=== PATIENT | female | born 1990 | race Caucasian/White ===

== ENCOUNTER → 2019-08-03 11:02 | Outpatient (BNVA) | payer OTHER, SELFPAY | PROVIDERS: Visit Provider Family Medicine | DX: J02.0 Streptococcal pharyngitis (principal) | CPT/HCPCS: 87880 ==

== ENCOUNTER 2020-04-27 02:30 | Inpatient (IN) | payer OTHER, MEDICAID, SELFPAY ==
[2020-04-27] VITALS (70 sets, daily range): BP systolic 0–140; BP diastolic 0–86; PULSE 75–127; RESP 15–101; TEMP 36.2–36.8; O2SAT 54–100; BMI 27.2
[2020-04-27] MEDS: lactated ringers 1,000 ML 999 ML IV ×4 (02:00→13:10)
[2020-04-27 02:21] LABS: Basophils % 0.2 %; Eosinophils % 0.2 %; Hematocrit 34.8 % (37.0-47.0); Hemoglobin 11.4 g/dL (11.5-15.3); Lymphocytes # 2.7 10^3/uL (0.8-4.8); Lymphocytes % 26.1 %; Mean Corpuscular HGB Conc 32.8 g/dL (30.0-36.0); Mean Corpuscular Hemoglobin 29.8 pg (28.0-34.0); Mean Corpuscular Volume 91.1 fL (81-99); Mean Platelet Volume 12.9 fL (7.4-10.4); Monocytes # 0.7 10^3/uL (0.2-0.9); Monocytes % 6.6 %; Neutrophils # 6.82 10^3/uL (1.8-7.7); Neutrophils % 66.1 %; Nucleated Red Blood Cells % 0.4 %; Platelet Count 149 10^3/cmm (130-400); Red Blood Count 3.82 10^6/uL (4.1-5.3); Red Cell Distribution Width 14.9 % (12.1-15.1); White Blood Count 10.3 10^3/uL (4.0-10.0)
[2020-04-27 02:25] LABS: Cocaine Screen Urine Negative (Negative); Opiate Screen Urine Negative (Negative); PCP Screen Urine Negative (Negative); THC Screen Urine Negative (Negative)
[2020-04-27 02:41] LABS: Amphetamines Screen Urine Negative (Negative); Barbiturates Screen Urine Negative (Negative); Benzodiazepines Screen Urine Negative (Negative)
[2020-04-27] MEDS: metoclopramide 5 mg/mL SDV 2 mL 10 MG IV (02:49)
[2020-04-27] MEDS: famotidine 20 mg/2 mL INJ IVP (02:49)
[2020-04-27] MEDS: citric acid-sodium citrate 30 mL UDC PO (02:49)
--- NOTE | 2020-04-27 03:04 | ANES.PREANE2 ---
Pre-Anesthetic Assessment Pre-Anesthetic Assessment: Height/Weight: Height 1.57 m Weight 67.585 kg Temp Pulse BP Pulse Ox 98.0 F 92 0/0 100 04/27/20 01:34 CS T 04/27/20 02:41 04/27/20 02:52 04/27/20 02:55 Preop Diagnosis: Repeat Familial anesthetic complications: None Was Beta Florentino taken within 24 hours: N/A Last intake: Ate at 1030 pm last night Exam: Pre-Anes Outpt Exam: alert, oriented x 3, clear to auscultation bilaterally and regular rate & rhythm Airway: MP: 2 Dentition: Full Anesthetic Plan: ASA status: 2E Anesthesia: Regional (specify below) Risk of > 500 ml blood loss (7ml/kg in children): Yes, adequate IV access and fluids planned Other Pertinent Information: Patient was admitted to [facility] [place] for Covid. Per patient she tested positive on 04/04. Per CDC guidelines for healthcare workers in patients with severe illness, covid positive patients may return to work/end isolation when at least 10 days have elapsed since symptoms began, 24 hrs without fever, and symptoms are improving. She meets these criteria. We will proceed in OB OR, but staff will use N95 masks d/t risk of intubation. Meds/Allergies Current Medications: Current Medications Generic Name Dose Route Start Last Admin Trade Name Freq PRN Reason Stop Dose Admin Lactated Ringer's 1,000 mls @ 999 m ls/hr 04/27/20 02:37 04/27/20 02:49 Lactated Ringers IV 04/27/20 03:37 999 mls/hr .Q1H1M ONE Administration PFSH Anesthesia PFSH: Medical History (Updated 04/27/20 @ 05:05 by Yao Lopez MD) Migraine headache Surgical History (Updated 04/27/20 @ 04:42 by Yao Lopez MD) S/P laparoscopic cholecystectomy (~10/2019) Was at the time. S/P primary low transverse (08/03/14) Performed by Dr. Lopez at [facility] in [place], [place]. Confirmed LTCS with 2 layer closure. Family History (Updated 04/27/20 @ 04:43 by Yao Lopez MD) Denies family history of Diabetes Anesthesia complication Bleeding disorder Hypertension Stroke Social History (Updated 04/27/20 @ 04:48 by Yao Lopez MD) Smoking and tobacco status: former smoker Quit status (tobacco): has quit using tobacco Year quit tobacco: 04/2019 Former quit date comment: Was smoking 1 PPD until switched to vaping in 2017. Quit in 04/2019. Smoking risk assessment/counseling performed?: Yes Alcohol intake: current Alcohol intake frequency: holidays/special occasions only Alcohol use comment: Denies alcohol during Substance/Drug Use: never Female Reproductive History: : 3 Para: 1 Spontaneous abortions: No Data Anesthesia CBC & Chem 7: 04/27/20 01:50 BAND ATTACHER 04/27/20 09:00 Other Labs: Laboratory Results - last 48 hr 04/27/20 04/27/20 04/27/20 01:50 BAND ATTACHER 01:50 BAND ATTACHER 02:00 WBC 10.3 H RBC 3.82 L Hgb 11.4 L Hct 34.8 L MCV 91.1 MCH 29.8 MCHC 32.8 RDW 14.9 Plt Count 149 MPV 12.9 H Neut % (Auto) 66.1 Lymph % (Auto) 26.1 [place] % (Auto) 6.6 Eos % (Auto) 0.2 Baso % (Auto) 0.2 Neut # (Auto) 6.82 Lymph # (Auto) 2.7 [place] # (Auto) 0.7 Eos # (Auto) 0.0 Baso # (Auto) 0.0 Nucleated RBC % (auto) 0.4 Nucleated RBCs # 0.0 Sodium Cancelled Potassium Cancelled Chloride Cancelled Carbon Dioxide Cancelled Anion Gap Cancelled BUN Cancelled Creatinine Cancelled GFR Calculation Cancelled Glucose Cancelled Calculated Osmolality Cancelled Calcium Cancelled Total Bilirubin Cancelled AST Cancelled ALT Cancelled Alkaline Phosphatase Cancelled Total Protein Cancelled Albumin Cancelled Globulin Cancelled Urine Opiates Screen Negative Ur Barbiturates Screen Negative Ur Phencyclidine Scrn Negative Ur Amphetamines Screen Negative U Benzodiazepines Scrn Negative Urine Cocaine Screen Negative U Marijuana (THC) Screen Negative Cardiac Studies: No Data to Display
[2020-04-27 03:17] LABS: Alanine Aminotransferase 55 U/L (0-33); Albumin Level 2.3 g/dL (3.5-5.2); Alkaline Phosphatase 317 IU/L (35-105); Aspartate Amino Transferase 69 U/L (0-32); Blood Urea Nitrogen 5 mg/dL (6-20); Calcium 7.4 mg/dL (8.5-10.5); Carbon Dioxide 17 mmol/L (22-29); Chloride 107 mmol/L (98-107); Globulin 2.7 g/dL (1.3-4.6); Glomerular Filtration Rate 41.3 mL/min (90-130); Glucose 66 mg/dL (65-115); Osmolality Calculated 301 mOsm/kg (285-295); Sodium 148 mmol/L (136-145); Total Bilirubin 0.9 mg/dL (0.15-1.2)
[2020-04-27 03:22] LABS: Anion Gap 27.1 (5-19); Potassium 3.1 mmol/L (3.5-5.1)
--- NOTE | 2020-04-27 04:25 | P.HP_ITS ---
Providers/Chief Complaint Admitting Physician: Yao Lopez MD Primary Care Provider: DOCTOR NOT ON STAFF Chief Complaint: Contractions HPI [facility] History of Present Illness Shana Mayberry is a 29 year old female, 3, para 1-0-1-1 with an EDC of 05/21/2020, which places her at 36-4/7 weeks gestation. care has been provided by Dr. Stallworth in [place]. Patient presented to labor and delivery at 01:00 on 04/27/2020 with complaint of contractions which started about 2 hours ago. She denied vaginal bleeding. She denied leaking of fluid. She reported baby had been moving. On presentation, she was found to be dottie every 3 to 4 minutes and was initially 70% effaced and 2 cm dilated. Fluid hydration was started. She was checked approximately 1 hour later and had made cervical change. She was admitted to the hospital. care was provided by Dr. Stallworth in [place], [place]. Her had been complicated by insulin requiring gestational diabetes. Patient states she has not been taking insulin due to her sugars being in the normal range . Patient reports she had also been hospitalized at [facility] in [place] on 04/04/2020 due to Covid and had spent 1 week in the hospital. records have been requested from [facility]. Denies currently taking any medications. Review of Systems Const: Denies: fever(s) or chills ENMT: Denies: throat pain or nasal congestion Card: Denies: chest pain, palpitations or lightheadedness Resp: Reports: non-productive cough; Denies: dyspnea or wheezing GI: Reports: abdominal pain (From contractions); Denies: nausea, vomiting, diarrhea or constipation : Denies: dysuria, vaginal bleeding, vaginal discharge or other (Leaking of fluid) Neuro: Denies: headache(s) or dizziness Psych: Denies: anxiety or depression Endo: Denies: cold intolerance or heat intolerance Kennedy/Lymph: Denies: easy bruising or easy bleeding Medications/Allergies Allergies Allergy/AdvReac Type Severity Reaction Status Date / Time No Known Allergies Allergy Verified 04/27/20 02:07 PFSH [facility] PFSH: Medical History (Updated 04/27/20 @ 05:05 by Yao Lopez MD) Migraine headache Surgical History (Updated 04/27/20 @ 04:42 by Yao Lopez MD) S/P laparoscopic cholecystectomy (~10/2019) Was at the time. S/P primary low transverse (08/03/14) Performed by Dr. Lopez at [facility] in [place], [place]. Confirmed LTCS with 2 layer closure. Family History (Updated 04/27/20 @ 04:43 by Yao Lopez MD) Denies family history of Diabetes Anesthesia complication Bleeding disorder Hypertension Stroke Social History (Updated 04/27/20 @ 04:48 by Yao Lopez MD) Smoking and tobacco status: former smoker Quit status (tobacco): has quit using tobacco Year quit tobacco: 04/2019 Former quit date comment: Was smoking 1 PPD until switched to vaping in 2018. Quit in 04/2019. Smoking risk assessment/counseling performed?: Yes Alcohol intake: current Alcohol intake frequency: holidays/special occasions only Alcohol use comment: Denies alcohol during Substance/Drug Use: never Other Female Reproductive History: Hx Age of Menarche: 14 Duration of menses: 3-5 days Cycle Length: every 28 to 30 days Menstrual flow: normal/abnormal: normal History History History 3 Term 1 Miscarriages/Ectopic 1 0 Living Children 1 Other History: 1 ---> 08/03/2014. Female, 7 lbs 0 oz, 40-2/7 weeks. Epidural. Primary LTCS due to arrest of dilation. Performed by Dr. Lopez at [facility] in [place], [place]. Did not dilate past 9 cm. 2 ---> Miscarriage Care BRIDGET Calculator Estimated Delivery Date Method Current WG Current Estimate 05/21/20 LMP (Certain) 36w 4d Vitals/I&O/Wt Last Vital Signs Temp 98.0 F 04/27/20 01:34 STAFF RADIATION THERAPIST Pulse 92 04/27/20 02:41 BP 0/0 04/27/20 02:52 Pulse Ox 100 04/27/20 02:55 Weight last 48 hrs Weight 149 lb Physical Exam Const: COMMON NORMALS: no acute distress, average body habitus, alert and well nourished GENERAL APPEARANCE: well developed ORIENTATION/CONSCIOUSNESS: Yes oriented to person, Yes oriented to place and Yes oriented to time Resp: COMMON NORMALS: normal respiratory effort and clear to auscultation bilaterally AUSCULTATION: clear to auscultation bilaterally Cardio: COMMON NORMALS: regular rate, regular rhythm, No gallops present (Cardio), No murmurs present (Cardio) and No rub (Cardio) RATE: regular rate RHYTHM: regular rhythm GI: COMMON NORMALS: Soft to palpation, non-tender, No hepatosplenomegaly present and no masses (Except for gravid uterus) INSPECTION: Yes gravid abdomen AUSCULTATION: Yes normoactive bowel sounds PALPATION: Yes Soft to palpation, Yes No hepatosplenomegaly present and No Hernia present : EXTERNAL FEMALE EXAM: No Hernia present OTHER: External genitalia: Normal in appearance with no lesions seen. Normal hair distribution. Anus/perineum: No perineal lesions noted. Urethral meatus: Normal in size and location with no lesions or prolapse noted. Urethra: Nontender with no palpable masses noted. Bladder: Nontender with no palpable masses noted. Vagina: No palpable masses noted. Cervix: 90% effaced, 7 to 8 cm dilated, 0 station, bulging membranes. Uterus: Gravid Adnexa: Neither palpable Extremity: COMMON NORMALS: no calf tenderness NARRATIVE EXTREMITY EXAM: Trace to 1+ lower extremity edema Neuro: SENSORIUM/ORIENTATION: Yes alert, Yes oriented to person, Yes oriented to place and Yes oriented to time Psych: COMMON NORMALS: normal affect MOOD & AFFECT: Yes euthymic mood Skin: COMMON NORMALS: no rashes or lesions noted GENERAL SKIN EXAM: no rashes or lesions noted Urinary Catheter Management^: Figueroa: Cath Placed During This Visit: yes Urinary Catheter Date of Insertion: 04/27/20 Urinary Catheter Time of Insertion: 03:20 Data : 04/27/20 01:50 STAFF RADIATION THERAPIST 04/27/20 02:45 A&P Assessment and plan (1) labor: at 36-4/7 weeks gestation. Patient presented in labor. She has made cervical change despite IV hydration. She is progressing rapidly. As a result, she is being prepared for delivery. Technology Applications Engineer has been notified regarding . Status: Acute Qualifiers: labor trimester: third trimester labor delivery status: without delivery Qualified Code(s): O60.03 - labor without delivery, third trimester (2) Maternal care for unspecified type scar from previous delivery: Patient has had a prior low transverse section. I discussed with her that with her rapid progression and her prior incision, she may want to consider attempting . Patient states she does not want to deliver vaginally and wants to proceed with section. Risks of were discussed with her including bleeding to the point of needing a blood transfusion, infection, and injury to intra-abdominal organs including bowel, bladder, blood vessels, nerves, and ureters. Questions were answered. She still wished to proceed with . She is being prepared for a repeat section. Status: Acute Qualifiers: Previous scar type: low transverse Qualified Code(s): O34.211 - Maternal care for low transverse scar from previous delivery (3) Diabetes in : Patient reports having been diagnosed with gestational diabetes. States was prescribed a long-acting and short acting insulin. However, she states she has not been taking the insulin due to her sugars being in the normal range . Sugar before surgery was 66. Status: Acute Qualifiers: Diabetes in type: gestational Gestational diabetes mellitus control: insulin-controlled Trimester: third trimester Qualified Code(s): O24.414 - Gestational diabetes mellitus in , insulin controlled (4) COVID-19 affecting childbirth: Patient reports was diagnosed with Covid on 04/04/2020 and was hospitalized at [facility] for 1 week. She is denying symptoms at this time. Status: Acute Attestations Medical Necessity Statement*: Patient is in labor and will be having a repeat . Coding Level of Care Code Acute Kier Hand for Chg Fwd Diagnoses labor O60.03 labor trimester: third trimester labor delivery status: without delivery Maternal care for unspecified type scar from previous delivery O34.211 Previous scar type: low transverse Diabetes in O24.414 Diabetes in type: gestational Gestational diabetes mellitus control: insulin-controlled Trimester: third trimester COVID-19 affecting childbirth O98.52; U07.1
[2020-04-27 04:40] LABS: Bilirubin Urine 2+ (Negative); Blood Urine 2+ (Negative); Glucose Urine UA Norm (Normal); Ketones Urine 2+ (Negative); Leukocyte Esterase Urine Trace (Negative); Nitrate Urine Positive (Negative); Protein Urine 1+ (Negative); Urine Color Orange (Yellow); Urobilinogen Urine 4+ mg/dL (Negative); pH Urine 5 (5-7)
[2020-04-27 04:41] LABS: Add Urine Culture? Yes; Bacteria Urine 1+ /hpf; Hyaline Casts Urine 0-4 /lpf; RBC Urine 0-4 /hpf (0-2)
--- NOTE | 2020-04-27 05:11 | PM.OP ---
Operative Report Date of procedure: April 27, 2020 Pre-op Diagnosis: 1. labor at 36-4/7 weeks gestation 2. Prior low transverse section 3. Insulin controlled gestational diabetes 4. Recent Covid infection. Post-op Diagnosis: 1. labor with delivery at 36-4/7 weeks gestation. 2. Previous low transverse section. 3. Insulin controlled gestational diabetes - delivered 4. Recent Covid infection. 5. Viable female . 6. Meconium fluid. Procedure Done: Repeat low transverse section Specimens removed/disposition: None Surgeon: Yao Lopez Communications Programmer: Ian Anesthesia: Other (Spinal) Estimated blood loss (mL): 300 IV fluids (mL): 2,000 Complications: None Findings: 1. Viable female infant, cephalic presentation, weight 5 lbs 7 oz (2465 g), length 19-1/2 inches, Apgars 8 at 1 minute and 9 at 5 minutes. 2. Thick meconium fluid. 3. Normal-appearing uterus, tubes, and ovaries. Brief History: Patient is a 29-year-old female, 3, para 1-0-1-1 with an LMP of 08/15/2019 and an EDC of 05/21/2020 based on LMP and consistent with 11-week ultrasound, which places her at 36-4/7 weeks gestation today. Her care has been provided by Dr. Stallworth in [place]. Patient presented to labor and delivery at 01:00 on 04/27/2020 with complaint of contractions. She was found to be dottie regularly and was 70% effaced and 2 cm dilated. Fluid hydration was started. Approximately 1 hour later she was checked and had made further cervical change. Patient had had a prior section and was declining . As a result, she was prepared for a repeat section. In addition, patient had been hospitalized on 04/04/2020 after being diagnosed with Covid and spent approximately 1 week and [facility] in [place]. Procedure: Patient was taken to the operating room where spinal anesthesia was obtained. She was prepped and draped in the usual sterile fashion in a dorsal supine position with a leftward tilt. Figueroa catheter and sequential compression boots had been placed prior to starting the case. A Pfannenstiel skin incision was made with a knife through the patient's prior Pfannenstiel scar and carried down to the underlying fascia with the knife. Fascia was incised in the midline with the knife and extended laterally with Falcon scissors. Superior aspect of the fascia was grasped with Kat clamps, elevated, and sharply and bluntly dissected. The inferior aspect of the fascia was grasped with Kat clamps, elevated, and sharply and bluntly dissected. The rectus muscles were in the midline. Peritoneum was sharply entered. Peritoneal incision was extended both superiorly and inferiorly with good visualization of the bladder. Bladder blade was inserted. The vesicouterine peritoneum was tented up and sharply entered. It was extended laterally and the bladder flap was created digitally. Bladder blade was reinserted. A transverse incision was made with the knife in the lower uterine segment. Thick meconium fluid was obtained upon entry into the uterine cavity. The infant's head was delivered and no nuchal cords were noted. The rest of the delivered atraumatically. Cord was clamped and cut and the infant was handed off to Dr. Suero and the waiting nurses. Cord blood was obtained. Placenta was delivered via uterine massage. Patient received 20 units of Pitocin in the IV fluids. The uterus was exteriorized and cleared of clots and debris. The uterine incision was closed in a running locking fashion using 0 Vicryl suture. The incision was imbricated using 0 Vicryl suture in a horizontal mattress fashion. The incision was inspected and noted to be hemostatic. Posterior cul-de-sac was thoroughly irrigated and cleared of clots and blood. The uterus was returned to the abdomen. The uterine incision was irrigated and noted to be hemostatic. The gutters were cleared of clots and blood. The rectus muscles and peritoneum were reapproximated in the midline using interrupted stitches of 2-0 Vicryl suture. The muscle layer was irrigated and noted to be hemostatic. The fascia was reapproximated using 0 Vicryl suture in a running fashion. The subcutaneous layer was irrigated and brought to hemostasis using electrocautery. It was reapproximated using 3-0 plain suture in an interrupted fashion. Skin was reapproximated using 4-0 Vicryl suture in a subcuticular fashion. Steri-Strips were applied. Patient tolerated the procedures well. Sponge, needle, and instrument counts were correct. DRAINS: Figueroa catheter POSTOPERATIVE STATUS: The patient was left to recover in satisfactory condition
[2020-04-27] MEDS: dextrose 5% + KCl 20 mEq 20 MEQ/1,000 ML BAG 125 MEQ IV (07:49)
[2020-04-27] MEDS: ketorolac 30 mg/mL INJ IVP (08:54)
[2020-04-27 09:27] LABS: Anion Gap 16.8 (5-19); Blood Urea Nitrogen 6 mg/dL (6-20); Carbon Dioxide 23 mmol/L (22-29); Chloride 107 mmol/L (98-107); Glomerular Filtration Rate 59.1 mL/min (90-130); Glucose 73 mg/dL (65-115); Osmolality Calculated 294 mOsm/kg (285-295); Sodium 144 mmol/L (136-145)
[2020-04-27 09:33] LABS: Potassium 2.8 mmol/L (3.5-5.1)
[2020-04-27] MEDS: potassium chloride ER 10 mEq Tablet 40 MEQ PO (10:01)
[2020-04-27] MEDS: ondansetron 2 mg/ML SDV 2 mL 4 MG IVP ×2 (10:50→16:39)
--- NOTE | 2020-04-27 13:14 | P.ANESPOST_ITS ---
Inpatient post-anesthesia follow up: Airway intact: Yes Vital signs: Temperature 97.6 F Pulse Rate 98 Respiratory Rate 16 Blood Pressure 106/69 Pulse Oximetry 98 Oxygen Delivery Me thod Room Air Oxygen Flow Rate Fraction of Inspir ed Oxygen Hydration adequate: No Nausea and vomiting: No Pain level: 3 Mental status: Baseline Additional Comments: Patient's UOP low (she had [facility]O at [facility] a few weeks ago). Figueroa still in place, not up and walking but patient says no residual numbness/weakness in legs. States she still feels shaky. NO signs of infection at spinal site. denies headache
--- NOTE | 2020-04-27 13:18 | USR_ITS ---
PROCEDURE INFORMATION: Exam: US Retroperitoneal; Complete; Kidneys and Bladder Exam date and time: 04/27/2020 1:52 PM Age: 29 years old Clinical indication: Other: Low urine output; Prior surgery; Surgery date: Post-operative (0-2 days); Surgery type: TECHNIQUE: Imaging protocol: Real-time ultrasound of the retroperitoneum with image documentation. Complete exam focused on the kidneys and bladder. COMPARISON: US Viabile 1-10 Wk [id number] 06/10/2019 12:08 AM FINDINGS: Pancreas: Not visualized secondary to overlying bowel gas. Right kidney: Both kidneys appears somewhat echogenic however this may be secondary to the suboptimal images. Left kidney: Both kidneys appears somewhat echogenic however this may be secondary to the suboptimal images. Bladder: There is a Figueroa catheter in place. The bladder is not well seen. Proximal abdominal aorta measures 1.5 cm in the AP dimension. Mid abdominal aorta measures 1.4 cm in the AP dimension. US/US renal BI* [id number] IMPRESSION: Suboptimal study secondary to the large amount of bowel gas. Both kidneys appears somewhat echogenic however this may be secondary to the suboptimal images.
--- NOTE | 2020-04-27 14:08 | P.CONIM_ITS ---
Providers/Reason For Consult Consulting Physican/Specialty*: Mike Stone, internal medicine Reason for Consult*: Poor urine output Attending Physician: Yao Lopez MD Primary Care Provider: DOCTOR NOT ON STAFF History of Present Illness History of Present Illness Shana Mayberry is a 29 year old female who underwent when she presented with labor on April 27 at 36-4/7 weeks gestation. care was done in [place], complicated by gestational diabetes. She had not been taking her insulin as prescribed. She reports a recent hospitalization, following the diagnosis of Covid around April 04. She reports she stayed 5 days and had a diagnosis of acute kidney injury at that time that improved with IV fluids. She reports no previous history of kidney issues. Since her uneventful this morning, she has been getting quite a bit of fluid b oluses and urine output has remained poor. Patient reports she feels less swollen than she did this morning prior to delivery. She reports she believes she was dehydrated prior to coming to the hospital secondary to some intermittent vomiting and poor appetite. After consultation was obtained, patient started having some slurred speech. A blood sugar has been checked and normal in the 90s. She reports no focal weakness. She has not had of evidence of eclampsia/preeclampsia on admission. Blood pressures have been low normal. She did not have significant proteinuria in her urine. She has not had any shortness of breath. Interestingly she reports she had some slurred speech following delivery of her last child that lasted around a day, and did not require any intervention. Review of Systems General: Reports: 10 or more systems reviewed and unremarkable except in HPI and below Const: Denies: fever(s) or chills Eyes: Denies: change in vision ENMT: Denies: throat pain Card: Denies: chest pain Resp: Denies: dyspnea GI: Denies: abdominal pain : Denies: flank pain Musc: Denies: neck pain Skin/Breast: Denies: rash Neuro: Reports: other (Slurred speech); Denies: headache(s) Psych: Denies: anxiety Endo: Denies: polyuria Kennedy/Lymph: Denies: easy bruising All/Imm: Denies: urticaria Meds/Allergies Home Medications and Allergies Home Medications Medication Instructions Recorded Confirmed Last Taken Type No Known Home Medications 04/27/20 04/27/20 Unknown History Allergies Allergy/AdvReac Type Severity Reaction Status Date / Time No Known Allergies Allergy Verified 04/27/20 02:07 Current Medications Current Medications Generic Name Dose Route Start Last Admin Trade Name Freq PRN Reason Stop Dose Admin Docusate Sodium 100 mg 04/27/20 09:00 04/27/20 07:58 Colace PO Not Given BID ALEXIA Dextrose/Lactated Ringer's 1,000 mls @ 125 mls/hr 04/27/20 07:02 04/27/20 07:56 Dextrose 5%-Lactated Ringers IV Not Given .Q8H ALEXIA Potassium Chloride/Dextrose 20 meq in 1,000 mls @ 100 mls/hr 04/27/20 08:00 04/27/20 13:15 Dextrose 5% + Kcl 20 Meq IV 0 mls/hr .Q10H ALEXIA Infusion Lactated Ringer's 1,000 mls @ 999 mls/hr 04/27/20 13:15 04/27/20 13:10 Lactated Ringers IV 999 mls/hr .Q1H1M ALEXIA Administration Ondansetron HCl 4 mg 04/27/20 07:02 04/27/20 10:50 Zofran IVP 4 mg Q4H PRN Administration NAUSEA AND VOMITING Multivit/Folic Acid/Iron 1 cap 04/27/20 08:00 04/27/20 07:58 -U PO Not Given BREAKFAST ALEXIA PFSH Acute PFSH: Medical History Migraine headache Surgical History S/P laparoscopic cholecystectomy (~10/2019) Was at the time. S/P primary low transverse (08/03/14) Performed by Dr. Lopez at [facility] in [place], [place]. Confirmed LTCS with 2 layer closure. Family History Denies family history of Diabetes Anesthesia complication Bleeding disorder Hypertension Stroke Social History Smoking and tobacco status: former smoker Quit status (tobacco): has quit using tobacco Year quit tobacco: 04/2019 Former quit date comment: Was smoking 1 PPD until switched to vaping in 2017. Quit in 04/2019. Smoking risk assessment/counseling performed?: Yes Alcohol intake: current Alcohol intake frequency: holidays/special occasions only Alcohol use comment: Denies alcohol during Substance/Drug Use: never Female Reproductive History: : 3 Para: 1 Spontaneous abortions: No Vitals/I&O/Wt Last Vital Signs Temp 97.8 F 04/27/20 12:42 Pulse 103 H 04/27/20 13:25 Resp 16 04/27/20 13:25 BP 106/73 04/27/20 13:25 Pulse Ox 98 04/27/20 12:42 04/26/20 04/27/20 04/27/20 23:59 06:59 14:59 Intake Total 1862.500 / 1862.500 Output Total 355 / 355 Balance 1507.500 / 1507.500 Weight last 48 hrs Weight 67.585 kg Physical Exam Narrative: EXAM NARRATIVE: General exam is a white female, with significant other and child at bedside. She slurs words occasionally, and at other times is relatively clear. HEENT: Pupils equally round. Oropharynx clear. No nystagmus Neck is supple without lymphadenopathy or thyromegaly Cardiovascular slight tachycardia, no murmur Lungs clear no wheezing or crackles Abdomen is soft, positive bowel sounds. scar noted demonstrates Figueroa Extremities 1+ edema, no cyanosis or clubbing Neurologic: No focal deficits. Mild slurring of the speech. Alert and oriented. Urinary Catheter Management^: Figueroa: Cath Placed During This Visit: yes Urinary Catheter Date of Insertion: 04/27/20 Urinary Catheter Time of Insertion: 03:20 Data Other Data: Other data: AST 69, ALT 55, alk phos 317, albumin 2.3 Urinalysis demonstrated 1+ protein, 0-4 reds and 5-10 whites and 5-10 squamous. Urine drug screen was negative A&P Assessment and plan (1) Decreased urine output: Etiology is yet to be determined Renal ultrasound is appropriate to make sure catheter is placed in bladder, no evidence of hydronephrosis As she has had 3500 cc in, will place on just maintenance fluids currently and await ultrasound Repeat CBC currently in case blood loss could be reason for diminished urine output Repeat CMP Status: Acute (2) Acute kidney injury: Maintenance IV fluids at 100 cc an hour Evaluation as above Avoid any renal toxic medication, anti-inflammatories. Status: Acute (3) Hypokalemia: Repeating CMP currently. Check magnesium level Supplement electrolytes as needed Status: Acute (4) Transaminitis: Awaiting repeat LFTs Status: Acute (5) Slurred speech: No obvious focal deficits. May be related to electrolyte abnormality. Await laboratory. She is getting D5W currently. This may be too hypotonic even though she has intermittently gotten boluses of LR and NS. Will discontinue. Provide normal saline at 75 cc an hour. She did get a dose of Benadryl this morning we will discontinue this. Status: Acute (6) Maternal care for unspecified type scar from previous delivery: Status: Acute Qualifiers: Previous scar type: low transverse Qualified Code(s): O34.211 - Maternal care for low transverse scar from previous delivery (7) COVID-19 affecting childbirth: History of Covid earlier, approximately April 04. She has passed any quarantine dates. Status: Acute (8) Diabetes in : Blood sugar 90s during my evaluation. Status: Acute Qualifiers: Diabetes in type: gestational Gestational diabetes mellitus control: insulin-controlled Trimester: third trimester Qualified Code(s): O24.414 - Gestational diabetes mellitus in , insulin controlled Additional A&P Information Thank you for this consultation, I will continue to follow the patient. Consult Attestations Medical Necessity Statement: As per primary Time Spent in Patient Care: Greater than 35 minutes Coding Level of Care Code Acute Sales Contract Administrator for Chg Fwd Diagnoses Decreased urine output R34 Acute kidney injury N17.9 Hypokalemia E87.6 Transaminitis R74.01 Slurred speech R47.81 Maternal care for unspecified type scar from previous delivery O34.211 Previous scar type: low transverse COVID-19 affecting childbirth O98.52; U07.1 Diabetes in O24.414 Diabetes in type: gestational Gestational diabetes mellitus control: insulin-controlled Trimester: third trimester
[2020-04-27 14:10] LABS: Glucose Point of Care 93 mg/dL (70-110)
[2020-04-27] MEDS: sodium chloride 0.9% 1,000 ML 75 ML IV (14:43)
[2020-04-27 15:51] LABS: Basophils % 0.2 %; Eosinophils % 0.3 %; Hematocrit 31.6 % (37.0-47.0); Lymphocytes # 2.7 10^3/uL (0.8-4.8); Lymphocytes % 23.1 %; Mean Corpuscular HGB Conc 31.6 g/dL (30.0-36.0); Mean Corpuscular Hemoglobin 29.7 pg (28.0-34.0); Mean Corpuscular Volume 93.8 fL (81-99); Mean Platelet Volume 12.7 fL (7.4-10.4); Monocytes # 0.7 10^3/uL (0.2-0.9); Monocytes % 6.4 %; Neutrophils # 7.93 10^3/uL (1.8-7.7); Neutrophils % 69.3 %; Nucleated Red Blood Cells % 0.3 %; Platelet Count 112 10^3/cmm (130-400); Red Blood Count 3.37 10^6/uL (4.1-5.3); Red Cell Distribution Width 14.7 % (12.1-15.1); White Blood Count 11.5 10^3/uL (4.0-10.0)
[2020-04-27 16:07] LABS: Alanine Aminotransferase 39 U/L (0-33); Albumin Level 1.8 g/dL (3.5-5.2); Alkaline Phosphatase 254 IU/L (35-105); Anion Gap 14.9 (5-19); Aspartate Amino Transferase 61 U/L (0-32); Blood Urea Nitrogen 5 mg/dL (6-20); Calcium 7.3 mg/dL (8.5-10.5); Carbon Dioxide 24 mmol/L (22-29); Chloride 107 mmol/L (98-107); Globulin 2.3 g/dL (1.3-4.6); Glomerular Filtration Rate 44.8 mL/min (90-130); Glucose 85 mg/dL (65-115); Magnesium 1.1 mg/dL (1.7-2.3); Osmolality Calculated 293 mOsm/kg (285-295); Sodium 143 mmol/L (136-145); Thyroid Stimulating Hormone 3.29 uIU/mL (0.27-4.20); Total Bilirubin 0.7 mg/dL (0.15-1.2); Total Protein 4.1 g/dL (6.6-8.7)
[2020-04-27 16:10] LABS: Potassium 2.9 mmol/L (3.5-5.1)
[2020-04-27] MEDS: magnesium sulfate premix 2 GM/50 ML PIGGYBACK IV (16:39)
[2020-04-27] MEDS: potassium chloride premix 100 ML 25 MEQ IV (16:40)
--- NOTE | 2020-04-27 21:30 | PC.NURSE ---
This nurse called Dr. Stone to verify who to contact about care of patient. states night hospitalist will take over. DYLON RN
--- NOTE | 2020-04-27 21:45 | PC.NURSE ---
Dr. Willis called to floor for another update on patient. Reported to MD that Dr. Stone is off call and this nurse will report to overnight hospitalist. DYLON CANAS
[2020-04-27] MEDS: sodium chloride 0.9% 1,000 ML 150 ML IV (22:35)
[2020-04-27 22:53] LABS: Blood Urea Nitrogen 5 mg/dL (6-20); Calcium 7.6 mg/dL (8.5-10.5); Carbon Dioxide 24 mmol/L (22-29); Chloride 105 mmol/L (98-107); Glomerular Filtration Rate 53.5 mL/min (90-130); Glucose 61 mg/dL (65-115); Magnesium 1.7 mg/dL (1.7-2.3); Osmolality Calculated 287 mOsm/kg (285-295); Sodium 141 mmol/L (136-145)
[2020-04-27 22:54] LABS: Anion Gap 15.6 (5-19); Potassium 3.6 mmol/L (3.5-5.1)
--- NOTE | 2020-04-27 22:54 | CTR_ITS ---
PROCEDURE INFORMATION: Exam: CT Head Without Contrast Exam date and time: 04/27/2020 10:58 PM Age: 29 years old Clinical indication: Speech disturbance; Patient HX: Slurred speech S/P today TECHNIQUE: Imaging protocol: Computed tomography of the head without contrast. Radiation optimization: All CT scans at this facility use at least one of these dose optimization techniques: automated exposure control; mA and/or kV adjustment per patient size (includes targeted exams where dose is matched to clinical indication); or iterative reconstruction. COMPARISON: CT head wo con* [id number] 03/06/2018 11:52 PM RADIATION DOSE METRICS: Total DLP (mGy-cm): 760.88 FINDINGS: Brain: No acute intracranial hemorrhage or mass effect. No definite acute infarct by CT. MRI could be more sensitive/specific for detection, as clinically directed. Cerebral ventricles: Ventricle size is normal for age. Bones/joints: No definite acute skull fracture. Paranasal sinuses: Complete opacification of the right maxillary sinus. Moderate opacification/fluid in the frontal sinus. 8 mm retention cyst or polyp in the sphenoid sinus. Mastoid air cells: No significant acute finding. CT/CT head wo con* [id number] IMPRESSION: 1. No acute intracranial hemorrhage or mass effect. 2. No definite acute infarct by CT, see above. 3. Paranasal sinus findings as discussed above. 4. Other findings discussed above. Radiation Dose CTDIVOL = (mGy): DLP = 760.88 (mGy-cm)
--- NOTE | 2020-04-27 23:00 | PC.NURSE ---
Report given to Dr. Brown on vital signs, urine output, slurred speech that has continued from today. Orders received for head CT stat, transfer of care to ICU. DYLON CANAS
--- NOTE | 2020-04-27 23:10 | PC.NURSE ---
Patient transferred to CT with this RN at bedside. Dr. Brown to CT and at bedside of patient. DYLON RN
--- NOTE | 2020-04-27 23:15 | PC.NURSE ---
Orders received from . D50 amp one vial to be given stat, Q2H neuro checks to be done when transferred to ICU. Orders placed.
[2020-04-27] MEDS: dextrose 50% syringe 50 mL IVP (23:30)
[2020-04-28] VITALS (80 sets, daily range): BP systolic 92–126; BP diastolic 56–89; PULSE 88–121; RESP 0–22; TEMP 36.3–36.9; O2SAT 96–100
[2020-04-28 00:19] LABS: Glucose Point of Care 53 mg/dL (70-110)
[2020-04-28 00:19] LABS: Glucose Point of Care 138 mg/dL (70-110)
--- NOTE | 2020-04-28 00:32 | PC.NURSE ---
Patient arrived to ICU around 0000. Patient's lung sounds are clear, alert and orientated, mild slurred speech. V/S all WNL. Neuro checks to be performed per orders. Figueroa in place and draining urine. Post op c section incision intact and well approximated and no drainage noted. Call light within reach. Continue care.
[2020-04-28] MEDS: potassium chloride premix 100 ML 50 MEQ IV (00:38)
[2020-04-28 02:56] LABS: Urine Creatinine 325 mg/dL (28-217); Urine Random Chloride 26 mmol/L; Urine Random Sodium 38 mmol/L
[2020-04-28] MEDS: FUROsemide 10 mg/mL SDV 2mL 20 MG IVP (03:39)
[2020-04-28] MEDS: sodium chloride 0.9% 1,000 ML 150 ML IV ×2 (04:31→10:55)
--- NOTE | 2020-04-28 04:42 | PC.NURSE ---
Patient resting in bed at this time. All v/s and neuro checks have been wnl. Speech is still somewhat slurred but patient is able to voice concerns, it just takes patient a few minutes. Call light within reach. Continue care.
[2020-04-28 05:16] LABS: Alanine Aminotransferase 34 U/L (0-33); Albumin Level 1.8 g/dL (3.5-5.2); Alkaline Phosphatase 250 IU/L (35-105); Aspartate Amino Transferase 54 U/L (0-32); Blood Urea Nitrogen 4 mg/dL (6-20); Calcium 7.4 mg/dL (8.5-10.5); Carbon Dioxide 23 mmol/L (22-29); Chloride 107 mmol/L (98-107); Globulin 2.4 g/dL (1.3-4.6); Glomerular Filtration Rate 59.1 mL/min (90-130); Glucose 67 mg/dL (65-115); Magnesium 1.5 mg/dL (1.7-2.3); Osmolality Calculated 289 mOsm/kg (285-295); Sodium 142 mmol/L (136-145); Total Bilirubin 0.6 mg/dL (0.15-1.2); Total Protein 4.2 g/dL (6.6-8.7)
--- NOTE | 2020-04-28 06:17 | PC.NURSE ---
SHIFT SUMMARY: Patient is currently resting in room with eyes closed. Patient still exhibits some slurred speech, but comprehendible. All v/s have been wnl. Urine output so far thus shift was 1700mL. Neuro checks are all WNL. Call light within reach. Continue care.
[2020-04-28] MEDS: docusate sodium 100 mg Capsule PO ×2 (08:03→18:56)
[2020-04-28] MEDS: HYDROcodone-acetaminophen 5-325 mg Tablet PO ×2 (08:03→18:54)
[2020-04-28] MEDS: lanolin oint 7 gm 1 APPLIC TOPICAL (08:03)
[2020-04-28 08:13] LABS: Basophils % 0.1 %; Eosinophils % 0.4 %; Hematocrit 32.4 % (37.0-47.0); Hemoglobin 10.4 g/dL (11.5-15.3); Lymphocytes # 2.7 10^3/uL (0.8-4.8); Lymphocytes % 26.4 %; Mean Corpuscular HGB Conc 32.1 g/dL (30.0-36.0); Mean Corpuscular Hemoglobin 29.7 pg (28.0-34.0); Mean Corpuscular Volume 92.6 fL (81-99); Mean Platelet Volume 12.9 fL (7.4-10.4); Monocytes # 0.6 10^3/uL (0.2-0.9); Monocytes % 5.5 %; Neutrophils # 6.84 10^3/uL (1.8-7.7); Nucleated Red Blood Cells % 0.4 %; Platelet Count 142 10^3/cmm (130-400); Red Cell Distribution Width 14.8 % (12.1-15.1); White Blood Count 10.2 10^3/uL (4.0-10.0)
[2020-04-28] MEDS: potassium chloride ER 10 mEq Tablet 40 MEQ PO (09:17)
--- NOTE | 2020-04-28 10:01 | PC.CHAP ---
Pastoral Care Encounter/Spiritual Assessment Type of Contact [] Declined supervisor newspaper deliveries visit [] Patient/Family/Request visit [] Outpatient visit [] Follow-up visit [] Physician referral [] Code/Alert [] Routine visit [] Staff referral [] Actively dying [] Patient sleeping [] Family support [] [] Out of room [] Palliative care [] [] Receiving care in room [] Pre-surgical visit [] Trauma [] Long length of stay [] ICU visit [] Other: Relational/Emotional Strength [] Patient feels connected with others/family/visitors/staff [] Distress [] Loneliness/isolation [] Abandonment Spirituality of Patient [] Person of Nayeli [] Attends Congregational of their Nayeli [] Believes in Prayer [] Reads Bible or Christianity materials [] There are Spiritual issues to be addressed Door Installer Interventions [x] Prayer [] Active listening [] Non-anxious presence [] Spiritual/emotional support [] Crisis/trauma care [] Spiritual counseling [] Bereavement support [] Provided bereavement packet [] Provided Bible/devotional materials [] Provided toy/stuffed animal, coloring book to patient or family member [] Provided Communion [] Anointing/[place] [] Salvation [x] Completed spiritual assessment [] Other: Impact on Illness or Injury [] Angry [] Fearful [] Anxious [] Often cries [] Exhaustion [] Unable to work [] Unable to attend advent [] Unable to walk/stand [] Unable to read [] Unable to drive [] Unable to eat/drink [] Unable to sleep [] Unable to be with family [] Patient intubated [] Other: Summary Time spent with patient
--- NOTE | 2020-04-28 10:20 | PC.NURSE ---
[id number] Report received from FLORES[facility]. Upon report patient has had slurred speech since delivery. is aware and continuing to watch. Upon nursing assessment patient is A&O X4. Slight slurred speech noticed by nurse. Catheter in place and draining adequately. vital signs WNL. 0930 Nurse entered room. patient laying in bed and watching TV. Speech seems to have improved from first assessment. Patient requesting to be transferred back to OB to see her baby.
--- NOTE | 2020-04-28 10:55 | PM.PN ---
Subjective Subjective: Interval history: patient was seen and examined.She deny any active complain.She has denied sob,chest pain,nausea,vomitting,headache,cough,fever,abdominal pain. Vitals and labs have reviewed. Medications: Reviewed: Yes Vitals/I&O/Wt Last Vital Signs Temp 98.1 F 04/28/20 08:00 Pulse 102 H 04/28/20 10:10 Resp 14 04/28/20 10:10 BP 118/69 04/28/20 10:10 Pulse Ox 97 04/28/20 10:10 04/27/20 04/28/20 04/28/20 22:59 06:59 14:59 Intake Total 1050 / 3079.000 1010 / 4089.000 960 / 960 Output Total 66 / 426 1710 / 2136 Balance 984 / 2653.000 -700 / 1953.000 960 / 960 Weight last 48 hrs Weight 67.585 kg Physical Exam Const: COMMON NORMALS: patient oriented x3 and alert ORIENTATION/CONSCIOUSNESS: Yes oriented to person, Yes oriented to place and Yes oriented to time HENMT: COMMON NORMALS: normocephalic, atraumatic, hearing grossly normal bilaterally and external ears normal HEAD & SCALP: normocephalic and atraumatic EXTERNAL EAR: Yes external ears normal Eye: COMMON NORMALS: no scleral icterus GENERAL EYE: appearance normal, both eyes and all related structures Chest: COMMONS NORMALS: normal inspection of the chest and normal palpation of entire chest wall CHEST: Yes Symmetrical chest wall rise Resp: COMMON NORMALS: normal respiratory effort, No retractions, No use of accessory muscles and clear to auscultation bilaterally EFFORT & INSPECTION: Yes symmetric chest movement AUSCULTATION: clear to auscultation bilaterally Cardio: COMMON NORMALS: regular rate, regular rhythm, S1 normal heart sound present, S2 normal heart sound present, No gallops present (Cardio), No murmurs present (Cardio), No rub (Cardio) and Peripheral pulses 2+ throughout RATE: regular rate RHYTHM: regular rhythm HEART SOUNDS: S1 normal heart sound present and S2 normal heart sound present PERIPHERAL PULSES: Peripheral pulses 2+ throughout GI: COMMON NORMALS: Normal to inspection, nondistended, normoactive bowel sounds present, Soft to palpation, non-tender, No hepatosplenomegaly present and no masses AUSCULTATION: Yes normoactive bowel sounds PALPATION: Yes Soft to palpation and Yes No hepatosplenomegaly present RECTAL EXAM: deferred Extremity: COMMON NORMALS: no clubbing, cyanosis or edema NARRATIVE EXTREMITY EXAM: Trace B/L L/E Edema Neuro: COMMON NORMALS: patient oriented x3, CN's II-XII intact bilaterally, moves all extremities, no focal motor deficits, no sensory deficits noted and deep tendon reflexes 2+ bilaterally SENSORIUM/ORIENTATION: Yes alert, Yes oriented to person, Yes oriented to place and Yes oriented to time Urinary Catheter Management^: Figueroa: Cath Placed During This Visit: yes Urinary Catheter Date of Insertion: 04/27/20 Urinary Catheter Time of Insertion: 03:20 Data : 04/28/20 04:25 04/28/20 04:25 Micro: Microbiology 04/27/20 02:00 Urine Culture - Preliminary Urine Catheterized A&P Assessment and plan (1) Decreased urine output: Currently she is having good urine output.U/O in last 24h:2681 I/O: 3099/2681 Continue to maintain balanced I/O. Continue to Monitor CMP. U/S Renal : Right kidney: Both kidneys appears somewhat echogenic however this may be secondary to the suboptimal images. Left kidney: Both kidneys appears somewhat echogenic however this may be secondary to the suboptimal images. Status: Acute (2) Acute kidney injury: Resolved Current SCR :1.1 Maintenance IV fluids at 100 cc an hour Evaluation as above Avoid any renal toxic medication, anti-inflammatories. Status: Acute (3) Hypokalemia: Continue to replace P.O Pottasium and monitor BMP. Continue to monitor Serum Magnesium and replace adequately. Status: Acute (4) Transaminitis: Improving.Repeat LFT is trending down. Hepatitis panel is negaive. Status: Acute (5) Slurred speech: Has improved. C.T Head without contrast : No acute intracranial pathology. No obvious focal deficits. Status: Acute (6) Maternal care for unspecified type scar from previous delivery: Status: Acute Qualifiers: Previous scar type: low transverse Qualified Code(s): O34.211 - Maternal care for low transverse scar from previous delivery (7) COVID-19 affecting childbirth: History of Covid earlier, approximately April 04. She has passed any quarantine dates. Status: Acute (8) Diabetes in : Blood sugar 90s during my evaluation. Status: Acute Qualifiers: Diabetes in type: gestational Gestational diabetes mellitus control: insulin-controlled Trimester: third trimester Qualified Code(s): O24.414 - Gestational diabetes mellitus in , insulin controlled Additional A&P Information Thank you for this consultation.Medicine will sign off .Please call us with questions. Attestations Medical Necessity Statement*: Patient needs to be in hospital for of post C.Section care Coding Level of Care Code Acute Channel Process Supervisor for [facility] Fwd Diagnoses Decreased urine output R34 Acute kidney injury N17.9 Hypokalemia E87.6 Transaminitis R74.01 Slurred speech R47.81 Maternal care for unspecified type scar from previous delivery O34.211 Previous scar type: low transverse COVID-19 affecting childbirth O98.52; U07.1 Diabetes in O24.414 Diabetes in type: gestational Gestational diabetes mellitus control: insulin-controlled Trimester: third trimester
[2020-04-28] MEDS: sodium chloride 0.9% 1,000 ML 100 ML IV ×2 (11:09→20:55)
--- NOTE | 2020-04-28 12:52 | P.PN_ITS ---
Subjective Subjective: Interval history: Patient was seen at 07:45 this morning in the ICU. Reports hurting more. Denies nausea this morning. Denies shortness of breath. Denies chest pain. Vitals/I&O/Wt Last Vital Signs Temp 98.1 F 04/28/20 08:00 Pulse 102 H 04/28/20 10:10 Resp 14 04/28/20 10:10 BP 118/69 04/28/20 10:10 Pulse Ox 97 04/28/20 10:10 04/27/20 04/28/20 04/28/20 22:59 06:59 14:59 Intake Total 1050 / 3079.000 1010 / 4089.000 1292.5 / 1292.5 Output Total 66 / 426 1710 / 2136 900 / 900 Balance 984 / 2653.000 -700 / 1953.000 392.5 / 392.5 Weight last 48 hrs Weight 149 lb Physical Exam Const: COMMON NORMALS: no acute distress, average body habitus, alert and well nourished GENERAL APPEARANCE: well developed ORIENTATION/CONSCIOUSNESS: Yes oriented to person, Yes oriented to place and Yes oriented to time Resp: COMMON NORMALS: normal respiratory effort and clear to auscultation bilaterally AUSCULTATION: clear to auscultation bilaterally Cardio: COMMON NORMALS: regular rate, regular rhythm, No gallops present (Cardio), No murmurs present (Cardio) and No rub (Cardio) RATE: regular rate RHYTHM: regular rhythm PERIPHERAL PULSES: posterior tibial pulses present GI: COMMON NORMALS: Soft to palpation, No hepatosplenomegaly present and no masses (Except for uterus) AUSCULTATION: Yes normoactive bowel sounds PALPATION: Yes Soft to palpation, Yes Tenderness to palpation present (GI) (Lower abdomen), Yes No hepatosplenomegaly present and No Hernia present : EXTERNAL FEMALE EXAM: No Hernia present Neuro: SENSORIUM/ORIENTATION: Yes alert, Yes oriented to person, Yes oriented to place and Yes oriented to time SPEECH: abnormal speech Details: slurred Psych: COMMON NORMALS: normal affect MOOD & AFFECT: Yes euthymic mood Urinary Catheter Management^: Figueroa: Cath Placed During This Visit: yes Urinary Catheter Date of Insertion: 04/27/20 Urinary Catheter Time of Insertion: 03:20 Data : 04/28/20 04:25 04/28/20 04:25 Micro: Microbiology 04/27/20 02:00 Urine Culture - Preliminary Urine Catheterized A&P Assessment and plan (1) Maternal care for unspecified type scar from previous delivery: Postopearative day 1, status post repeat section. Pain had initially been well controlled with Duramorph. Now hurting more as the Duramorph has worn off. Plan to start on oral pain medication. Patient had nausea and vomiting after surgery and was kept n.p.o. due to repetitive episodes of vomiting. She has not been nauseated this morning and will be started on a clear liquid diet. Status: Acute Qualifiers: Previous scar type: low transverse Qualified Code(s): O34.211 - Maternal care for low transverse scar from previous delivery (2) labor: Status: Acute Qualifiers: labor trimester: third trimester labor delivery status: with delivery in third trimester Fetus number: single or unspecified fetus Qualified Code(s): O60.14X0 - labor third trimester with delivery third trimester, not applicable or unspecified Additional A&P Information Patient has had multiple electrolyte and laboratory abnormalities, oliguria with probable acute kidney injury based upon increased creatinine. However, all of these abnormalities were present on initial lab work on arrival at the hospital. Patient and her partner had reported that she was admitted last week to [facility] with kidney failure . She was initially treated with IV hydration assuming this was possible dehydration related. However, urinary output did not increase significantly with this and she remained oliguric. Patient was also noted to have slurred speech. Hospitalist was consulted yesterday and took over management of these problems. During the night, patient had been transferred to the ICU. This morning, urine output had improved; however, she had received Lasix during the night. Creatinine has fluctuated up and down since admission, but is now down to 1.1 which is the lowest it has been during this hospitalization. Due to her problems being present prior to admission, records from [facility] were requested. She was noted to have a elevated creatinine up to 1.7 on 04/15 on their records. When I initially saw her this morning, she was still in the ICU. She has now been transferred back to the floor. Nurses are reporting that she is still having slurred speech, but is understandable this morning. However, she is having motor control issues. If this does not improve, she may need to be seen by neurology. Recommend continued management for these problems by hospitalist service. Attestations Medical Necessity Statement*: Patient delivered by on 04/27/2020 with multiple problems present. Coding Level of Care Code Acute Electrical Machine Builder for Chg Fwd Diagnoses Maternal care for unspecified type scar from previous delivery O34.211 Previous scar type: low transverse labor O60.14X0 labor trimester: third trimester labor delivery status: with delivery in third trimester Fetus number: single or unspecified fetus
--- NOTE | 2020-04-28 13:23 | P.CONIM_ITS ---
Providers/Reason for Consult Consulting Physican/Specialty*: Vladislav Martinez MD, psychiatry. Reason for Consult*: Altered mental status. Attending Physician: Israel Haywood MD Primary Care Provider: DOCTOR NOT ON STAFF Psych Consult HPI History of Present Illness Shana Mayberry is a 29 year old female who presented to labor and delivery on 04/27/2020 with a 05/21/2020 due date in active labor. The baby was delivered by section a few hours later. After delivery concerns were raised by her significant other and staff that she was not behaving normally she began slurring her speech and not answering questions with the same clarity she did prior to the surgery. Consultations with neurology did not yield any conclusion as to the cause of the change. Psychiatric consult was requested to further explore other possibilities for her behavior. Shana presented with her boyfriend and nurse in the room reporting that she has been with her boyfriend for about a year and a half. She reports that she has one 5-year-old daughter and that in the last 24 hours she delivered her second daughter. She reports that earlier today she started having her head hurt and her stomach was hurting and some connection with the incision line. She reports that this was her second . She denies ever experiencing these symptoms before. She denies any history of psychiatric evaluation, treatment or medication management at any time in her life. She denies smoking cigarettes, drinking alcohol smoking marijuana or use of any other illicit drugs, no rehabs or DUIs reported. She reports that she lives in an apartment with her boyfriend's children and her older daughter. Her boyfriend shared her recent challenges which included being positive for Covid 19 and spending about 2 of the previous 3 weeks in the [facility] and having some kidney abnormalities as a sequela of the Covid. He reports that he is never seen her in this kind of pain. He did express concern about the fact that she had expressed concern that the baby was going to fall as she was holding the baby earlier. She denies any nato feelings of depression or psychosis. Denies thoughts that she wants to harm the baby per se however we discussed the counter strange moments she had with the baby and thoughts of the baby was going to fall. We discussed the risk benefits and alternatives of considering an SSRI and she understood and agreed to proceed as is documented in this note. Psychiatric history: As above. Substance abuse history: As above. Family history: She denies any mental health or addiction issues in her family and denies any suicide attempts or completions. She denies ever having any suicide attempts. Developmental history: She reports that she was the product of a normal and she learned to walk and talk and met her developmental milestones on time. She reports that when she went to school she did not require speech therapy, learning support, emotional support or special education classes. Psychosocial history: She reports her parents were together when she was born and she has an older sister that is a product of the same relationship. She denies either of her parents having any other children. She reports her childhood was good and denied any emotional, physical or sexual abuse. Additionally she and her significant other denied any major traumatic events in her life. She did graduate from high school and endorses being a heterosexual with her longest relationship being about 8 years. She did 1 time but is not officially , she has a 5-year-old daughter, she is never been in the and she denies any confucianism belief system. She reports her longest employment is at the [employer] she reports that she is worked for 6 years in that capacity. She currently lives in an apartment with her significant other her children and his children. Legal history: She has been in detention 2 times the longest time was approximately 2 months. Medical history: Sees been positive for COVID-19, she had her gallbladder removed, she thinks he was about 13 when she started her menses, she endorses that both daughters were born to section. Meds Current Medications: Current Medications Generic Name Dose Route Start Last Admin Trade Name Freq PRN Reason Stop Dose Admin Hydrocodone Bitart /Acetaminophen 1 - 2 tab 04/27/20 07:02 04/28/20 18:54 Kellogg 5-325 Mg PO 1 tab Q4H PRN Administration MODERATE TO SEVER E PAIN Docusate Sodium 100 mg 04/27/20 09:00 04/28/20 18:56 Colace PO 100 mg BID ALEXIA Administration Sodium Chloride 1,000 mls @ 100 m ls/hr 04/28/20 11:15 04/28/20 20:55 Sodium Chloride 0.9% IV 100 mls/hr .Q10H ALEXIA Administration Lanolin 1 applic 04/27/20 07:02 04/28/20 08:03 Lanolin Oint TOPICAL 1 applic PRN PRN Administration breast care Ondansetron HCl 4 mg 04/27/20 07:02 04/27/20 16:39 Zofran IVP 4 mg Q4H PRN Administration NAUSEA AND VOMITI NG Multivit/ Folic Acid/Iron 1 cap 04/27/20 08:00 04/28/20 08:00 -U PO Not Given BREAKFAST ALEXIA PFSH NPU PFSH: Medical History Migraine headache Surgical History S/P laparoscopic cholecystectomy (~10/2019) Was at the time. S/P primary low transverse (08/03/14) Performed by Dr. Lopez at [facility] in [place], [place]. Confirmed LTCS with 2 layer closure. Family History Denies family history of Diabetes Anesthesia complication Bleeding disorder Hypertension Stroke Social History Smoking and tobacco status: former smoker Quit status (tobacco): has quit using tobacco Year quit tobacco: 04/2019 Former quit date comment: Was smoking 1 PPD until switched to vaping in 2017. Quit in 04/2019. Smoking risk assessment/counseling performed?: Yes Alcohol intake: current Alcohol intake frequency: holidays/special occasions only Alcohol use comment: Denies alcohol during Substance/Drug Use: never Female Reproductive History: : 3 Para: 1 Spontaneous abortions: No Mental Status Exam MSE Comments: This is an overweight white female in a hospital gown with limited grooming and eye contact. No abnormal movements except for psychomotor retardation intermixed with agitation around the pain she reports. Cooperative with exam in mild to moderate distress. Speech was decreased rate and volume and with significant dysarthria. Mood described as okay and happy at times affect was subdued. Thought process organized. Thought content: Patient denied suicidal or homicidal ideation, there were no delusions reported or noted, she denied any auditory or visual hallucinations. Attention and concentration were intact and memory appeared reliable but none were formally tested. She is alert and oriented x3. Insight and judgment are limited, impulse control is fair. Vitals/I&O/Wt Last Vital Signs Temp 97.7 F 04/28/20 21:00 Pulse 104 H 04/28/20 21:00 Resp 16 04/28/20 21:00 BP 99/60 04/28/20 21:00 Pulse Ox 99 04/28/20 21:00 04/28/20 04/28/20 04/28/20 06:59 14:59 22:59 Intake Total 1010 / 4089.000 1330.5 / 1330.5 1154.667 / 2485.167 Output Total 1710 / 2136 900 / 900 200 / 1100 Balance -700 / 1953.000 430.5 / 430.5 954.667 / 1385.167 Weight last 48 hrs Weight 67.585 kg Physical Exam Urinary Catheter Management^: Figueroa: Cath Placed During This Visit: yes Urinary Catheter Date of Insertion: 04/27/20 Urinary Catheter Time of Insertion: 03:20 Data NPU Micro: Micro: Microbiology 04/27/20 02:00 Urine Culture - Pr eliminary Urine Catheterize d Microbiology 04/27/20 02:00 Urine Catheterized Urine Culture - Preliminary A&P Assessment and plan (1) Mental status alteration: Status: Acute Qualifiers: Altered mental status type: unspecified Qualified Code(s): R41.82 - Altered mental status, unspecified (2) Slurred speech: Status: Acute (3) Acute kidney injury: Status: Acute (4) Decreased urine output: Status: Acute (5) Hypokalemia: Status: Acute (6) Transaminitis: Status: Acute (7) Maternal care for unspecified type scar from previous delivery: Status: Acute Qualifiers: Previous scar type: low transverse Qualified Code(s): O34.211 - Maternal care for low transverse scar from previous delivery (8) COVID-19 affecting childbirth: Status: Acute (9) labor: Status: Acute Qualifiers: labor trimester: third trimester labor delivery status: with delivery in third trimester Fetus number: single or unspecified fetus Qualified Code(s): O60.14X0 - labor third trimester with delivery third trimester, not applicable or unspecified (10) Diabetes in : Status: Acute Qualifiers: Diabetes in type: gestational Gestational diabetes mellitus control: insulin-controlled Trimester: third trimester Qualified Code(s): O24.414 - Gestational diabetes mellitus in , insulin controlled Additional A&P Information This is a 29-year-old white female about a day who presents with some mental status changes with slurred speech and no physiologic explanation for her presentation with some concern for depression and/or psychosis open to a trial of medication. 1. Continue current medication. Except: Initiate Prozac 20 mg p.o. every morning. 2. Encourage referral to mental health follow-up and additional support that will be given to any mother who may be struggling with depression or psychosis. 3. Ensure that the couple/family have access to information about resources that are available for these type of circumstances so they are fully informed about what to look for and to watch for. 4. We will continue to monitor for safety for discharge. Attestations U Medical Necessity Statement*: Please refer to primary team note for current medical necessity. At this time starting an SSRI would be a reasonable approach as long as there is sufficient follow-up and there does not appear to be a need for inpatient hospitalization at this point. Coding Level of Care Code Acute Barrel Rifler Broach for g Fwd Diagnoses Mental status alteration R41.82 Altered mental status type: unspecified Slurred speech R47.81 Acute kidney injury N17.9 Decreased urine output R34 Hypokalemia E87.6 Transaminitis R74.01 Maternal care for unspecified type scar from previous delivery O34.211 Previous scar type: low transverse COVID-19 affecting childbirth O98.52; U07.1 labor O60.14X0 labor trimester: third trimester labor delivery status: with delivery in third trimester Fetus number: single or unspecified fetus Diabetes in O24.414 Diabetes in type: gestational Gestational diabetes mellitus control: insulin-controlled Trimester: third trimester
--- NOTE | 2020-04-28 17:59 | P.PN_ITS ---
Subjective Subjective: Interval history: Called by nurses due to patient having more difficulty with speaking drawing up of her extremities. Per the nurse patient is having difficulty directing her arms to grasp things. The nurses state that she has times where she is difficult to get to respond. Patient indicates that she is having pain by pointing to her abdomen initially and then pointing to her head and when asked further she indicates that she has a headache. The headache is worse with lying down. She indicated that her abdominal pain is worse with deep breathing. She also has had some nausea at times. Vitals/I&O/Wt Last Vital Signs Temp 98.1 F 04/28/20 08:00 Pulse 102 H 04/28/20 10:10 Resp 14 04/28/20 10:10 BP 118/69 04/28/20 10:10 Pulse Ox 97 04/28/20 10:10 04/28/20 04/28/20 04/28/20 06:59 14:59 22:59 Intake Total 1010 / 4089.000 1292.5 / 1292.5 Output Total 1710 / 2136 900 / 900 Balance -700 / 1953.000 392.5 / 392.5 Weight last 48 hrs Weight 149 lb Physical Exam Const: COMMON NORMALS: no acute distress, average body habitus, alert and well nourished GENERAL APPEARANCE: well developed ORIENTATION/CONSCIOUSNESS: Yes oriented to person, Yes oriented to place and Yes oriented to time Resp: COMMON NORMALS: normal respiratory effort and clear to auscultation bilaterally AUSCULTATION: clear to auscultation bilaterally Cardio: COMMON NORMALS: regular rate, regular rhythm, No gallops present (Cardio), No murmurs present (Cardio) and No rub (Cardio) RATE: regular rate RHYTHM: regular rhythm GI: COMMON NORMALS: Soft to palpation, No hepatosplenomegaly present and no masses (Except for uterus.) INSPECTION: Yes incision (Well approximated with Steri-Strips present.) AUSCULTATION: Yes normoactive bowel sounds PALPATION: Yes Soft to palpation, Yes No hepatosplenomegaly present and No Hernia present : EXTERNAL FEMALE EXAM: No Hernia present Extremity: COMMON NORMALS: no calf tenderness NARRATIVE EXTREMITY EXAM: 1+ edema. Neuro: COMMON NORMALS: CN's II-XII intact bilaterally and moves all extremities SENSORIUM/ORIENTATION: Yes alert, Yes oriented to person, Yes oriented to place and Yes oriented to time SPEECH: abnormal speech (Slow speech. Does not want to talk and mainly points at things.) Details: slurred (Slurring of the speech noted.) MOTOR EXAM: 5/5 motor strength present throughout and Motor abnormalites present (Ataxic type movements of the arms when attempting to grasp things.) Psych: COMMON NORMALS: normal affect MOOD & AFFECT: Yes euthymic mood Skin: COMMON NORMALS: no rashes or lesions noted GENERAL SKIN EXAM: no rashes or lesions noted Urinary Catheter Management^: Figueroa: Cath Placed During This Visit: yes Urinary Catheter Date of Insertion: 04/27/20 Urinary Catheter Time of Insertion: 03:20 Data : 04/28/20 04:25 04/28/20 04:25 Micro: Microbiology 04/27/20 02:00 Urine Culture - Preliminary Urine Catheterized A&P Assessment and plan (1) Mental status alteration: Patient not wanting to verbalize and mainly pointing at things. If forced to speak, speaks very slowly with slurring of words and says only 1-2 words at a time. Patient is preferring to lay on her side somewhat curled up. She can follow commands and is oriented to person place and time. She can name the her normal doctor, her partner, and her children. For the nurses evaluation, they feel that her symptoms have worsened through the day. She is also reporting headache which may or may not be related to this. She has had a normal head CT last night. Dr. Haywood who is evaluated her in the ICU this morning and also this afternoon does not believe this is a medical problem at this time. He is suggesting possibility of psychiatric problems and was recommending a psychiatric evaluation. Because of the normal CT, he was considering an MRI of the brain to evaluate for other potential neurologic issues. Currently we do not have an in-house psychiatrist, but telepsychiatry is avai lable and has been requested. Also neurology is not currently available in house. If further neurologic evaluation is needed, then transfer out of the facility may be necessary. This was discussed with the patient's partner who is currently with her. After one of her drawing up spells, her partner had reported that she did act like she was in pain prior to it occurring and questions were being raised could this be pain related. She has not taken any oral pain medication since coming up from the ICU. Prior to that she had had Duramorph which would have been taking care of her pain but that at this point it will have worn off. I am currently holding on pain medication until psych evaluation has been performed. She has [place] ordered for pain. Status: Acute Qualifiers: Altered mental status type: unspecified Qualified Code(s): R41.82 - Altered mental status, unspecified (2) Decreased urine output: Patient has been treated with Lasix through the night with a significant increase in urine production as a result. Since returning to the floor at 11:40, her urine outputs were 38 ml, 28 ml, 60 ml, and 80 ml at 2-hour increments since that time. Urine output is increasing on its own now. Status: Acute Attestations Medical Necessity Statement*: Patient is status post repeat section. Coding Level of Care Code Acute Laser Beam Color Scanner Operator for Karen Fwd Exam Comprehensive Diagnoses Mental status alteration R41.82 Altered mental status type: unspecified Decreased urine output R34
[2020-04-29] VITALS (10 sets, daily range): BP systolic 98–115; BP diastolic 57–76; PULSE 87–111; RESP 16–18; TEMP 36.4–36.7; O2SAT 96–98
[2020-04-29] MEDS: HYDROcodone-acetaminophen 5-325 mg Tablet PO ×4 (00:42→14:06)
[2020-04-29 04:35] LABS: Basophils % 0.1 %; Eosinophils # 0.1 10^3/uL (0.0-0.8); Eosinophils % 0.7 %; Hematocrit 30.3 % (37.0-47.0); Hemoglobin 9.8 g/dL (11.5-15.3); Lymphocytes # 2.4 10^3/uL (0.8-4.8); Lymphocytes % 27.5 %; Mean Corpuscular HGB Conc 32.3 g/dL (30.0-36.0); Mean Corpuscular Hemoglobin 29.9 pg (28.0-34.0); Mean Corpuscular Volume 92.4 fL (81-99); Mean Platelet Volume 11.6 fL (7.4-10.4); Monocytes # 0.6 10^3/uL (0.2-0.9); Monocytes % 6.4 %; Neutrophils # 5.66 10^3/uL (1.8-7.7); Neutrophils % 64.5 %; Nucleated Red Blood Cells % 0.2 %; Platelet Count 163 10^3/cmm (130-400); Red Blood Count 3.28 10^6/uL (4.1-5.3); Red Cell Distribution Width 14.9 % (12.1-15.1); White Blood Count 8.8 10^3/uL (4.0-10.0)
[2020-04-29 04:59] LABS: Alanine Aminotransferase 31 U/L (0-33); Alkaline Phosphatase 251 IU/L (35-105); Anion Gap 14.3 (5-19); Aspartate Amino Transferase 46 U/L (0-32); Blood Urea Nitrogen 5 mg/dL (6-20); Calcium 7.3 mg/dL (8.5-10.5); Carbon Dioxide 22 mmol/L (22-29); Chloride 111 mmol/L (98-107); Globulin 2.4 g/dL (1.3-4.6); Glucose 63 mg/dL (65-115); Osmolality Calculated 293 mOsm/kg (285-295); Potassium 3.3 mmol/L (3.5-5.1); Sodium 144 mmol/L (136-145); Total Bilirubin 0.5 mg/dL (0.15-1.2); Total Protein 4.4 g/dL (6.6-8.7)
[2020-04-29] MEDS: sodium chloride 0.9% 1,000 ML 100 ML IV (07:23)
[2020-04-29] MEDS: fluoxetine 20 mg Capsule PO (09:04)
[2020-04-29] MEDS: potassium chloride ER 10 mEq Tablet 20 MEQ PO ×2 (09:05→19:54)
--- NOTE | 2020-04-29 14:27 | PC.NURSE ---
administrative services coordinator at patient bedside. Stated patient answered questions appropriately, and declined to go to a visit for [facility] or to have a nurse come to her house. Patient stated that she has lots of assistance at home with her family and her boyfriend's family. Patient reported she does have everything she needs at home to care for baby. Patient reported she does not have any difficulties speaking.
[2020-04-29 14:37] LABS: Osmolality Urine 413 mOsm/kg (50-1200)
--- NOTE | 2020-04-29 14:51 | PC.NURSE ---
Patient assisted to ambulate. Patient sat at bedside and stated she felt ok, denying any dizziness. Patient then stood at bedside and she she still felt ok. Once patient took two steps she kept trying to reach out to steady herself on whatever was nearby and stated she feels dizzy. Patient assisted back to bed without further issue. Patient sitting on the side of the bed and stated she still feels dizzy. Patient then laid down in bed to rest.
--- NOTE | 2020-04-29 15:16 | PC.NURSE ---
Patient hit call light and requested to ambulate. Patient stood up and then sat back down after feeling dizzy. About 30 seconds went by and patient stood up and then walked about four steps away from bed and back this time, stating she still feels dizzy while up. Patient seemed to do a little better than previous ambulation attempt, seeming a little more sure-footed than before. Patient assisted back to bed without further complaints.
--- NOTE | 2020-04-29 16:25 | PC.NURSE ---
human services supervisor at patient bedside at this time.
--- NOTE | 2020-04-29 16:31 | PC.NURSE ---
Aury from family welfare social work professor spoke with patient. Patient agreed to an appointment at [facility]. A packet of paperwork was provided and put on the front of the patient's chart to be sent home with the patient for her to fill out and either mail in or drop off at [facility].
--- NOTE | 2020-04-29 17:54 | PC.NURSE ---
Dr. Lopez discussed with patient about her not eating dinner. Orders received from Dr. Lopez to see if there was something that sounded good to the patient that the cafeteria could provide. Offered patient something from the cafeteria, if anything sounded good, and the patient replied no. Asked patient if there was anything she would eat, and patient replied no.
--- NOTE | 2020-04-29 17:58 | P.PN_ITS ---
Subjective Subjective: Interval history: Patient reports that she has been having pain in her lower abdomen. However, she states the pain medications have been helping. She reports lightheadedness and dizziness with sitting up and getting up to the chair. She denied shortness of breath or chest pains. She reports passing flatus. She indicated that she has not been eating the regular food because she does not like it. Vitals/I&O/Wt Last Vital Signs Temp 98.0 F 04/29/20 16:41 Pulse 94 04/29/20 16:41 Resp 16 04/29/20 16:41 BP 112/74 04/29/20 16:41 Pulse Ox 96 04/29/20 10:55 04/29/20 04/29/20 04/29/20 06:59 14:59 22:59 Intake Total 1000 / 3485.167 253.333 / 253.333 Output Total 755 / 1855 1250 / 1250 Balance 245 / 1630.167 -996.667 / -996.667 Physical Exam Const: COMMON NORMALS: no acute distress, average body habitus, alert and well nourished GENERAL APPEARANCE: well developed ORIENTATION/CONSCIOUSNESS: Yes oriented to person, Yes oriented to place and Yes oriented to time Resp: COMMON NORMALS: normal respiratory effort and clear to auscultation bilaterally AUSCULTATION: clear to auscultation bilaterally Cardio: COMMON NORMALS: regular rate, regular rhythm, No gallops present (Cardio) and No rub (Cardio) RATE: regular rate RHYTHM: regular rhythm GI: COMMON NORMALS: Soft to palpation, No hepatosplenomegaly present and no masses (Except for uterus.) INSPECTION: Yes incision (Dry and int act with Steri-Strips present. Dried blood present.) AUSCULTATION: Yes normoactive bowel sounds PALPATION: Yes Soft to palpation, Yes Tenderness to palpation present (GI) (Moderate tenderness lower abdomen.), Yes No hepatosplenomegaly present and No Hernia present : EXTERNAL FEMALE EXAM: No Hernia present Extremity: COMMON NORMALS: no calf tenderness NARRATIVE EXTREMITY EXAM: 2+ lower extremity edema bilaterally Neuro: SENSORIUM/ORIENTATION: Yes alert, Yes oriented to person, Yes oriented to place and Yes oriented to time Psych: COMMON NORMALS: cooperative and normal affect SPEECH: Yes slow, Yes soft and Yes Other speech symptoms (Mumbles) MOOD & AFFECT: Yes euthymic mood Urinary Catheter Management^: Figueroa: Cath Placed During This Visit: yes Urinary Catheter Date of Insertion: 04/27/20 Urinary Catheter Time of Insertion: 03:20 Data : 04/29/20 04:07 04/29/20 04:07 Micro: Microbiology 04/27/20 02:00 Urine Culture - Final Urine Catheterized A&P Assessment and plan (1) Maternal care for unspecified type scar from previous delivery: Postoperative day 2, status post repeat section. Patient reporting better pain control today and has been taking pain medications. She has been passing flatus. She has been taking some clear liquids. However, she refuses regular food. When I asked her about this, she reported that she did not like what she was getting. Discussed with patient the importance of eating. Patient has been asked what she wants to eat and offered to get her something else but she is stating she does not want anything at this time. Patient has only been minimally out of bed up to the chair and is reporting lightheaded and dizziness with this. Blood count has not significantly changed since her initial post delivery blood count. Heart rate has for the most part been in the 80s to 90s with occasionally up to the 100s. She is also not on medications that should be contributing to the lightheadedness or dizziness other than the pain medication. However, she was reporting the symptoms before taking much of the pain medication. We will need to continue to monitor this. Patient still has Figueroa catheter and since she has been unable to adequately ambulate. Discussed with her today that catheter will need to be coming out tomorrow. Status: Acute Qualifiers: Previous scar type: low transverse Qualified Code(s): O34.211 - Maternal care for low transverse scar from previous delivery (2) Acute kidney injury: Patient appeared to be in acute renal failure on admission to the hospital. She had very low urine output following surgery. However, as of yesterday evening, urine output increased on its own and has continued to have good output today. Lab work this morning shows the creatinine down to 1.0. Status: Acute (3) Hypokalemia: Patient is still mildly hypokalemic on labs this morning. She was prescribed oral potassium this morning and for this evening. However, should instead of taking the 20 mEq, she only took 1 10 mEq tablet and refused to take the second tablet this morning. She is due for her second dose of 20 mEq this evening. Will recheck potassium tomorrow morning. Status: Acute (4) Mental status alteration: Patient was evaluated yesterday by psychiatry for possible altered mental status. On evaluation by psychiatry, it is felt that she may have some degree of depression and/or psychosis. She has been started on Prozac this morning. This evening, she is more responsive to questions and is answering questions appropriately with more complete sentences. She is still talking very softly and mumbling her words. She is following commands appropriately. Status: Acute Qualifiers: Altered mental status type: unspecified Qualified Code(s): R41.82 - Altered mental status, unspecified Attestations Medical Necessity Statement*: Patient is still eating very poorly and is lightheaded and dizzy and not ambulating at this time. Coding Level of Care Code Acute Mattress Specialist for Molly Miles Diagnoses Maternal care for unspecified type scar from previous delivery O34.211 Previous scar type: low transverse Acute kidney injury N17.9 Hypokalemia E87.6 Mental status alteration R41.82 Altered mental status type: unspecified
[2020-04-29] MEDS: docusate sodium 100 mg Capsule PO (19:55)
--- NOTE | 2020-04-29 20:00 | PC.NURSE ---
This Rn to bedside to assess patient, patient sat up at side of bed independently. She took her medications, stated that her throat was sore. This RN discussed the importance of drinking fluid, that since she was no longer receiving IV fluid she would need to drink to prevent dehydration. This nurse brought a variety of drinks and also apple sauce to the bedside for patient to choose from.
--- NOTE | 2020-04-29 21:15 | PC.NURSE ---
This RN to bedside to round on patient, noted that patient had not drank. Asked patient if she would drink, patient shook her head no.
--- NOTE | 2020-04-30 01:30 | PC.NURSE ---
bedbath given, linens changed
[2020-04-30 04:30] VITALS: BP 116/72; PULSE 98; RESP 16; TEMP 36.8; O2SAT 96
[2020-04-30 05:13] LABS: Alanine Aminotransferase 30 U/L (0-33); Albumin Level 1.7 g/dL (3.5-5.2); Alkaline Phosphatase 250 IU/L (35-105); Anion Gap 12.6 (5-19); Aspartate Amino Transferase 58 U/L (0-32); Blood Urea Nitrogen 4 mg/dL (6-20); Calcium 7.1 mg/dL (8.5-10.5); Carbon Dioxide 22 mmol/L (22-29); Chloride 113 mmol/L (98-107); Globulin 2.6 g/dL (1.3-4.6); Glomerular Filtration Rate 85.4 mL/min (90-130); Glucose 64 mg/dL (65-115); Osmolality Calculated 293 mOsm/kg (285-295); Potassium 3.6 mmol/L (3.5-5.1); Sodium 144 mmol/L (136-145); Total Bilirubin 0.4 mg/dL (0.15-1.2); Total Protein 4.3 g/dL (6.6-8.7)
[2020-04-30 05:14] LABS: Magnesium 1.4 mg/dL (1.7-2.3)
[2020-04-30] MEDS: acetaminophen 325 mg Tablet 650 MG PO (06:43)
--- NOTE | 2020-04-30 08:04 | PC.NURSE ---
Patient's boyfriend discussed that the patient's contacts fell out a while ago, and she does not have her glasses. Patient then discussed with this nurse that she could see kind of ok while not wearing her glasses. Patient's boyfriend stated she's nearly blind when not wearing her glasses. Patient requested her boyfriend get her glasses out of the car. Discussed this request with route service manager of the department who stated patient's boyfriend could have a 1 time trip to the car to get the requested glasses for the patient. This nurse discussed this with the patient and boyfriend and they acknowledged understanding.
[2020-04-30 10:04] LABS: Basophils % 0.3 %; Eosinophils # 0.1 10^3/uL (0.0-0.8); Eosinophils % 1.8 %; Hematocrit 29.3 % (37.0-47.0); Hemoglobin 9.1 g/dL (11.5-15.3); Lymphocytes # 2.2 10^3/uL (0.8-4.8); Lymphocytes % 33.4 %; Mean Corpuscular HGB Conc 31.1 g/dL (30.0-36.0); Mean Corpuscular Hemoglobin 29.6 pg (28.0-34.0); Mean Corpuscular Volume 95.4 fL (81-99); Mean Platelet Volume 12.1 fL (7.4-10.4); Monocytes # 0.3 10^3/uL (0.2-0.9); Neutrophils # 3.87 10^3/uL (1.8-7.7); Neutrophils % 58.3 %; Nucleated Red Blood Cells % 0.3 %; Platelet Count 189 10^3/cmm (130-400); Red Blood Count 3.07 10^6/uL (4.1-5.3); Red Cell Distribution Width 15.1 % (12.1-15.1); White Blood Count 6.6 10^3/uL (4.0-10.0)
[2020-04-30 10:12] VITALS: BP 130/88; PULSE 108; RESP 18; TEMP 36.9; O2SAT 98
--- NOTE | 2020-04-30 10:43 | PC.NURSE ---
linen change patient was sitting in chair and nursing home manager changed bed.
--- NOTE | 2020-04-30 10:56 | PC.NURSE ---
Case Management called to verify that Shana did not want home health to visit her at home. I went in Shana's room and asked if she was still refusing home health to come to her house or if she would like a home health nurse to visit her. Shana stated I am fine with a home health nurse coming if they want to . Her significant other also agreed. Case management was notified that she agreed to have a home health nurse. Case management said they would come up to visit with her for more information.
[2020-04-30] MEDS: fluoxetine 20 mg Capsule PO (11:05)
[2020-04-30] MEDS: prenatal vitamin Capsule 1 CAP PO (11:05)
--- NOTE | 2020-04-30 11:24 | PC.NURSE ---
Entered the room to find the patient had thrown up into the emesis basin she had at her bedside. Patient's boyfriend reported she felt sick at the smell of the food she was brought for lunch. Helped clean patient up, and then she had this screenplay writer remove her lunch tray but kept the jello to eat it.
--- NOTE | 2020-04-30 12:19 | PC.NURSE ---
This typewriter operator automatic entered the patient room and found the patient had gotten up to the bathroom without assistance. This typewriter operator automatic stayed in the room to assess what the patient's ambulation. Patient did well at first, but about the third step out of the bathroom the patient started to stumble. This typewriter operator automatic then helped steady the patient. This typewriter operator automatic then assisted the patient to ambulate the rest of the way to bed. Patient denied this being her regular for ambulation, that she normally doesn't have any struggle with ambulating.
--- NOTE | 2020-04-30 12:38 | PC.NURSE ---
Entered the room due to the patient coughing. Patient had thrown up before this content writer entered the room. Asked patient what happened, and she stated she just got choked up. Asked patient if she had sinus drainage and patient reported she did. Asked patient if she had been this way for a while, before having the baby and coming to the hospital. Patient and her boyfriend agreed she has been like this for a while before arrival. Asked patient if she has been taking anything for her drainage and she said no. When this content writer asked the patient why she hadn't been taking any medication to see if it improved she replied that the doctor hadn't prescribed her anything to take while she has been here. Asked patient if she was taking anything prior to coming to the hospital and she said yes she was, and it made it better. When this content writer asked the patient the name of the medication she was taking prior to arrival and the patient was unsure of the medication.
--- NOTE | 2020-04-30 14:19 | PC.NURSE ---
Notified physical therapy of physician's order put in for PT consult and evaluation for a walker.
--- NOTE | 2020-04-30 14:25 | PC.NURSE ---
Asked patient if she has access to a walker if the physical therapist states she does need to use a walker to ambulate. Patient stated she did have a walker. Patient questioned on if her house is set up for her to be able to use a walker. Patient and boyfriend reported she would be able to use a walker in her house and be able to do normal activities.
--- NOTE | 2020-04-30 14:37 | PC.NURSE ---
PHysical therapy at patient bedside.
--- NOTE | 2020-04-30 14:46 | PC.NURSE ---
Patient ambulating in [place] with physical therapy and using a walker.
[2020-04-30 16:20] VITALS: BP 117/75; PULSE 88; RESP 16; TEMP 37.1; O2SAT 97
--- NOTE | 2020-04-30 17:32 | PM.OBGYDC ---
Discharge Providers NETWORK OPERATIONS PROJECT MANAGER Date of Admission: 04/27/20 02:30 Date of Discharge: 04/30/20 Attending Provider at Admission: Yao Lopez MD Attending Provider at Discharge: Israel Haywood MD Primary Care Provider: DOCTOR NOT ON STAFF Diagnoses at Discharge Discharge Diagnosis (1) Maternal care for unspecified type scar from previous delivery: Status: Acute Qualifiers: Previous scar type: low transverse Qualified Code(s): O34.211 - Maternal care for low transverse scar from previous delivery (2) Acute kidney injury: Status: Resolved (3) Hypokalemia: Status: Resolved (4) Mental status alteration: Status: Resolved Qualifiers: Altered mental status type: unspecified Qualified Code(s): R41.82 - Altered mental status, unspecified Reason for Visit Reason for Visit: Contractions Hospital Course Hospital Course Patient is a 29-year-old female, 3, para 1-0-1-1 with an LMP of 08/15/2019 and an EDC of 05/21/2020 based on LMP and consistent with an 11-week ultrasound, which placed her at 36-4/7 weeks gestation at the time of admission. Her care had been provided by Dr. Stallworth in [place], [place]. She had presented to labor and delivery on 04/27/2020 at 01:00 with complaint of contractions. She was found to be dottie regularly and was 70% effaced and 2 cm dilated. Fluid hydration was started. Approximately 1 hour later she had made further cervical change and was felt to be in true labor. Patient had had a prior section. was discussed with her and declined. As a result she was prepared for a repeat section. Her history was significant for having been diagnosed with Covid requiring hospitalization on 04/04/2020 and spent approximately 1 week at [facility] in [place], [place]. She reported having been admitted to the hospital again approximately 1 week ago due to kidney failure . She had been treated with IV fluids for suspected A repeat section was performed with the delivery of a viable female weighing 5 lbs 7 oz (2465 g) with a length of 19-1/2 inches and Apgars of 8 at 1 minute and 9 at 5 minutes. Thick meconium fluid was present. Following surgery, patient was noted on admission laboratory testing to have multiple electrolyte and laboratory abnormalities including hyponatremia. She was also diagnosed following the with oliguria with probable acute kidney injury based upon increased creatinine. All of these abnormalities were present on lab work performed on admission to the hospital. She was initially treated with IV hydration for suspected dehydration. She was started on potassium replacement. However, urine output did not increase significantly with this and she remained oliguric. She was also noted to be slurring her speech. Hospitalist was consulted and took over management of her electrolyte abnormalities and oliguria. Because of continued concerns, she was transferred to the ICU during the night. She had had a CT scan performed due to the slurring of her speech, which was negative. Postoperative day 1 After being transferred to the ICU, she was treated with Lasix and urine output initially improved. Creatinine had fluctuated up and down since admission and was down to a 1.1 by that morning. Records had been requested from [facility] and laboratory tests showed that she had a creatinine as high as 1.7 on 04/15. She was transferred back to the floor later that morning. She was still noted to be slurring her speech some but was able to be understood. She was following instructions. Urine output increased on its own by that evening without use of medication. By the evening, the nurses were reporting worsening difficulties with speaking and reported that she was drawing up her extremities at times. They were reporting that she was having difficulty directing her arms to grasp things. On her evaluation by myself at that time, she would respond by pointing to things in response to questions. If a verbal response was required she would speak in very soft voice with minimal words used. She was able to follow commands and is oriented to person, place, and time. She was reassessed by the hospitalist who felt that she did not have a medical cause for these problems and felt that her problems might be psychiatric related. As a result, psychiatry was consulted. A telepsychiatry visit was performed. The psychiatrist felt that she was dealing with some depression and/or psychosis and that during his evaluation she had become significantly more responsive. Psychiatrist had started her on fluoxetine. Postoperative day 2 She was reporting lower abdominal pain, but stating that her pain medications were helping. She was reporting lightheaded and dizziness with sitting up and getting up to the chair. She denied shortness of breath or chest pains. She was reporting passing flatus but had not been eating because she did not like what she was getting for food. She continued to have good urine output. Creatinine had decreased to 1.0 that morning. She was continued on potassium replacement and started on oral potassium as well. By that evening she was more responsive to questions and were answering questions appropriately with more complete sentences. She was still talking very softly and was mumbling her words. Postoperative day 3 Patient reports pain is been controlled. She reports random vomiting episodes, with questions raised by her partner whether this could be reflux related. She reports being weak and was requesting whether she could use a walker. She reports she has been urinating without difficulty. She reports having had loose bowels today. She reports bleeding has slowed. She denies shortness of breath or chest pains. She would like to go home today if possible. Physical exam: See below. Plan Patient is postoperative day 3, status post repeat section. Laboratory studies show a stable H&H. Potassium has returned to normal levels. Creatinine is down to 0.8. She has been tolerating a regular diet, but refuses to eat very much at a time. She has been able to ambulate, but is very slow and weak with this. Physical therapy evaluated her and did recommend a walker. On further questioning by the nurse, it was reported that they did have a walker at home already. If her weakness continues or if she has other neurologic type symptoms, I discussed with the patient and her partner that evaluation by a neurologist may be helpful. Patient is more talkative this evening. She was able to be easily understood when I first started talking with her this evening. However as the time progressed, her responses became shorter and softer and more difficult to hear. Discussed with patient that I would recommend that she follow-up with [facility]. She is being continued on fluoxetine. She is being discharged home. She has been instructed to follow-up with her primary OB and to contact them after leaving the hospital as to when they want to see her back. She is to follow-up in my office in approximately 2 weeks for an incision check. Information Peripartum Data: Infant Delivery Method: Section Physical Exam Const: COMMON NORMALS: no acute distress, average body habitus, alert and well nourished GENERAL APPEARANCE: well developed ORIENTATION/CONSCIOUSNESS: Yes oriented to person, Yes oriented to place and Yes oriented to time Resp: COMMON NORMALS: normal respiratory effort and clear to auscultation bilaterally AUSCULTATION: clear to auscultation bilaterally Cardio: COMMON NORMALS: regular rate, regular rhythm, No gallops present (Cardio) and No rub (Cardio) RATE: regular rate RHYTHM: regular rhythm GI: COMMON NORMALS: Soft to palpation, No hepatosplenomegaly present and no masses (except for uterus.) INSPECTION: Yes incision (Well approximated with Steri-Strips present.) AUSCULTATION: Yes normoactive bowel sounds PALPATION: Yes Soft to palpation, Yes Tenderness to palpation present (GI) (Tender in the lower abdomen), Yes No hepatosplenomegaly present and No Hernia present : EXTERNAL FEMALE EXAM: No Hernia present Extremity: COMMON NORMALS: no calf tenderness NARRATIVE EXTREMITY EXAM: 2+ lower extremity edema bilaterally Neuro: SENSORIUM/ORIENTATION: Yes alert, Yes oriented to person, Yes oriented to place and Yes oriented to time Psych: COMMON NORMALS: normal affect MOOD & AFFECT: Yes euthymic mood Urinary Catheter Management^: Figueroa: Cath Placed During This Visit: yes, but has since been removed by the nurse Reason for Continuing Indwelling Catheter: Decision to DC Catheter Urinary Catheter Date of Insertion: 04/27/20 Urinary Catheter Time of Insertion: 03:20 Date Urinary Catheter Removed: 04/30/20 Time Urinary Catheter Discontinued: 07:50 Discharge Data Data Completed and Pending: Completed Studies During Hospitalization Category Date Time Status CT head wo con* [id number] Stat Cat Scan 04/27/20 22:54 Completed US renal BI* [id number] Stat Ultrasound 04/27/20 13:18 Completed Pending at discharge Category Date Time Status CMP [Comprehensiv e Metabolic Panel] AM LABS Lab 05/01/20 04:00 Ordered Labs from last 24 hours 04/30/20 04/30/20 04/30/20 04:30 04:30 04:30 WBC 6.6 RBC 3.07 L Hgb 9.1 L Hct 29.3 L MCV 95.4 MCH 29.6 MCHC 31.1 RDW 15.1 Plt Count 189 MPV 12.1 H Neut % (Auto) 58.3 Lymph % (Auto) 33.4 [place] % (Auto) 5.0 Eos % (Auto) 1.8 Baso % (Auto) 0.3 Neut # (Auto) 3.87 Lymph # (Auto) 2.2 [place] # (Auto) 0.3 Eos # (Auto) 0.1 Baso # (Auto) 0.0 Nucleated RBC % (a uto) 0.3 Nucleated RBCs # 0.0 Sodium 144 Potassium 3.6 Chloride 113 H Carbon Dioxide 22 Anion Gap 12.6 BUN 4 L Creatinine 0.8 GFR Calculation 85.4 L Glucose 64 L Calculated Osmolal ity 293 Calcium 7.1 L Magnesium 1.4 L Total Bilirubin 0.4 AST 58 H ALT 30 Alkaline Phosphata se 250 H Total Protein 4.3 L Albumin 1.7 L Globulin 2.6 Vitals: Last Vital Signs Temp 98.5 F 04/30/20 10:12 Pulse 108 H 04/30/20 10:12 Resp 18 04/30/20 10:12 BP 130/88 04/30/20 10:12 Pulse Ox 98 04/30/20 10:12 Discharge Plan Discharge Patient Disposition: Home Condition: Stable Prescriptions: New fluoxetine 20 mg Capsule 20 mg PO DAILY Qty: 30 RF: 0 hydrocodone-acetaminophen 5-325 mg Tablet 1 - 2 tab PO Q6H PRN (Reason: Moderate To Severe Pain) Qty: 30 RF: 0 Discharge Orders: Discharge Order (Routine); Ordered 04/30/20 Ordered By: Yao Lopez Referrals: [facility] [Provider Group] (If you have any thoughts of harming yourself or anyone else please call [facility] at .) [facility] [Provider Group] (Please fill out application and return to [facility] in person or can return by mail. Once turned in the facility will call and arrange appointment. Please call them at [phone] with any questions. ) Yao Lopez MD [Physician] - 2 weeks (Postoperative check) Discharge Diet: Regular Discharge Activity: Limit activity as instructed Patient Instructions: Bleeding (DC), OB C, OB Discharge Report, OB Anesthesia Instructions, OB Food/Drug Interaction Guide, OB Home Care, OB Proud Parent Packet Activity Restrictions/Additional Instructions: Please call Aury Kaur, Director of Care Coordination at [phone] if you have any questions or concerns about how to fill out application for [facility] referral. Please remember it is important to complete this and turn in as soon as possible to ensure medication compliance after discharge from the hospital. Please contact your OB doctor to see when she wants to see you in the office after delivery Discharge Attestations NETWORK OPERATIONS PROJECT MANAGER Time Spent in Discharge Care*: greater than 30 min Coding Level of Care Code Acute Assembly Worker for g Fwd Exam Detailed Diagnoses Maternal care for unspecified type scar from previous delivery O34.211 Previous scar type: low transverse Acute kidney injury N17.9 Hypokalemia E87.6 Mental status alteration R41.82 Altered mental status type: unspecified
--- NOTE | 2020-04-30 18:40 | PM.NPN ---
Subjective NPU Subjective: Interval history: Shana presents today with her and their Víctor reporting continued improvement in Shana's presentation. She was actually fairly nonverbal today with mostly head shakes and head nods. She was however pleasant endorsing alejandro with the of her daughter and she, her significant other and I had a lengthy discussion about children and the joys of parenthood. We discussed them being cognizant of signs and symptoms of depression psychosis as they manage these next days to months with this and their other stressors. Otherwise they denied any additional issues and reported being ready for discharge. Mental Status Exam MSE Comments: This is an overweight white female in her street close with adequate dress, grooming and eye contact.. No abnormal movements. Cooperative with exam in no acute distress. Speech was mostly absent but with normal rate and volume and with limited dysarthria mood described as good, affect euthymic. Thought process organized. Thought content: Patient denied suicidal or homicidal ideation, there were no delusions reported or noted, she denied any auditory or visual hallucinations. Attention and concentration were intact and memory appeared reliable but none were formally tested. She is alert and oriented x3. Insight and judgment are limited, impulse control is fair. Vitals/I&O/Wt Last Vital Signs Temp 98.5 F 04/30/20 10:12 Pulse 108 H 04/30/20 10:12 Resp 18 04/30/20 10:12 BP 130/88 04/30/20 10:12 Pulse Ox 98 04/30/20 10:12 04/30/20 04/30/20 04/30/20 06:59 14:59 22:59 Output Total 450 / 2340 Balance -450 / -2086.667 Physical Exam Urinary Catheter Management^: Figueroa: Cath Placed During This Visit: yes, but has since been removed by the nurse Reason for Continuing Indwelling Catheter: Decision to DC Catheter Urinary Catheter Date of Insertion: 04/27/20 Urinary Catheter Time of Insertion: 03:20 Date Urinary Catheter Removed: 04/30/20 Time Urinary Catheter Discontinued: 07:50 Data NPU : 04/30/20 04:30 04/30/20 04:30 A&P Additional A&P Information (1) Mental status alteration: (2) Slurred speech: (3) Acute kidney injury: (4) Decreased urine output: (5) Hypokalemia: (6) Transaminitis: (7) Maternal care for unspecified type scar from previous delivery: (8) COVID-19 affecting childbirth: (9) labor: (10) Diabetes in : This is a 29-year-old white female about a day who presents with essential resolution of the mental status changes with slurred speech with no physiologic explanation for her presentation days earlier with some concern for depression and/or psychosis open to a trial of medication. 1. Continue current medication. 2. Encourage referral to mental health follow-up and additional support that will be given to any mother who may be struggling with depression or psychosis. 3. Ensure that the couple/family have access to information about resources that are available for these type of circumstances so they are fully informed about what to look for and to watch for. 4. No credible lethality so agree with discharge when deemed medically stable Attestations NPU Medical Necessity Statement*: N/A. Please see primary team note for medical necessity. However no need for inpatient psychiatric services at this time. Coding Level of Care Code Acute Cell Efficiency Supervisor for Molly Miles
[2020-04-30 19:41] VITALS: BP 122/76; PULSE 84; RESP 18; TEMP 36.8; O2SAT 97
--- NOTE | 2020-05-13 11:17 | PC.SOCIAL ---
Pt did not return call to follow up. Checked with Zenaida at [facility] and they have not heard from her either. Zenaida will try and have Swati reach out to her and if they are able to make contact will try to set up services.
== END 2020-04-30 19:55 | disposition home or self-care (01) | DRG 787 ==
LOC: OPOB 03:29 → OBGYN 03:29 → ICU 04-28 00:05 → OBGYN 04-28 11:22
PROVIDERS: Hospitalist; Internal Medicine; Admitting Provider Obstetrics & Gynecology; Visit Provider Internal Medicine
PROC: 10D00Z1 Extraction of Products of Conception, Low, Open Approach (ICD-10-PCS; CPT 59514; principal; 2020-04-27 04:45)
DX: O60.14X0 Preterm labor third trimester with preterm delivery third trimester, not applicable or unspecified (principal); N17.9 Acute kidney failure, unspecified; O34.211 Maternal care for low transverse scar from previous cesarean delivery; Z3A.36 36 weeks gestation of pregnancy; Z37.0 Single live birth; O24.424 Gestational diabetes mellitus in childbirth, insulin controlled; O77.0 Labor and delivery complicated by meconium in amniotic fluid; O75.89 Other specified complications of labor and delivery; E87.6 Hypokalemia; R47.81 Slurred speech; R34 Anuria and oliguria; R41.82 Altered mental status, unspecified; R74.01 Elevation of levels of liver transaminase levels; O99.345 Other mental disorders complicating the puerperium; F53.0 Postpartum depression; Z86.19 Personal history of other infectious and parasitic diseases
CPT/HCPCS: 12345; 36415; 36416; 36430; 59025; 59409; 70450; 76770; 80048; 80053; 80306; 81001; 82436; 82570; 82962; 83735; 83935; 84300; 84443; 85025; 86850; 86870; 86900; 87086; 90384; 96375; 97162; 97530; 99211; G0378; J0690; J1200; J1885; J1940; J2274; J2405; J2765; J3010; J3475; J3480; J3490; J7030

== ENCOUNTER 2020-05-20 08:27 | Outpatient (RCR) | payer OTHER, MEDICAID, SELFPAY | END 2020-05-26 23:59 | disposition home or self-care (01) | LOC: SR3 08:27 | PROVIDERS: PCP Family Medicine; Referring Provider Hospitalist; Visit Provider Hospitalist | DX: I69.393 Ataxia following cerebral infarction (principal); I69.328 Other speech and language deficits following cerebral infarction | CPT/HCPCS: 92507; 96105; 97110; 97161; 97166 ==

== ENCOUNTER 2020-05-27 06:00 | Outpatient (RCR) | payer OTHER, MEDICAID, SELFPAY | END 2020-06-26 23:59 | disposition home or self-care (01) | LOC: SR3 06:00 | PROVIDERS: PCP Family Medicine; Referring Provider Hospitalist; Visit Provider Hospitalist | DX: G11.9 Hereditary ataxia, unspecified (principal) | CPT/HCPCS: 97110; 97112 ==

== ENCOUNTER → 2020-06-09 00:01 | Outpatient (BNVA) | payer OTHER, MEDICAID, SELFPAY | PROVIDERS: PCP Family Medicine; Visit Provider Obstetrics & Gynecology | DX: Z30.9 Encounter for contraceptive management, unspecified (principal); Z12.4 Encounter for screening for malignant neoplasm of cervix; Z48.816 Encounter for surgical aftercare following surgery on the genitourinary system | CPT/HCPCS: 88175 ==

== ENCOUNTER → 2020-07-14 14:51 | Outpatient (BNVA) | payer MEDICAID, SELFPAY | PROVIDERS: PCP Family Medicine; Visit Provider Obstetrics & Gynecology | DX: Z01.812 Encounter for preprocedural laboratory examination (principal); R87.612 Low grade squamous intraepithelial lesion on cytologic smear of cervix (LGSIL) | CPT/HCPCS: 81025; 88305 ==

== ENCOUNTER → 2020-08-15 09:10 | Outpatient (BNVA) | payer MEDICAID, SELFPAY | PROVIDERS: PCP Family Medicine; Visit Provider Specialist | DX: I69.393 Ataxia following cerebral infarction (principal); G43.011 Migraine without aura, intractable, with status migrainosus; Z87.891 Personal history of nicotine dependence | CPT/HCPCS: 99205 ==

== ENCOUNTER 2020-08-21 13:09 | Emergency (ER) | payer MEDICAID, SELFPAY ==
[2020-08-21 13:15] VITALS: BP 112/73; PULSE 72; RESP 18; TEMP 36.4; O2SAT 99; BMI 25.6
[2020-08-21 13:24] VITALS: BP 103/78; PULSE 74; RESP 16; O2SAT 100
--- NOTE | 2020-08-21 13:25 | W.ED.GENADLT ---
HPI - General Adult General: Chief complaint: General Medical Stated complaint: neck pain, L arm tingling Time Seen by Provider: 08/21/20 13:22 Source: patient Mode of arrival: ambulatory Limitations: no limitations History of Present Illness: HPI narrative: 30-year-old female comes in today with complaints of left arm numbness and tingling along with neck pain. Patient had a stroke 4 months ago secondary to COVID-19 and recent delivery of infant. Patient appears well. Patient does have some weakness on the left extremity which is normal for her. Patient appears in no acute distress. Vital signs are stable. Patient appears in mild to no pain. Review of Systems General: Reports: 10 or more systems reviewed and unremarkable except in HPI and below Neuro: Reports: weakness in extremities and sensory changes PFSH ED PFSH: Medical History Cerebrovascular accident CVA at age 29, Migraine headache Surgical History S/P section (04/27/20) RLTCS. Performed by Dr. Lopez at [facility] S/P laparoscopic cholecystectomy (~10/2019) Was at the time. S/P primary low transverse (08/03/14) [place] [facility] [place] Confirmed LTCS with 2 layer closure. Family History Denies family history of Diabetes Anesthesia complication Bleeding disorder Hypertension Stroke Social History (Updated 08/21/20 @ 13:20 by Stew Veloz RN) Smoking and tobacco status: former smoker Quit status (tobacco): has quit using tobacco Year quit tobacco: 04/2019 Former quit date comment: Was smoking 1 PPD until switched to vaping in 2018. Quit in 04/2019. Alcohol intake: never Female Reproductive History: Date of last menstrual period: 07/24/20 Para: 1 Spontaneous abortions: No Physical Exam Const: COMMON NORMALS: no acute distress and patient oriented x3 GENERAL APPEARANCE: cooperative HENMT: COMMON NORMALS: normocephalic and Normal external nose present HEAD & SCALP: normal to inspection and normocephalic NOSE: Normal external nose present MOUTH: Normal oral and palatal mucosa present Eye: GENERAL EYE: appearance normal, both eyes and all related structures Neck/C-Spine: COMMON NORMALS: full ROM OTHER: Tenderness in the paraspinous muscles of the neck. Lymph: LYMPHATIC: no lymphadenopathy noted Chest: COMMONS NORMALS: normal inspection of the chest Resp: COMMON NORMALS: normal respiratory effort EFFORT & INSPECTION: Yes able to speak in complete sentences Cardio: COMMON NORMALS: regular rate and regular rhythm RATE: regular rate RHYTHM: regular rhythm GI: COMMON NORMALS: non-tender Back/Pelvis: COMMON NORMALS: thoracic and lumbar spine normal to inspection Extremity: COMMON NORMALS: normal to inspection Neuro: COMMON NORMALS: patient oriented x3 and moves all extremities OTHER: Weakness to the left upper extremity and left lower extremity. NIH scale of 3-4. Psych: COMMON NORMALS: mental status grossly normal and cooperative Skin: COMMON NORMALS: no rashes or lesions noted GENERAL SKIN EXAM: no rashes or lesions noted Course Vital Signs: Vital signs: Vital Signs Temperature 97.5 F L 08/21/20 13:15 Pulse Rate 87 08/21/20 14:32 Respiratory Rate 16 08/21/20 13:24 Blood Pressure 105/74 08/21/20 14:32 Pulse Oximetry 99 08/21/20 14:32 MDM - General Adult MDM Narrative: Medical decision making narrative: 30-year-old female comes in with numbness in the left hand with some pain in the neck. Patient denies any injury. Patient has a history of a stroke about 4 months ago. Patient reports a stroke was secondary to delivery of her baby and recent Covid infection. On exam patient has some residual weakness from her stroke to the left side. Patient's NIH stroke scale was 4 due to the weakness and some reduction in sensation in the left extremity. Remainder of the exam is normal. Vital signs are normal. Differential diagnosis includes peripheral neuropathy, cervical radiculopathy, cervical strain. CT of the head showed no significant abnormality changes from her previous exams done in April. CT of the neck did show some mild stenosis of the cervical spine. Reviewed exam with patient recommendations for treatment follow-up with spinal director medicare sales and neurology. Patient reported understanding of care plan. Discharge Plan Discharge Patient Disposition: Home Clinical Impression: Cervical radiculopathy Condition: Stable Prescriptions: New hydrocodone-acetaminophen 5-325 mg tablet 1 tab PO Q8H PRN (Reason: pain) Qty: 10 RF: 0 No Action acetaminophen [Tylenol] 325 mg capsule 325 mg PO QID PRN (Reason: Pain) RF: 0 folic acid 20 mg capsule 20 mg PO DAILY RF: 0 ondansetron HCl [Zofran] 4 mg tablet 4 mg PO Q8H PRN (Reason: Nausea) RF: 0 Nexplanon 68 mg implant See Rx Instructions .ROUTE .COMPLEX RF: 0 venlafaxine 150 mg capsule,extended release 24hr 150 mg PO DAILY Qty: 30 RF: 4 ferrous sulfate 325 mg (65 mg iron) tablet 325 mg PO DAILY RF: 0 Discharge Orders: Discharge ED (Routine); Ordered 08/21/20 Ordered By: Con Nesbitt Referrals: Steven Walker MD [Primary Care Provider] - Discharge Diet: Usual diet Discharge Activity: Increase activity as tolerated Patient Instructions: Cervical Radiculopathy (ED), Opioid Safety Activity Restrictions/Additional Instructions: Activity as tolerated. Acetaminophen or ibuprofen for mild pain. Use hydrocodone for breakthrough pain. Drink plenty of water with medication. Follow-up with spinal director medicare sales or neurologist for further evaluation and treatment recommendations. Return to the emergency department for new concerns. 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
--- NOTE | 2020-08-21 13:29 | CT_ITS ---
WS: [id number] CT CERVICAL SPINE TECHNIQUE: Noncontrast CT of the cervical spine with coronal and sagittal reformatted images. CLINICAL INFORMATION: right arm numbness, neck tenderness COMPARISON: None. DLP: 562.[address] scans at [facility] use at least one of these dose optimization techniques: automat ed exposure control; mA and/or kV adjustment per patient size (includes targeted exams where dose is matched to clinical indication); or iterative reconstruction. FINDINGS: Straightening of the normal cervical lordosis. Normal C1-2 articulation. No high-grade central canal stenosis. Normal dens. C2-C3: Normal. C3-C4: Normal. C4-C5: Tiny shallow central disc bulging. Spinal canal foramen are patent. C5-C6: Small central disc protrusion with slight effacement of the ventral thecal sac. This is eccent [place] to the left. Mild central canal stenosis. Foramen are patent. C6-C7: Minimal disc bulging. Spinal canal and foramen appear patent. C7-T1: Osteophytic ridging with mild left greater than right bony foraminal narrowing. Spinal canal a ppears patent. Visualized posterior nasopharynx: Normal. Prevertebral soft tissues: Normal. CT/CT cervical spin wo con* [id number] IMPRESSION: 1. Straightening of the normal cervical lordosis. No acute fractures. 2. Small left parasagittal central disc protrusion C5-C6 with slight effacemen t of the ventral thecal sac. Mild central canal stenosis. Foramen are patent. 3. Mild left C7-T1 bony foraminal narrowing. 4. Tiny shallow central protrusion C4-5 without significant spinal canal narro wing. 5. Above findings can be further evaluated MRI.
--- NOTE | 2020-08-21 13:29 | CT_ITS ---
WS: [id number] CT HEAD TECHNIQUE: Noncontrast CT of the head obtained from the skullbase to the vertex. CLINICAL INFORMATION: history of CVA, mild headache, numbness right arm COMPARISON: MRI and CT April 2020 DLP: 691.[address] scans at [facility] use at least one of these dose optimization techniques: automat ed exposure control; mA and/or kV adjustment per patient size (includes targeted exams where dose is matched to clinical indication); or iterative reconstruction. FINDINGS: No evidence of intracranial hemorrhage or mass effect. Ventricular system and basal cisterns are bhardwaj nt. No extra-axial fluid collections. No evidence of mass or mass effect. Normal emanuel-white different iation. Retention cyst partially visualized right maxillary sinus. Mastoid air cells well aerated. CT/CT head wo con* [id number] IMPRESSION: 1. No evidence of intracranial hemorrhage or mass effect. 2. Normal emanuel-white differentiation. 3. Signal abnormalities seen on the prior outside MRI April 2020 not seen o n today's CT. This would be better evaluated with MRI.
[2020-08-21 14:13] VITALS: BP 98/65; PULSE 80; O2SAT 99
[2020-08-21 14:31] VITALS: BP 105/74; PULSE 83; O2SAT 97
[2020-08-21 14:32] VITALS: BP 105/74; PULSE 87; O2SAT 99
--- NOTE | 2020-08-22 09:45 | DCPLANNER ---
finishing manager had message to schedule a follow up appointment for patient with a disability benefits specialist, Dr. Mccormick. finishing manager called the ortho clinic, spoke with Eveline, gave clinic patients information. finishing manager was told that patients information would be printed and reviewed. Clinic will call patient with appointment information.
--- NOTE | 2020-08-26 07:43 | DCPLANNER ---
Patient has a follow up appointment scheduled for August at 3:[address] Mccormick at ortho. Clinic will call patient with appointment information.
--- NOTE | 2020-09-17 15:03 | DCPLANNER ---
Patient had a follow up appointment scheduled for 08.28.[address] Mccormick at [facility] - patient did attend appointment.
== END 2020-08-21 14:36 | disposition home or self-care (01) ==
PROVIDERS: Emergency Provider Nurse Practitioner Family; PCP Family Medicine
DX: M54.12 Radiculopathy, cervical region (principal); Z86.73 Personal history of transient ischemic attack (TIA), and cerebral infarction without residual deficits; Z87.891 Personal history of nicotine dependence
CPT/HCPCS: 70450; 72125; 99282

== ENCOUNTER 2020-08-28 13:12 | Outpatient (CLI) | payer MEDICAID, SELFPAY | END 2020-08-28 13:13 | disposition home or self-care (01) | PROVIDERS: PCP Family Medicine; Visit Provider Orthopaedic Surgery | DX: M54.12 Radiculopathy, cervical region (principal) | CPT/HCPCS: 72050 ==

== ENCOUNTER 2020-09-04 08:00 | Outpatient (CLI) | payer MEDICAID, SELFPAY ==
--- NOTE | 2020-09-04 08:11 | MR_ITS ---
WS: [id number] MRI HEAD WITH CONTRAST TECHNIQUE: Sagittal T1, T2 axial, T2 axial FLAIR, axial susceptibility weighted imaging, axial diffus ion weighted images, and coronal T2 images were obtained. Pre and post-T1 axial and post T1 coronal i mages. ADC and FSPGR images. CLINICAL INFORMATION: I63.9 - Cerebral infarction, unspecified COMPARISON: CT July 2020 and MRI April 2020 FINDINGS: No evidence of restricted diffusion to suggest acute ischemia. Ventricular system and basal cisterns are patent. Normal emanuel-white differentiation. No suspicious internal signal abnormalities. Previousl y described symmetric T2 signal abnormality with restricted diffusion involving the corpus callosum a nd deep frontoparietal white matter in a symmetric distribution as well as the bilateral cerebellar p eduncles has completely resolved. No residual encephalomalacia. Findings compatible with resolved pos terior reversible encephalopathy. No hemosiderin on susceptibly weighted images. Normal posterior fossa. Normal vascular flow voids at the skull base. No extra-axial fluid collections. No evidence of mass or mass effect. No abnormal court olinium enhancement. Normal optic chiasm and pituitary infundibulum. Temporal lobes and hippocampal f ormations are normal in appearance. Normal visualized dural venous sinuses. MR/MR head wo/w con [id number] IMPRESSION: 1. Previously described signal abnormality on the prior MRI has completely res olved. No residual encephalomalacia or gliosis. 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 2. No suspicious or residual intracranial signal abnormalities today. Normal c orpus callosum. 3. No abnormal gadolinium enhancement. 4. No hemosiderin on susceptibly weighted images. 5. Large retention cyst right maxillary sinus measuring 2.5 CM.
[2020-09-04] MEDS: gadobenate dimeglumine 20 mL vial IV (08:49)
== END 2020-09-04 08:01 | disposition home or self-care (01) ==
LOC: RADSHAW 08:04
PROVIDERS: PCP Family Medicine; Visit Provider Specialist
DX: I63.9 Cerebral infarction, unspecified (principal); M27.40 Unspecified cyst of jaw
CPT/HCPCS: 70553; A9577

== ENCOUNTER 2020-10-24 06:00 | Outpatient (RCR) | payer MEDICAID, SELFPAY | END 2020-10-24 23:59 | disposition home or self-care (01) | LOC: SPT 06:00 | PROVIDERS: PCP Family Medicine; Referring Provider Orthopaedic Surgery; Visit Provider Orthopaedic Surgery | DX: M54.12 Radiculopathy, cervical region (principal); G89.29 Other chronic pain | CPT/HCPCS: 97110; 97162 ==

== ENCOUNTER 2020-11-12 07:28 | Emergency (ER) | payer MEDICAID, SELFPAY ==
[2020-11-12 07:50] VITALS: BP 102/70; PULSE 86; RESP 14; TEMP 36.8; O2SAT 98; BMI 27.8
--- NOTE | 2020-11-12 07:58 | XR_ITS ---
WS: [id number] Portable AP upright chest, 11/12/2020 Clinical Data: weakness Comparison: Portable chest, 03/14/2018. Findings: No nodules, masses or effusions are seen. The heart is normal. The pulmonary vascularity is not remarkable. No pneumonia or pneumothorax is present. XR/XR chest 1V portable [id number] Impression: Negative
--- NOTE | 2020-11-12 07:58 | CT_ITS ---
WS: [id number] CT HEAD TECHNIQUE: Noncontrast CT of the head obtained from the skullbase to the vertex. CLINICAL INFORMATION: hx of stroke, weakness COMPARISON: MRI September 04, 2020 DLP: 785.[address] scans at [facility] use at least one of these dose optimization techniques: automat ed exposure control; mA and/or kV adjustment per patient size (includes targeted exams where dose is matched to clinical indication); or iterative reconstruction. FINDINGS: No evidence of intracranial hemorrhage or mass effect. Ventricular system and basal cisterns are bhardwaj nt.No extra-axial fluid collections. No evidence of mass or mass effect. Normal emanuel-white differenti ation. Opacification right maxillary sinus. Mastoid air cells are well aerated. Incidental slightly low-lyin g cerebral tonsils. CT/CT head wo con* [id number] IMPRESSION: 1. No evidence of intracranial hemorrhage or mass effect. 2. Opacification right maxillary sinus. 3. No acute intracranial findings.
--- NOTE | 2020-11-12 07:59 | ECG_ITS ---
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 Measurements Intervals [place] Rate: 74 P: 44 MS: 141 QRS: 21 QRSD: 93 T: 25 QT: 317 QTc: 352 Interpretive Statements SINUS RHYTHM WITH SINUS ARRHYTHMIA Diffuse nonspecific T wave changes LOW QRS VOLTAGE IN PRECORDIAL LEADS [QRS DEFLECTION < 1.0 mV IN CHEST LEADS] No previous ECG available for comparison Electronically Signed On 11-13-2020 10:06:53 CDT by Denisa Rodriguez M.D. [email or web address]
--- NOTE | 2020-11-12 08:01 | ED_ITS ---
HPI - Dizziness General: Chief Complaint: Dizziness Stated Complaint: DIZZY, BLURRY VISION, (HAD STOKE 6 MONTHS AGO) Time Seen by Provider: 11/12/20 07:55 History of Present Illness: HPI Narrative: 30-year-old female presents with some dizziness, what she feels like is some mild blurred vision. Patient had a stroke approximately 6 months ago. At that time she was and had Covid. Patient has some residual left-sided weakness from the stroke. Today she feels like she is a little bit more weak and shaking her left side than normal. She denies any fevers chills, cough or other systemic complaints. Associated symptoms: Denies chest pain, chills, nausea, palpitations or vomiting Review of Systems Const: Reports: fatigue; Denies: fever(s) or chills Eyes: Reports: blurry vision; Denies: blind spots or photophobia ENMT: Denies: throat pain Card: Denies: chest pain or palpitations Resp: Denies: dyspnea or productive cough GI: Denies: abdominal pain, nausea or vomiting : Denies: difficulty voiding or dysuria Musc: Denies: neck pain or back pain Skin/Breast: Denies: rash Neuro: Reports: dizziness Endo: Denies: polyuria PFSH ED PFSH: Medical History Cerebrovascular accident Migraine headache Surgical History S/P section (04/27/20) RLTCS. Performed by Dr. Lopez at [facility] S/P laparoscopic cholecystectomy (~10/2019) Was at the time. S/P primary low transverse (08/03/14) [place] [facility] [place] Confirmed LTCS with 2 layer closure. Family History Denies family history of Diabetes Anesthesia complication Bleeding disorder Hypertension Stroke Social History Smoking and tobacco status: former smoker Quit status (tobacco): has quit using tobacco Year quit tobacco: 04/2019 Former quit date comment: Was smoking 1 PPD until switched to vaping in 2017. Quit in 04/2019. Alcohol intake: never Female Reproductive History: Date of last menstrual period: 07/24/20 Para: 1 Spontaneous abortions: No Physical Exam Const: COMMON NORMALS: no acute distress, patient oriented x3 and alert GENERAL APPEARANCE: cooperative and well developed HENMT: COMMON NORMALS: normocephalic and atraumatic HEAD & SCALP: normocephalic and atraumatic Eye: COMMON NORMALS: Equal, round and reactive pupils present and EOMs intact bilaterally PUPIL: Yes Equal, round and reactive pupils present Resp: COMMON NORMALS: normal respiratory effort, No retractions and clear to auscultation bilaterally AUSCULTATION: clear to auscultation bilaterally Cardio: COMMON NORMALS: regular rate and regular rhythm RATE: regular rate RHYTHM: regular rhythm GI: COMMON NORMALS: Soft to palpation and non-tender PALPATION: Yes Soft to palpation : COMMON NORMALS: Yes no CVA tenderness BLADDER/KIDNEY EXAM: Yes no CVA tenderness Back/Pelvis: COMMON NORMALS: no CVA tenderness Extremity: NARRATIVE EXTREMITY EXAM: Mild decreased left upper and lower extremity weakness but still for 5-5 out of 5 strength. Neuro: COMMON NORMALS: patient oriented x3, CN's II-XII intact bilaterally and moves all extremities SENSORIUM/ORIENTATION: Yes alert Psych: COMMON NORMALS: mental status grossly normal MOOD & AFFECT: Yes depressed mood Skin: COMMON NORMALS: no rashes or lesions noted GENERAL SKIN EXAM: no rashes or lesions noted Course Vital Signs: Vital signs: Vital Signs Temperature 98.3 F 11/12/20 07:50 Pulse Rate 64 11/12/20 10:29 Respiratory Rate 16 11/12/20 10:29 Blood Pressure 110/68 11/12/20 10:29 Pulse Oximetry 99 11/12/20 10:29 MDM - Dizziness MDM Narrative: Medical decision making narrative: Patient with what appears to be a mild urinary tract infection. Patient with no acute neurologic deficits or symptoms that would be consistent with further TIA or stroke. Patient will be prescribed Macrobid and discharged home. She should follow-up with her primary care provider in a couple days Lab Data: Attestation: I reviewed the patient's lab results. Labs: Lab Results 11/12/20 11/12/20 11/12/20 Range/Units 08:15 08:15 09:38 WBC 7.3 (4.0-10.0) 10^3/ uL RBC 4.27 (4.1-5.3) 10^6/u L Hgb 12.8 (11.5-15.3) g/dL Hct 39.3 (37.0-47.0) % MCV 92.0 (81-99) fL MCH 30.0 (28.0-34.0) pg MCHC 32.6 (30.0-36.0) g/dL RDW 12.5 (12.1-15.1) % Plt Count 261 (130-400) 10^3/c mm MPV 10.7 H (7.4-10.4) fL Neut % (Auto) 55.9 % Lymph % (Auto) 38.0 % [place] % (Auto) 4.8 % Eos % (Auto) 0.8 % Baso % (Auto) 0.1 % Neut # (Auto) 4.05 (1.8-7.7) 10^3/u L Lymph # (Auto) 2.8 (0.8-4.8) 10^3/u L [place] # (Auto) 0.4 (0.2-0.9) 10^3/u L Eos # (Auto) 0.1 (0.0-0.8) 10^3/u L Baso # (Auto) 0.0 (0.0-0.1) 10^3/u L Nucleated RBC % (a uto) 0 % Nucleated RBCs # 0.0 /100WBC Sodium 140 (136-145) mmol/L Potassium 4.1 (3.5-5.1) mmol/L Chloride 106 (98-107) mmol/L Carbon Dioxide 26 (22-29) mmol/L Anion Gap 12.1 (5-19) BUN 11 (6-20) mg/dL Creatinine 0.5 (0.5-0.9) mg/dL GFR Calculation 145.9 H (90-130) mL/min Glucose 99 (65-115) mg/dL Calculated Osmolal ity 289 (285-295) mOsm/k g Calcium 8.9 (8.5-10.5) mg/dL Magnesium 1.9 (1.7-2.3) mg/dL Total Bilirubin 0.2 (0.15-1.2) mg/dL AST 36 H (0-32) U/L ALT 71 H (0-33) U/L Alkaline Phosphata se 111 H (35-105) IU/L Total Protein 6.7 (6.6-8.7) g/dL Albumin 4.2 (3.5-5.2) g/dL Globulin 2.5 (1.3-4.6) g/dL Urine Color Yellow (Yellow) Urine Appearance Clear (CLEAR) Urine pH 7 (5-7) Ur Specific Gravit y 1.010 (1.005-1.030) Urine Protein Neg (Negative) Urine Glucose (UA) Norm (Normal) Urine Ketones Negative (Negative) Urine Blood Neg (Negative) Urine Nitrate Negative (Negative) Urine Bilirubin Neg (Negative) Urine Urobilinogen Norm (Negative) mg/dL Ur Leukocyte Halley ase Trace H (Negative) Urine RBC 0-4 H (0-2) /hpf Urine WBC 0-4 H (0-5) /hpf Ur Squamous Epith Cells 0-4 H (0-5) /hpf Amorphous Sediment Not Reportable Urine Bacteria 1+ H (NONE) /hpf Imaging Data^: CT Head: Attestation: I personally reviewed and interpreted this imaging study as follows: My impression: No acute finding Radiologist's impression: Negative head CT Discharge Plan Discharge Patient Disposition: Home Condition: Stable Prescriptions: New Macrobid 100 mg capsule 100 mg PO BID 5 Days Qty: 10 RF: 0 No Action acetaminophen [Tylenol] 325 mg capsule 325 mg PO QID PRN (Reason: Pain) RF: 0 folic acid 20 mg capsule 20 mg PO DAILY RF: 0 ondansetron HCl [Zofran] 4 mg tablet 4 mg PO Q8H PRN (Reason: Nausea) RF: 0 Nexplanon 68 mg implant See Rx Instructions .ROUTE .COMPLEX RF: 0 venlafaxine 150 mg capsule,extended release 24hr 150 mg PO DAILY Qty: 30 RF: 4 ferrous sulfate 325 mg (65 mg iron) tablet 325 mg PO DAILY RF: 0 hydrocodone-acetaminophen 5-325 mg tablet 1 tab PO Q8H PRN (Reason: pain) Qty: 10 RF: 0 Discharge Orders: Discharge ED (Routine); Ordered 11/12/20 Ordered By: Thompson Martin Referrals: Steven Walker MD [Primary Care Provider] - Discharge Diet: Usual diet Discharge Activity: Resume usual activity Patient Instructions: Urinary Tract Infection in Women (ED), Opioid Safety Activity Restrictions/Additional Instructions: Follow-up with your primary care provider in 4 to 5 days for recheck of today's symptoms Stand Alone Forms: Work/School Release Coding Level of Care Code ED Rn Urology for Molly Fwd Exam Comprehensive
[2020-11-12 08:24] LABS: Basophils % 0.1 %; Eosinophils # 0.1 10^3/uL (0.0-0.8); Eosinophils % 0.8 %; Hematocrit 39.3 % (37.0-47.0); Hemoglobin 12.8 g/dL (11.5-15.3); Lymphocytes # 2.8 10^3/uL (0.8-4.8); Mean Corpuscular HGB Conc 32.6 g/dL (30.0-36.0); Mean Platelet Volume 10.7 fL (7.4-10.4); Monocytes # 0.4 10^3/uL (0.2-0.9); Monocytes % 4.8 %; Neutrophils # 4.05 10^3/uL (1.8-7.7); Neutrophils % 55.9 %; Nucleated Red Blood Cells % 0 %; Platelet Count 261 10^3/cmm (130-400); Red Blood Count 4.27 10^6/uL (4.1-5.3); Red Cell Distribution Width 12.5 % (12.1-15.1); White Blood Count 7.3 10^3/uL (4.0-10.0)
[2020-11-12] MEDS: lactated ringers 1,000 ML 999 ML IV (08:24)
[2020-11-12 08:43] LABS: Alanine Aminotransferase 71 U/L (0-33); Albumin Level 4.2 g/dL (3.5-5.2); Alkaline Phosphatase 111 IU/L (35-105); Blood Urea Nitrogen 11 mg/dL (6-20); Calcium 8.9 mg/dL (8.5-10.5); Carbon Dioxide 26 mmol/L (22-29); Chloride 106 mmol/L (98-107); Globulin 2.5 g/dL (1.3-4.6); Glomerular Filtration Rate 145.9 mL/min (90-130); Glucose 99 mg/dL (65-115); Magnesium 1.9 mg/dL (1.7-2.3); Osmolality Calculated 289 mOsm/kg (285-295); Sodium 140 mmol/L (136-145); Total Bilirubin 0.2 mg/dL (0.15-1.2); Total Protein 6.7 g/dL (6.6-8.7)
[2020-11-12 08:49] LABS: Anion Gap 12.1 (5-19); Aspartate Amino Transferase 36 U/L (0-32); Potassium 4.1 mmol/L (3.5-5.1)
[2020-11-12 09:41] VITALS: BP 97/44; PULSE 64; RESP 14; O2SAT 98
[2020-11-12 10:00] LABS: Add Urine Microscopic? YES; Bilirubin Urine Neg (Negative); Blood Urine Neg (Negative); Glucose Urine UA Norm (Normal); Ketones Urine Negative (Negative); Leukocyte Esterase Urine Trace (Negative); Nitrate Urine Negative (Negative); Protein Urine Neg (Negative); Urine Appearance Clear (CLEAR); Urine Color Yellow (Yellow); Urobilinogen Urine Norm (Negative); pH Urine 7 (5-7)
[2020-11-12 10:02] LABS: Add Urine Culture? No; Bacteria Urine 1+ /hpf; RBC Urine 0-4 /hpf (0-2); Squamous Epithelial Cell Urine 0-4 /hpf (0-5); WBC Urine 0-4 /hpf (0-5)
[2020-11-12 10:29] VITALS: BP 110/68; PULSE 64; RESP 16; O2SAT 99
== END 2020-11-12 10:30 | disposition home or self-care (01) ==
PROVIDERS: Emergency Provider Student in an Organized Health Care Education/Training Program; PCP Family Medicine
DX: Z87.891 Personal history of nicotine dependence (principal)
CPT/HCPCS: 70450; 71045; 80053; 81001; 83735; 85025; 93005; 96360; 99283

== ENCOUNTER → 2021-01-25 13:06 | Outpatient (BNVA) | payer MEDICAID, SELFPAY | PROVIDERS: PCP Family Medicine; Visit Provider Nurse Practitioner | DX: J02.0 Streptococcal pharyngitis (principal) | CPT/HCPCS: 87880 ==

== ENCOUNTER 2021-03-21 02:54 | Emergency (ER) | payer MEDICAID, SELFPAY ==
[2021-03-21 03:01] VITALS: BP 108/74; PULSE 114; RESP 19; TEMP 37.2; O2SAT 96; BMI 28.3
[2021-03-21 03:29] LABS: Rapid Strep A Test Positive (Negative)
--- NOTE | 2021-03-21 03:58 | ED_ITS ---
HPI - General Adult General: Chief complaint: General Medical Stated complaint: sore throat/difficulty swallowing Time Seen by Provider: 03/21/21 03:16 History of Present Illness: HPI narrative: 30-year-old female with sore throat for a day. She denies any fever. She denies significant cough Onset (ago): day(s) Location: neck Radiation: non-radiation Severity: moderate Quality: aching Pain Consistency: constant Relieving factors: none Exacerbating factors: other Associated symptoms: Reports headache(s); Deny chest pain, decreased appetite, fevers/chills, nausea, rash, short of breath or vomiting Review of Systems Card: Denies: chest pain GI: Denies: nausea or vomiting Skin/Breast: Denies: rash Neuro: Reports: headache(s) PFSH ED PFSH: Medical History Cerebrovascular accident Migraine headache Surgical History S/P section (04/27/20) RLTCS. Performed by Dr. Lopez at [facility] S/P laparoscopic cholecystectomy (~10/2019) Was at the time. S/P primary low transverse (08/03/14) Per[place] Dr. Lopez [place] [facility] [place], [place] Confirmed LTCS with 2 layer closure. Family History Denies family history of Diabetes Anesthesia complication Bleeding disorder Hypertension Stroke Social History Smoking and tobacco status: former smoker Quit status (tobacco): has quit using tobacco Year quit tobacco: 04/2019 Former quit date comment: Was smoking 1 PPD until switched to vaping in 2018. Quit in 04/2019. Alcohol intake: never Female Reproductive History: Date of last menstrual period: 07/24/20 Para: 1 Spontaneous abortions: No Physical Exam Const: COMMON NORMALS: no acute distress, patient oriented x3 and alert GENERAL APPEARANCE: ill appearing (Mild) HENMT: COMMON NORMALS: normocephalic, external ears normal and Normal external nose present HEAD & SCALP: normocephalic FACE & SINUS: normal facial exam, sinuses nontender and face symmetric NOSE: Normal external nose present and Normal nares present EXTERNAL EAR: Yes external ears normal MOUTH: Normal oral and palatal mucosa present THROAT: abnormal tonsil bilateral erythema and exudates; no peritonsillar mass and uvula not laterally displaced Eye: COMMON NORMALS: Equal, round and reactive pupils present and EOMs intact bilaterally PUPIL: Yes Equal, round and reactive pupils present Chest: COMMONS NORMALS: normal inspection of the chest Resp: COMMON NORMALS: normal respiratory effort, No use of accessory muscles and clear to auscultation bilaterally AUSCULTATION: clear to auscultation bilaterally Cardio: COMMON NORMALS: regular rhythm RATE: tachycardic RHYTHM: regular rhythm Neuro: COMMON NORMALS: patient oriented x3 SENSORIUM/ORIENTATION: Yes alert Course Vital Signs: Vital signs: Vital Signs Temperature 99.0 F 03/21/21 03:01 Pulse Rate 81 03/21/21 04:19 Respiratory Rate 16 03/21/21 04:19 Blood Pressure 101/67 03/21/21 04:19 Pulse Oximetry 99 03/21/21 04:19 [facility] - General Adult Lab Data: Labs: Lab Results 03/21/21 03:12 Group A Strep Rapi d Positive H (Negative) Discharge Plan Discharge Patient Disposition: Home Clinical Impression: Strep pharyngitis Condition: Stable Prescriptions: New cephalexin 500 mg capsule 500 mg PO Q6H 10 Days Qty: 40 RF: 0 ketorolac 10 mg tablet 10 mg PO TID PRN (Reason: pain) Qty: 10 RF: 0 No Action acetaminophen [Tylenol] 325 mg capsule 325 mg PO QID PRN (Reason: Pain) RF: 0 folic acid 20 mg capsule 20 mg PO DAILY RF: 0 ondansetron HCl [Zofran] 4 mg tablet 4 mg PO Q8H PRN (Reason: Nausea) RF: 0 Nexplanon 68 mg implant See Rx Instructions .ROUTE .COMPLEX RF: 0 venlafaxine 150 mg capsule,extended release 24hr 150 mg PO DAILY Qty: 30 RF: 4 topiramate [Topamax] 50 mg tablet 50 mg PO DAILY RF: 0 FLOUXOTINE PO RF: 0 amoxicillin-pot clavulanate [Augmentin] 875-125 mg tablet 1 tab PO Q12H 7 Days Qty: 14 RF: 0 ferrous sulfate 325 mg (65 mg iron) tablet 325 mg PO DAILY RF: 0 hydrocodone-acetaminophen 5-325 mg tablet 1 tab PO Q8H PRN (Reason: pain) Qty: 10 RF: 0 Discharge Orders: Discharge ED (Routine); Ordered 03/21/21 Ordered By: Tej Aguilar Referrals: Steven Walker MD [Primary Care Provider] - 4-7 days Discharge Diet: Advance as tolerated Discharge Activity: Increase activity as tolerated Patient Instructions: Strep Throat (ED) Coding Level of Care Code ED Curriculum Development Manager for Chg Fwd Exam Detailed
[2021-03-21] MEDS: HYDROcodone-APAP 7.5-325 mg/15 mL UDC PO (04:05)
[2021-03-21] MEDS: dexamethasone 4 mg Tablet 10 MG PO (04:05)
[2021-03-21] MEDS: cephALEXin 500 mg Capsule PO (04:05)
[2021-03-21 04:19] VITALS: BP 101/67; PULSE 81; RESP 16; O2SAT 99
== END 2021-03-21 04:20 | disposition home or self-care (01) ==
PROVIDERS: Emergency Provider Emergency Medicine; PCP Family Medicine
DX: J02.0 Streptococcal pharyngitis (principal); Z87.891 Personal history of nicotine dependence
CPT/HCPCS: 87880; 99283; J8540

== ENCOUNTER 2021-04-01 19:03 | Emergency (ER) | payer MEDICAID, SELFPAY ==
[2021-04-01 19:35] VITALS: BP 108/70; PULSE 121; RESP 18; TEMP 39.2; O2SAT 97; BMI 28.3
--- NOTE | 2021-04-01 19:45 | W.ED.FEVER ---
HPI - Fever General: Chief Complaint: Fever Stated Complaint: fever @ home, feels like in a daze Time Seen by Provider: 04/01/21 19:43 History of Present Illness: HPI Narrative: 30-year-old female comes in today with cough and fever for about 2 days now. Patient came in today due to the fever getting worse. Patient appears mildly unwell but not toxic. Patient does have a history of COVID-19 and March of last year. Patient did have some secondary complications to COVID-19 when she suffered a mild stroke after the infection. Patient is alert oriented. Patient taken some acetaminophen about 2 hours prior to arrival. Patient's temperature at this time is 102. MD elicited complaint: fever Review of Systems General: Reports: 10 or more systems reviewed and unremarkable except in HPI and below Resp: Reports: dyspnea and non-productive cough PFSH ED PFSH: Medical History Cerebrovascular accident Migraine headache Surgical History S/P section (04/27/20) RLTCS. Performed by Dr. Lopez at [facility] S/P laparoscopic cholecystectomy (~10/2019) Was at the time. S/P primary low transverse (08/03/14) Performed by Dr. Lopez at [facility] in [place], [place]. Confirmed LTCS with 2 layer closure. Family History Denies family history of Diabetes Anesthesia complication Bleeding disorder Hypertension Stroke Social History Smoking and tobacco status: former smoker Quit status (tobacco): has quit using tobacco Year quit tobacco: 04/2019 Former quit date comment: Was smoking 1 PPD until switched to vaping in 2018. Quit in 04/2019. Alcohol intake: never Female Reproductive History: Date of last menstrual period: 03/21/21 Para: 1 Spontaneous abortions: No Physical Exam Const: COMMON NORMALS: no acute distress and patient oriented x3 GENERAL APPEARANCE: cooperative HENMT: COMMON NORMALS: normocephalic and Normal external nose present HEAD & SCALP: normal to inspection and normocephalic NOSE: Normal external nose present TYMPANIC MEMBRANE: TM normal on the right and TM abnormal TM laterality: right Details: dull and erythematous MOUTH: Normal oral and palatal mucosa present THROAT: posterior oropharynx normal Eye: GENERAL EYE: appearance normal, both eyes and all related structures Neck/C-Spine: COMMON NORMALS: full ROM Lymph: LYMPHATIC: no lymphadenopathy noted Chest: COMMONS NORMALS: normal inspection of the chest Resp: COMMON NORMALS: normal respiratory effort EFFORT & INSPECTION: Yes able to speak in complete sentences AUSCULTATION: diminished lung sounds Cardio: COMMON NORMALS: regular rate and regular rhythm RATE: regular rate RHYTHM: regular rhythm GI: COMMON NORMALS: non-tender : COMMON NORMALS: Yes no CVA tenderness BLADDER/KIDNEY EXAM: Yes no CVA tenderness Back/Pelvis: COMMON NORMALS: no CVA tenderness and thoracic and lumbar spine normal to inspection Extremity: COMMON NORMALS: normal to inspection Neuro: COMMON NORMALS: patient oriented x3 and moves all extremities Psych: COMMON NORMALS: mental status grossly normal and cooperative Skin: COMMON NORMALS: no rashes or lesions noted GENERAL SKIN EXAM: no rashes or lesions noted Course Vital Signs: Vital signs: Vital Signs Temperature 102.6 F H 04/01/21 19:35 Pulse Rate 121 H 04/01/21 19:35 Respiratory Rate 18 04/01/21 19:35 Blood Pressure 108/70 04/01/21 19:35 Pulse Oximetry 97 04/01/21 19:35 MDM - Fever MDM Narrative: Medical decision making narrative: Patient came in today with complaints of fever and feeling of malaise. Patient's been ill for about 2 days. On exam patient's pharynx was slightly erythematous, patient had occasional cough. Temperature was 102. Respirations were even lungs were clear to auscultation. Abdomen soft nontender. Vital signs were otherwise normal except for some elevation of heart rate. Differential diagnosis includes but not limited to viral syndrome, strep pharyngitis, pneumonia, urinary tract infection. COVID-19 and influenza were both negative. Strep test was positive. Chest x-ray and urine were clear. Remainder of labs are unremarkable. Patient will be given a dose of Rocephin through the IV. Patient will then continue with cefdinir twice daily for the next 7 days. Encourage plenty of fluids and follow-up with primary care. Lab Data: Labs: Lab Results 10/12/1504/01/21 04/01/21 20:14 20:14 20:15 WBC 6.9 10^3/uL 10^3/ uL (4.0-10.0) RBC 4.32 10^6/uL 10^6 /uL (4.1-5.3) Hgb 12.6 g/dL g/dL (11.5-15.3) Hct 39.7 % % (37.0-47.0) MCV 91.9 fl fl (81-99) MCH 29.2 pg pg (28.0-34.0) MCHC 31.7 g/dL g/dL (30.0-36.0) RDW 12.2 % % (12.1-15.1) Plt Count 185 10^3/cmm 10^3 /cmm (130-400) MPV 10.7 fL H fL (7.4-10.4) Neut % (Auto) 67.9 % % Lymph % (Auto) 26.0 % % [place] % (Auto) 5.0 % % Eos % (Auto) 0.4 % % Baso % (Auto) 0.3 % % Neut # (Auto) 4.65 10^3/uL 10^3 /uL (1.8-7.7) Lymph # (Auto) 1.8 10^3/uL 10^3/ uL (0.8-4.8) [place] # (Auto) 0.3 10^3/uL 10^3/ uL (0.2-0.9) Eos # (Auto) 0.0 10^3/uL 10^3/ uL (0.0-0.8) Baso # (Auto) 0.0 10^3/uL 10^3/ uL (0.0-0.1) Nucleated RBC % (a uto) 0 % % Nucleated RBCs # 0.0 /100WBC /100W BC Sodium 135 mmol/L L mmol /L (136-145) Potassium 3.5 mmol/L mmol/L (3.5-5.1) Chloride 104 mmol/L mmol/L (98-107) Carbon Dioxide 19 mmol/L L mmol/ L (22-29) Anion Gap 15.5 (5-19) BUN 7 mg/dL mg/dL (6-20) Creatinine 0.6 mg/dL mg/dL (0.5-0.9) GFR Calculation 118.2 mL/min mL/m in (90-130) Glucose 104 mg/dL mg/dL (65-115) Calculated Osmolal ity 278 mOsm/kg L mOs m/kg (285-295) Calcium 9.0 mg/dL mg/dL (8.5-10.5) Total Bilirubin 0.3 mg/dL mg/dL (0.15-1.2) AST 66 U/L H U/L (0-32) ALT 99 U/L H U/L (0-33) Alkaline Phosphata se 127 IU/L H IU/L (35-105) Total Protein 6.8 g/dL g/dL (6.6-8.7) Albumin 3.8 g/dL g/dL (3.5-5.2) Globulin 3.0 g/dL g/dL (1.3-4.6) Urine Color Urine Appearance Urine pH Ur Specific Gravit y Urine Protein Urine Glucose (UA) Urine Ketones Urine Blood Urine Nitrate Urine Bilirubin Urine Urobilinogen Ur Leukocyte Halley ase Amorphous Sediment Urine HCG, Qual Negative (Negative) Influenza Type A A g Influenza Type B A g SARS-CoV-2 Ag (Rap id) Group A Strep Rapi d 04/01/21 04/01/21 04/01/21 20:15 20:40 20:40 WBC RBC Hgb Hct MCV MCH MCHC RDW Plt Count MPV Neut % (Auto) Lymph % (Auto) [place] % (Auto) Eos % (Auto) Baso % (Auto) Neut # (Auto) Lymph # (Auto) [place] # (Auto) Eos # (Auto) Baso # (Auto) Nucleated RBC % (a uto) Nucleated RBCs # Sodium Potassium Chloride Carbon Dioxide Anion Gap BUN Creatinine GFR Calculation Glucose Calculated Osmolal ity Calcium Total Bilirubin AST ALT Alkaline Phosphata se Total Protein Albumin Globulin Urine Color Yellow (Yellow) Urine Appearance Clear (CLEAR) Urine pH 5 (5-7) Ur Specific Gravit y 1.015 (1.005-1.030) Urine Protein Neg (Negative) Urine Glucose (UA) Norm (Normal) Urine Ketones Negative (Negative) Urine Blood 2+ H (Negative) Urine Nitrate Negative (Negative) Urine Bilirubin 1+ H (Negative) Urine Urobilinogen Norm mg/dL mg/dL (Negative) Ur Leukocyte Halley ase Negative (Negative) Amorphous Sediment Not Reportable Urine HCG, Qual Influenza Type A A g Negative (Negative) Influenza Type B A g Negative (Negative) SARS-CoV-2 Ag (Rap id) Group A Strep Rapi d Positive H (Negative) 04/01/21 20:40 WBC RBC Hgb Hct MCV MCH MCHC RDW Plt Count MPV Neut % (Auto) Lymph % (Auto) [place] % (Auto) Eos % (Auto) Baso % (Auto) Neut # (Auto) Lymph # (Auto) [place] # (Auto) Eos # (Auto) Baso # (Auto) Nucleated RBC % (a uto) Nucleated RBCs # Sodium Potassium Chloride Carbon Dioxide Anion Gap BUN Creatinine GFR Calculation Glucose Calculated Osmolal ity Calcium Total Bilirubin AST ALT Alkaline Phosphata se Total Protein Albumin Globulin Urine Color Urine Appearance Urine pH Ur Specific Gravit y Urine Protein Urine Glucose (UA) Urine Ketones Urine Blood Urine Nitrate Urine Bilirubin Urine Urobilinogen Ur Leukocyte Halley ase Amorphous Sediment Urine HCG, Qual Influenza Type A A g Influenza Type B A g SARS-CoV-2 Ag (Rap id) Negative (Negative) Group A Strep Rapi d EKG Data^: EKG 1: Attestation: I personally reviewed and interpreted this EKG as follows: (194, EKG shows a sinus tachycardia with a regular rate at 123 bpm. No ectopy is noted. No ST elevation is noted. No prior exam is available for comparison.) Discharge Plan Discharge Patient Disposition: Home Clinical Impression: Strep pharyngitis Fever Qualifiers: Fever type: unspecified Qualified Code(s): R50.9 - Fever, unspecified Condition: Stable Prescriptions: New cefdinir 300 mg capsule 300 mg PO BID 7 Days Qty: 14 RF: 0 No Action acetaminophen [Tylenol] 325 mg capsule 325 mg PO QID PRN (Reason: Pain) RF: 0 folic acid 20 mg capsule 20 mg PO DAILY RF: 0 ondansetron HCl [Zofran] 4 mg tablet 4 mg PO Q8H PRN (Reason: Nausea) RF: 0 Nexplanon 68 mg implant See Rx Instructions .ROUTE .COMPLEX RF: 0 venlafaxine 150 mg capsule,extended release 24hr 150 mg PO DAILY Qty: 30 RF: 4 topiramate [Topamax] 50 mg tablet 50 mg PO DAILY RF: 0 FLOUXOTINE PO RF: 0 amoxicillin-pot clavulanate [Augmentin] 875-125 mg tablet 1 tab PO Q12H 7 Days Qty: 14 RF: 0 ferrous sulfate 325 mg (65 mg iron) tablet 325 mg PO DAILY RF: 0 ketorolac 10 mg tablet 10 mg PO TID PRN (Reason: pain) Qty: 10 RF: 0 hydrocodone-acetaminophen 5-325 mg tablet 1 tab PO Q8H PRN (Reason: pain) Qty: 10 RF: 0 Discharge Orders: Discharge ED (Routine); Ordered 04/01/21 Ordered By: Con Nesbitt Referrals: Steven Walker MD [Primary Care Provider] - Discharge Diet: Usual diet Discharge Activity: Increase activity as tolerated Patient Instructions: Strep Throat (ED), Opioid Safety Activity Restrictions/Additional Instructions: Drink plenty of water with medication. Change out your toothbrush tomorrow. Take acetaminophen and ibuprofen for pain and fever. Follow-up with primary care in 1 week for recheck. Return to the ER as needed for new concerns. Coding Level of Care Code ED Yolk Spray Drier for [place] Fwd Exam Comprehensive
[2021-04-01] MEDS: ibuprofen 200 mg Tablet 400 MG PO (20:10)
[2021-04-01] MEDS: sodium chloride 0.9% 1,000 ML 999 ML IV (20:10)
[2021-04-01 20:31] LABS: Basophils % 0.3 %; Eosinophils % 0.4 %; Hematocrit 39.7 % (37.0-47.0); Hemoglobin 12.6 g/dL (11.5-15.3); Lymphocytes # 1.8 10^3/uL (0.8-4.8); Mean Corpuscular HGB Conc 31.7 g/dL (30.0-36.0); Mean Corpuscular Hemoglobin 29.2 pg (28.0-34.0); Mean Corpuscular Volume 91.9 fl (81-99); Mean Platelet Volume 10.7 fL (7.4-10.4); Monocytes # 0.3 10^3/uL (0.2-0.9); Neutrophils # 4.65 10^3/uL (1.8-7.7); Neutrophils % 67.9 %; Nucleated Red Blood Cells % 0 %; Platelet Count 185 10^3/cmm (130-400); Red Blood Count 4.32 10^6/uL (4.1-5.3); Red Cell Distribution Width 12.2 % (12.1-15.1); White Blood Count 6.9 10^3/uL (4.0-10.0)
[2021-04-01 20:51] LABS: Alanine Aminotransferase 99 U/L (0-33); Albumin Level 3.8 g/dL (3.5-5.2); Alkaline Phosphatase 127 IU/L (35-105); Anion Gap 15.5 (5-19); Aspartate Amino Transferase 66 U/L (0-32); Blood Urea Nitrogen 7 mg/dL (6-20); Carbon Dioxide 19 mmol/L (22-29); Chloride 104 mmol/L (98-107); Glomerular Filtration Rate 118.2 mL/min (90-130); Glucose 104 mg/dL (65-115); Osmolality Calculated 278 mOsm/kg (285-295); Potassium 3.5 mmol/L (3.5-5.1); Sodium 135 mmol/L (136-145); Total Bilirubin 0.3 mg/dL (0.15-1.2); Total Protein 6.8 g/dL (6.6-8.7)
[2021-04-01] MEDS: cefTRIAXone 1,000 MG in sodium chloride 0.9% (plus) 50 ML 100 MG IV (21:30)
[2021-04-01 21:31] LABS: Rapid Strep A Test Positive (Negative)
[2021-04-01 21:58] LABS: SARS Covid-2 Antigen Negative (Negative)
[2021-04-01 21:59] LABS: Influenza A by IFA Negative (Negative); Influenza B by IFA Negative (Negative)
[2021-04-01 22:04] LABS: Add Urine Microscopic? YES; Bilirubin Urine 1+ (Negative); Blood Urine 2+ (Negative); Glucose Urine UA Norm (Normal); Ketones Urine Negative (Negative); Leukocyte Esterase Urine Negative (Negative); Nitrate Urine Negative (Negative); Protein Urine Neg (Negative); Specific Gravity, Urine 1.015 (1.005-1.030); Urine Appearance Clear (CLEAR); Urine Color Yellow (Yellow); Urobilinogen Urine Norm (Negative); pH Urine 5 (5-7)
[2021-04-01 22:19] LABS: Add Urine Culture? No; Bacteria Urine 1+ /hpf; Mucus Urine 2+ /hpf; RBC Urine 0-4 /hpf (0-2)
[2021-04-01 22:31] VITALS: BP 103/73; PULSE 86; RESP 18; O2SAT 98
== END 2021-04-01 22:30 | disposition home or self-care (01) ==
PROVIDERS: Emergency Provider Nurse Practitioner Family; PCP Family Medicine
DX: J02.0 Streptococcal pharyngitis (principal); Z87.891 Personal history of nicotine dependence; Z20.822 Contact with and (suspected) exposure to COVID-19
CPT/HCPCS: 80053; 81001; 81025; 85025; 87040; 87426; 87804; 87880; 96365; 99284; J0696; J7030

== ENCOUNTER 2021-10-14 20:35 | Emergency (ER) | payer MEDICAID, SELFPAY ==
[2021-10-14 20:50] VITALS: BP 98/63; PULSE 102; RESP 14; TEMP 37.5; O2SAT 98; BMI 30.2
--- NOTE | 2021-10-14 21:05 | CTR_ITS ---
PROCEDURE INFORMATION: Exam: CT Head Without Contrast Exam date and time: 10/14/2021 9:29 PM Age: 31 years old Clinical indication: Pain; Weakness, extremity; Headache; Patient HX: C/O migraine with left arm numbness. ; Additional info: Migraine, left arm numbness TECHNIQUE: Imaging protocol: Computed tomography of the head without contrast. Radiation optimization: All CT scans at this facility use at least one of these dose optimization techniques: automated exposure control; mA and/or kV adjustment per patient size (includes targeted exams where dose is matched to clinical indication); or iterative reconstruction. COMPARISON: CT head wo con* [id number] 11/12/2020 8:19 AM RADIATION DOSE METRICS: Total DLP (mGy-cm): 748.02 FINDINGS: Brain: Normal. No hemorrhage. Unremarkable white matter. No mass effect. Cerebral ventricles: No ventriculomegaly. Paranasal sinuses: Right maxillary sinus partial opacification. Right sphenoid sinus 8.7 mm mucous retention cyst versus polyp somewhat visualized Mastoid air cells: Visualized mastoid air cells are well aerated. Bones/joints: Unremarkable. No acute fracture. Soft tissues: Unremarkable. CT/CT head wo con* [id number] IMPRESSION: Negative for intracranial hemorrhage or mass effect.
--- NOTE | 2021-10-14 21:07 | W.ED.HA ---
HPI - Headache General: Chief Complaint: Headache Stated Complaint: Rashaun, Left arm is numb Time Seen by Provider: 10/14/21 21:02 History of Present Illness: 31-year-old female comes in today with complaints of headache. Patient also has some complaints of numbness to left arm. Patient reports a history of a CVA 1-1/2 years ago during the of her child. Patient has had some residual headaches and numbness to her left arm since the CVA. Patient has been without her medications for prevention of headaches for a few months now. Patient reports that there was concern due to the numbness in her arm that she may be having a new stroke. NIH stroke scale was normal. GCS is 15. Associated symptoms: Deny chest pain or vomiting Review of Systems General: Reports: 10 or more systems reviewed and unremarkable except in HPI and below Card: Denies: chest pain Resp: Denies: dyspnea GI: Denies: vomiting Musc: Denies: neck pain Neuro: Reports: headache(s) PFSH ED PFSH: Medical History Cerebrovascular accident Migraine headache Surgical History S/P section (04/27/20) RLTCS. Performed by Dr. Lopez at [facility] S/P laparoscopic cholecystectomy (~10/2019) Was at the time. S/P primary low transverse (08/03/14) [place]. [place] [facility] [place] Confirmed LTCS with 2 layer closure. Family History Denies family history of Diabetes Anesthesia complication Bleeding disorder Hypertension Stroke Social History Quit status (tobacco): has quit using tobacco Year quit tobacco: 04/2019 Former quit date comment: Was smoking 1 PPD until switched to vaping in 2017. Quit in 04/2019. Alcohol intake: never Female Reproductive History: Date of last menstrual period: 03/21/21 Para: 1 Spontaneous abortions: No Physical Exam Const: COMMON NORMALS: alert HENMT: COMMON NORMALS: normocephalic HEAD & SCALP: normocephalic Eye: COMMON NORMALS: Equal, round and reactive pupils present and EOMs intact bilaterally PUPIL: Yes Equal, round and reactive pupils present Neck/C-Spine: COMMON NORMALS: full ROM Resp: COMMON NORMALS: normal respiratory effort Cardio: COMMON NORMALS: regular rate RATE: regular rate Extremity: COMMON NORMALS: full ROM Neuro: SENSORIUM/ORIENTATION: Yes alert Skin: COMMON NORMALS: no rashes or lesions noted GENERAL SKIN EXAM: no rashes or lesions noted Course ED course: 2209, 31-year-old female was given 10 mg of Reglan IV and started getting anxious and tearful. Patient was reassured that the medication most likely caused this reaction and she would improve as the Benadryl kicked in. After about 5 minutes patient did seem to be more relaxed and calm. CT of the head did not show any intracranial acute process. Patient was recommended to go home and rest. Patient called for a ride to drive her home. Vital Signs: Vital signs: Vital Signs Temperature 99.5 F 10/14/21 20:50 Pulse Rate 102 H 10/14/21 20:50 Respiratory Rate 14 10/14/21 20:50 Blood Pressure 98/63 10/14/21 20:50 Pulse Oximetry 98 10/14/21 20:50 MDM - Headache Medical Decision Making Patient came in today for concerns of migraine headache and numbness in the left arm. On exam patient had no focal neurodeficits. Equal strength in bilateral hands. Respirations were even lungs were clear to auscultation. Vital signs are normal. Differential diagnosis includes migraine headache, tension headache, headache secondary to CVA. CT of the head was unremarkable. Laboratory values were unremarkable. Patient was given a headache cocktail including 15 mg ketorolac, 25 mg diphenhydramine, 10 mg Reglan, and 10 mg dexamethasone. Patient had some increased anxiety after administration of medications which was most likely due to to the Reglan. This did improve but patient did need some reassurance and support until the Benadryl seem to relax the patient. Patient did have improvement in headache and patient was recommended to follow-up with primary care for further instructions. Patient reported understanding agreed to plan. Lab Data : 10/14/21 21:50 10/14/21 21:50 Laboratory Results WBC 8.8 10^3/uL (4.0-10.0) 10/14/21 21:50 RBC 4.76 10^6/uL (4.1-5.3) 10/14/21 21:50 Hgb 14.5 g/dL (11.5-15.3) 10/14/21 21:50 Hct 42.1 % (37.0-47.0) 10/14/21 21:50 MCV 88.4 fl (81-99) 10/14/21 21:50 MCH 30.5 pg (28.0-34.0) 10/14/21 21:50 MCHC 34.4 g/dL (30.0-36.0) 10/14/21 21:50 RDW 12.0 % (12.1-15.1) L 10/14/21 21:50 Plt Count 251 10^3/cmm (130-400) 10/14/21 21:50 MPV 10.4 fL (7.4-10.4) 10/14/21 21:50 Neut % (Auto) 51.6 % 10/14/21 21:50 Lymph % (Auto) 43.2 % 10/14/21 21:50 [place] % (Auto) 4.4 % 10/14/21 21:50 Eos % (Auto) 0.5 % 10/14/21 21:50 Baso % (Auto) 0.1 % 10/14/21 21:50 Neut # (Auto) 4.53 10^3/uL (1.8-7.7) 10/14/21 21:50 Lymph # (Auto) 3.8 10^3/uL (0.8-4.8) 10/14/21 21:50 [place] # (Auto) 0.4 10^3/uL (0.2-0.9) 10/14/21 21:50 Eos # (Auto) 0.0 10^3/uL (0.0-0.8) 10/14/21 21:50 Baso # (Auto) 0.0 10^3/uL (0.0-0.1) 10/14/21 21:50 Nucleated RBC % (auto) 0 % 10/14/21 21:50 Nucleated RBCs # 0.0 /100WBC 10/14/21 21:50 Sodium 139 mmol/L (136-145) 10/14/21 21:50 Potassium 3.7 mmol/L (3.5-5.1) 10/14/21 21:50 Chloride 102 mmol/L (98-107) 10/14/21 21:50 Carbon Dioxide 26 mmol/L (22-29) 10/14/21 21:50 Anion Gap 14.7 (5-19) 10/14/21 21:50 BUN 8 mg/dL (6-20) 10/14/21 21:50 Creatinine 0.6 mg/dL (0.5-0.9) 10/14/21 21:50 GFR Calculation 117.4 mL/min (90-130) 10/14/21 21:50 Glucose 92 mg/dL (65-115) 10/14/21 21:50 Calculated Osmolality 286 mOsm/kg (285-295) 10/14/21 21:50 Calcium 10.1 mg/dL (8.5-10.5) 10/14/21 21:50 HCG, Qual Negative (Negative) 10/14/21 21:50 Discharge Plan Discharge Patient Disposition: Home Clinical Impression: Migraine Condition: Stable Prescriptions: No Action acetaminophen [Tylenol] 325 mg capsule 325 mg PO QID PRN (Reason: Pain) 0RF folic acid 20 mg capsule 20 mg PO DAILY 0RF ondansetron HCl [Zofran] 4 mg tablet 4 mg PO Q8H PRN (Reason: Nausea) 0RF Nexplanon 68 mg implant See Rx Instructions .ROUTE .COMPLEX 0RF Label Comments: Placed 06/09/2020 Rx Instructions: 1 implant subdermally CONTINUOUS venlafaxine 150 mg capsule,extended release 24hr 150 mg PO DAILY Qty: 30 4RF Rx Instructions: Take 1 tablet daily with food. topiramate [Topamax] 50 mg tablet 50 mg PO DAILY 0RF FLOUXOTINE PO 0RF albuterol sulfate [Ventolin HFA] 90 mcg/actuation HFA aerosol inhaler 2 puff inhalation Q6H PRN (Reason: shortness of breath or wheezing) Qty: 8.5 0RF ferrous sulfate 325 mg (65 mg iron) tablet 325 mg PO DAILY 0RF amoxicillin 875 mg tablet 875 mg PO BID 7 Days Qty: 14 0RF ketorolac 10 mg tablet 10 mg PO TID PRN (Reason: pain) Qty: 10 0RF Discharge Orders: Discharge ED (Routine); Ordered 10/14/21 Ordered By: Con Nesbitt Referrals: Steven Walker MD [Primary Care Provider] - Patient Instructions: Migraine Headache (ED) Activity Restrictions/Additional Instructions: Home and rest. Drink plenty of fluids. Use acetaminophen or ibuprofen for pain. Follow-up with primary care. Coding Level of Care Code ED Ribbon Tier for Chg Fwd Exam Comprehensive
[2021-10-14 21:54] LABS: Basophils % 0.1 %; Eosinophils % 0.5 %; Hematocrit 42.1 % (37.0-47.0); Hemoglobin 14.5 g/dL (11.5-15.3); Lymphocytes # 3.8 10^3/uL (0.8-4.8); Lymphocytes % 43.2 %; Mean Corpuscular HGB Conc 34.4 g/dL (30.0-36.0); Mean Corpuscular Hemoglobin 30.5 pg (28.0-34.0); Mean Corpuscular Volume 88.4 fl (81-99); Mean Platelet Volume 10.4 fL (7.4-10.4); Monocytes # 0.4 10^3/uL (0.2-0.9); Monocytes % 4.4 %; Neutrophils # 4.53 10^3/uL (1.8-7.7); Neutrophils % 51.6 %; Nucleated Red Blood Cells % 0 %; Platelet Count 251 10^3/cmm (130-400); Red Blood Count 4.76 10^6/uL (4.1-5.3); White Blood Count 8.8 10^3/uL (4.0-10.0)
[2021-10-14] MEDS: ketorolac 30 mg/mL INJ 15 MG IVP (22:02)
[2021-10-14] MEDS: sodium chloride 0.9% 500 ML 999 ML IV (22:02)
[2021-10-14] MEDS: diphenhydrAMINE 50 mg/mL SDV 1mL 25 MG IVP (22:03)
[2021-10-14] MEDS: metoclopramide 5 mg/mL SDV 2 mL 10 MG IVP (22:03)
[2021-10-14] MEDS: dexamethasone 10 mg/mL INJ IVP (22:03)
[2021-10-14 22:10] LABS: Anion Gap 14.7 (5-19); Blood Urea Nitrogen 8 mg/dL (6-20); Calcium 10.1 mg/dL (8.5-10.5); Carbon Dioxide 26 mmol/L (22-29); Chloride 102 mmol/L (98-107); Glomerular Filtration Rate 117.4 mL/min (90-130); Glucose 92 mg/dL (65-115); HCG, Serum Qual Negative (Negative); Osmolality Calculated 286 mOsm/kg (285-295); Potassium 3.7 mmol/L (3.5-5.1); Sodium 139 mmol/L (136-145)
[2021-10-14 23:35] VITALS: BP 132/82; PULSE 80; RESP 20; O2SAT 98
== END 2021-10-14 23:37 | disposition home or self-care (01) ==
PROVIDERS: Emergency Provider Nurse Practitioner Family; PCP Family Medicine
DX: G43.909 Migraine, unspecified, not intractable, without status migrainosus (principal); Z86.73 Personal history of transient ischemic attack (TIA), and cerebral infarction without residual deficits; F41.9 Anxiety disorder, unspecified; T45.0X5A Adverse effect of antiallergic and antiemetic drugs, initial encounter
CPT/HCPCS: 70450; 80048; 84703; 85025; 96361; 96374; 96375; 99284; J1100; J1200; J1885; J2765; J7040

== ENCOUNTER → 2022-03-29 10:06 | Outpatient (BNVA) | payer MEDICAID, SELFPAY | PROVIDERS: PCP Family Medicine; Visit Provider Nurse Practitioner Family | DX: J02.9 Acute pharyngitis, unspecified (principal) | CPT/HCPCS: 87071; 87880 ==

== ENCOUNTER 2022-06-30 18:54 | Emergency (ER) | payer MEDICAID, SELFPAY ==
[2022-06-30 19:00] VITALS: PULSE 89; RESP 14; TEMP 36.9; O2SAT 97
--- NOTE | 2022-06-30 19:21 | W.ED.EXTPRO ---
HPI - Extremity Problem General: Chief complaint: Extremity Problem,Nontraumatic Stated complaint: left arm numbness/pins and needles Time Seen by Provider: 06/30/22 19:00 History of Present Illness: Ms. Mayberry is a 31-year-old lady with complex history including stroke that occurredIn the context of labor and COVID April 2020 presenting to the emergency department due to abnormal feeling in the left upper extremity. Prior stroke did affect the left upper extremity though this feels different. Onset was a few days ago and has been intermittent. No specific known provoking events. She endorses weakness, sensory changes, and at times pain as well as decreased dexterity. Initially thought this was related to a prior stroke however it is progressed. Intensity symptoms is currently mild to moderate. No other specific changes in health, exacerbating, or alleviating factors identified. Onset (ago): day(s) Pain Consistency: intermittent Location: left and upper extremity Quality: aching and sharp Radiation: none Relieving factors: nothing Exacerbating factors: nothing Associated symptoms: Reports no associated symptoms Review of Systems General: Reports: 10 or more systems reviewed and unremarkable except in HPI and below PFSH ED PFSH: Medical History Cerebrovascular accident Cough Migraine headache Surgical History S/P section (04/27/20) RLTCS. Performed by Dr. Lopez at [facility] S/P laparoscopic cholecystectomy (~10/2019) Was at the time. S/P primary low transverse (08/03/14) Performed by Dr. Lopez at [facility] in [place], [place]. Confirmed LTCS with 2 layer closure. Family History Denies family history of Diabetes Anesthesia complication Bleeding disorder Hypertension Stroke Social History Smoking and tobacco status: former smoker Quit status (tobacco): has quit using tobacco Year quit tobacco: 04/2019 Former quit date comment: Was smoking 1 PPD until switched to vaping in 2017. Quit in 04/2019. Alcohol intake: never Female Reproductive History: Date of last menstrual period: 03/21/21 Para: 1 Spontaneous abortions: No Physical Exam Const: COMMON NORMALS: patient oriented x3 and alert GENERAL APPEARANCE: cooperative and well developed HENMT: COMMON NORMALS: normocephalic and atraumatic HEAD & SCALP: normocephalic and atraumatic THROAT: posterior oropharynx normal Eye: COMMON NORMALS: conjunctivae normal CONJUNCTIVA: Yes conjunctivae normal SCLERA: sclerae normal Neck/C-Spine: COMMON NORMALS: supple GENERAL: Yes trachea midline Resp: COMMON NORMALS: normal respiratory effort EFFORT & INSPECTION: Yes able to speak in complete sentences Cardio: COMMON NORMALS: regular rate and regular rhythm RATE: regular rate RHYTHM: regular rhythm GI: COMMON NORMALS: Soft to palpation PALPATION: Yes Soft to palpation and No Tenderness to palpation present (GI) PERCUSSION: normal to percussion Extremity: GENERAL: Yes normal exam except as noted and No edema Neuro: COMMON NORMALS: patient oriented x3, CN's II-XII intact bilaterally and moves all extremities SENSORIUM/ORIENTATION: Yes alert and No Orientation impaired OTHER: Left upper extremity 75% sensation compared to contralateral side, 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 No focal other changes identified on exam with exception of as noted above. Given time of onset and NIHSS patient is not a candidate for tPA. Hematologic panel without significant abnormality. Metabolic panel without significant abnormality. Hematuria without evidence of urinary tract infection. CT head negative for acute pathology to explain symptoms. Negative x-ray. Extensive review performed prior imaging and notes. Appears that symptoms may been secondary to PRES or encephalitis less to stroke though stroke missed on MRI is always a possibility. It is very odd that the patient has continued symptoms and patient requires further outpatient evaluation by neurology. Patient mildly improved with fluids, Flexeril, Toradol. Most likely etiology of patient symptoms is uncertain. The results of ED evaluation were discussed with the patient including prescriptions and/or symptomatic cares (if applicable) including appropriate and responsible use, followup plan, and return precautions. The patient verbalized understanding and felt safe for discharge. Medical Records I reviewed the patient's medical records. Lab Data I reviewed the patient's lab results. 06/30/22 19:35 06/30/22 19:[address] 06/30/22 19:36 IMPRESSION: 1. Severe right maxillary sinus disease. 2. No acute intracranial findings. Shoulder X-Ray 06/30/22 19:36 IMPRESSION: No acute findings. Laboratory Results WBC 7.9 10^3/uL (4.0-10.0) 06/30/22 19:35 RBC 4.27 10^6/uL (4.1-5.3) 06/30/22 19:35 Hgb 13.2 g/dL (11.5-15.3) 06/30/22 19:35 Hct 38.5 % (37.0-47.0) 06/30/22 19:35 MCV 90.2 fl (81-99) 06/30/22 19:35 MCH 30.9 pg (28.0-34.0) 06/30/22 19:35 MCHC 34.3 g/dL (30.0-36.0) 06/30/22 19:35 RDW 11.7 % (12.1-15.1) L 06/30/22 19:35 Plt Count 227 10^3/cmm (130-400) 06/30/22 19:35 MPV 10.9 fL (7.4-10.4) H 06/30/22 19:35 Neut % (Auto) 38.5 % 06/30/22 19:35 Lymph % (Auto) 54.3 % 06/30/22 19:35 [place] % (Auto) 6.2 % 06/30/22 19:35 Eos % (Auto) 0.6 % 06/30/22 19:35 Baso % (Auto) 0.1 % 06/30/22 19:35 Neut # (Auto) 3.05 10^3/uL (1.8-7.7) 06/30/22 19:35 Lymph # (Auto) 4.3 10^3/uL (0.8-4.8) 06/30/22 19:35 [place] # (Auto) 0.5 10^3/uL (0.2-0.9) 06/30/22 19:35 Eos # (Auto) 0.1 10^3/uL (0.0-0.8) 06/30/22 19:35 Baso # (Auto) 0.0 10^3/uL (0.0-0.1) 06/30/22 19:35 Nucleated RBC % (auto) 0 % 06/30/22 19:35 Nucleated RBCs # 0.0 /100WBC 06/30/22 19:35 Sodium 138 mmol/L (136-145) 06/30/22 19:35 Potassium 3.9 mmol/L (3.5-5.1) 06/30/22 19:35 Chloride 105 mmol/L (98-107) 06/30/22 19:35 Carbon Dioxide 23 mmol/L (22-29) 06/30/22 19:35 Anion Gap 13.9 (5-19) 06/30/22 19:35 BUN 12 mg/dL (6-20) 06/30/22 19:35 Creatinine 0.5 mg/dL (0.5-0.9) 06/30/22 19:35 GFR Calculation 144.9 mL/min (90-130) H 06/30/22 19:35 Glucose 82 mg/dL (65-115) 06/30/22 19:35 Calculated Osmolality 285 mOsm/kg (285-295) 06/30/22 19:35 Calcium 9.7 mg/dL (8.5-10.5) 06/30/22 19:35 Total Bilirubin 0.2 mg/dL (0.15-1.2) 06/30/22 19:35 AST 20 U/L (0-32) 06/30/22 19:35 ALT 30 U/L (0-33) 06/30/22 19:35 Alkaline Phosphatase 71 U/L (35-105) 06/30/22 19:35 Total Protein 7.1 g/dL (6.6-8.7) 06/30/22 19:35 Albumin 4.3 g/dL (3.5-5.2) 06/30/22 19:35 Globulin 2.8 g/dL (1.3-4.6) 06/30/22 19:35 TSH 2.01 uIU/mL (0.27-4.20) 06/30/22 19:35 HCG, Qual Negative (Negative) 06/30/22 20:34 Urine Color Yellow (Yellow) 06/30/22 20:34 Urine Appearance Clear (CLEAR) 06/30/22 20:34 Urine pH 5 (5-7) 06/30/22 20:34 Ur Specific [place] 1.030 (1.005-1.030) 06/30/22 20:34 Urine Protein Neg (Negative) 06/30/22 20:34 Urine Glucose (UA) Norm (Normal) 06/30/22 20:34 Urine Ketones Negative (Negative) 06/30/22 20:34 Urine Blood 2+ (Negative) H 06/30/22 20:34 Urine Nitrate Negative (Negative) 06/30/22 20:34 Urine Bilirubin Neg (Negative) 06/30/22 20:34 Urine Urobilinogen Norm mg/dL (Negative) 06/30/22 20:34 Ur Leukocyte Esterase Negative (Negative) 06/30/22 20:34 Urine RBC 0-4 /hpf (0-2) H 06/30/22 20:34 Urine WBC None /hpf (0-5) 06/30/22 20:34 Ur Squamous Epith Cells 5-10 /hpf (0-5) H 06/30/22 20:34 Amorphous Sediment 1+ /hpf 06/30/22 20:34 Urine Bacteria None /hpf (NONE) 06/30/22 20:34 Urine Mucus 1+ /hpf 06/30/22 20:34 Discharge Plan Discharge Patient Disposition: Home Clinical Impression: Paresthesia and pain of left extremity Condition: Stable Prescriptions: No Action folic acid 20 mg capsule 20 mg PO DAILY Nexplanon 68 mg implant See Rx Instructions .ROUTE .COMPLEX Label Comments: Placed 06/09/2020 Rx Instructions: 1 implant subdermally CONTINUOUS topiramate [Topamax] 50 mg tablet 50 mg PO DAILY Qty: 30 0RF Rx Instructions: 30 days for provider fluoxetine 20 mg tablet 20 mg PO DAILY Qty: 30 0RF Rx Instructions: 30 days for provider visit albuterol sulfate [Ventolin HFA] 90 mcg/actuation HFA aerosol inhaler 2 puff inhalation Q6H PRN (Reason: shortness of breath or wheezing) Qty: 8.5 0RF ferrous sulfate 325 mg (65 mg iron) tablet 325 mg PO DAILY Qty: 90 0RF penicillin V potassium 500 mg tablet 500 mg PO BID 10 Days Qty: 20 0RF Discharge Orders: Discharge ED (Routine); Ordered 06/30/22 Ordered By: Jose Daniel Corrales Referrals: Steven Walker MD [Primary Care Provider] - Discharge Diet: Usual diet Discharge Activity: Increase activity as tolerated Patient Instructions: Paresthesia (ED) Activity Restrictions/Additional Instructions: Thank you for visiting the emergency department. You were seen and evaluated for left upper extremity symptoms. The exact cause of your symptoms is unclear. I do not believe that you need hospitalization at this time. I will message case management for follow-up with neurology. Return to the emergency department for any new neurologic symptoms or anything else that you are concerned about a feel needs emergency department evaluation. Coding Level of Care Code ED Supervisor Forming And Tempering for Molly Fwd Exam Comprehensive
--- NOTE | 2022-06-30 19:36 | XRR_ITS ---
PROCEDURE INFORMATION: Exam: XR Left Shoulder Exam date and time: 06/30/2022 7:41 PM Age: 31 years old Clinical indication: Pain; Shoulder; Left; Additional info: Arm paresthesias TECHNIQUE: Imaging protocol: Radiologic exam of the Left shoulder. Views: 2 or more views. COMPARISON: CR XR chest 1V portable [id number] 11/12/2020 8:04 AM FINDINGS: Bones/joints: Normal. Soft tissues: Normal. XR/XR shoulder LT min 2V* [id number] IMPRESSION: No acute findings.
--- NOTE | 2022-06-30 19:36 | CTR_ITS ---
PROCEDURE INFORMATION: Exam: CT Head Without Contrast Exam date and time: 06/30/2022 7:55 PM Age: 31 years old Clinical indication: Weakness, extremity; Left; Additional info: L arm neuro symptoms, HX stroke TECHNIQUE: Imaging protocol: Computed tomography of the head without contrast. Radiation optimization: All CT scans at this facility use at least one of these dose optimization techniques: automated exposure control; mA and/or kV adjustment per patient size (includes targeted exams where dose is matched to clinical indication); or iterative reconstruction. COMPARISON: CT head wo con* [id number] 10/14/2021 9:29 PM RADIATION DOSE METRICS: Total DLP (mGy-cm): 986.98 FINDINGS: Brain: Normal. No hemorrhage. Unremarkable white matter. No mass effect. Cerebral ventricles: No ventriculomegaly. Paranasal sinuses: Severe right maxillary sinus disease. Mastoid air cells: Visualized mastoid air cells are well aerated. Bones/joints: Unremarkable. No acute fracture. Soft tissues: Unremarkable. CT/CT head wo con* [id number] IMPRESSION: 1. Severe right maxillary sinus disease. 2. No acute intracranial findings.
[2022-06-30 19:48] LABS: Basophils % 0.1 %; Eosinophils # 0.1 10^3/uL (0.0-0.8); Eosinophils % 0.6 %; Hematocrit 38.5 % (37.0-47.0); Hemoglobin 13.2 g/dL (11.5-15.3); Lymphocytes # 4.3 10^3/uL (0.8-4.8); Lymphocytes % 54.3 %; Mean Corpuscular HGB Conc 34.3 g/dL (30.0-36.0); Mean Corpuscular Hemoglobin 30.9 pg (28.0-34.0); Mean Corpuscular Volume 90.2 fl (81-99); Mean Platelet Volume 10.9 fL (7.4-10.4); Monocytes # 0.5 10^3/uL (0.2-0.9); Monocytes % 6.2 %; Neutrophils # 3.05 10^3/uL (1.8-7.7); Neutrophils % 38.5 %; Nucleated Red Blood Cells % 0 %; Platelet Count 227 10^3/cmm (130-400); Red Blood Count 4.27 10^6/uL (4.1-5.3); Red Cell Distribution Width 11.7 % (12.1-15.1); White Blood Count 7.9 10^3/uL (4.0-10.0)
[2022-06-30] MEDS: sodium chloride 0.9% 1,000 ML 999 ML IV (20:02)
[2022-06-30 20:21] LABS: Alanine Aminotransferase 30 U/L (0-33); Albumin Level 4.3 g/dL (3.5-5.2); Alkaline Phosphatase 71 U/L (35-105); Anion Gap 13.9 (5-19); Aspartate Amino Transferase 20 U/L (0-32); Blood Urea Nitrogen 12 mg/dL (6-20); Calcium 9.7 mg/dL (8.5-10.5); Carbon Dioxide 23 mmol/L (22-29); Chloride 105 mmol/L (98-107); Creatinine Clr Calc Pharmacy 148.4718; Globulin 2.8 g/dL (1.3-4.6); Glomerular Filtration Rate 144.9 mL/min (90-130); Glucose 82 mg/dL (65-115); Osmolality Calculated 285 mOsm/kg (285-295); Potassium 3.9 mmol/L (3.5-5.1); Sodium 138 mmol/L (136-145); Thyroid Stimulating Hormone 2.01 uIU/mL (0.27-4.20); Total Bilirubin 0.2 mg/dL (0.15-1.2); Total Protein 7.1 g/dL (6.6-8.7)
[2022-06-30 20:59] LABS: HCG Qualitative Urine. Negative (Negative)
[2022-06-30 21:03] VITALS: BP 104/74; PULSE 81; RESP 16; O2SAT 96
[2022-06-30 21:20] LABS: Add Urine Culture? No; Add Urine Microscopic? YES; Amorphous Sediment Urine 1+ /hpf; Bilirubin Urine Neg (Negative); Blood Urine 2+ (Negative); Glucose Urine UA Norm (Normal); Ketones Urine Negative (Negative); Leukocyte Esterase Urine Negative (Negative); Mucus Urine 1+ /hpf; Nitrate Urine Negative (Negative); Protein Urine Neg (Negative); RBC Urine 0-4 /hpf (0-2); Urine Appearance Clear (CLEAR); Urine Color Yellow (Yellow); Urobilinogen Urine Norm (Negative); pH Urine 5 (5-7)
[2022-06-30] MEDS: ketorolac 30 mg/mL INJ 15 MG IVP (21:27)
[2022-06-30] MEDS: cyclobenzaprine 10 mg Tablet PO (21:27)
[2022-06-30 22:19] VITALS: BP 97/59; PULSE 70; RESP 14; O2SAT 96
--- NOTE | 2022-07-01 09:21 | DCPLANNER ---
Addendum entered by Gege Soto 09/08/22 08:03: Patient had a follow up appointment scheduled with neurology - patient did not attend appointment Addendum entered by Gege Soto 07/02/22 14:27: Patient has a follow up appointment scheduled for Tuesday, August 25, 2022 at 12:[address] Blunt at neurology. Clinic will call patient with appointment information. Original Note: equipment hire manager had message to schedule a follow up appointment for patient with neurology. equipment hire manager sent patients information to the front office staff at neurology. Patients information will be printed and reviewed. Clinic will call patient with appointment information.
== END 2022-06-30 22:08 | disposition home or self-care (01) ==
PROVIDERS: Emergency Provider Emergency Medicine; PCP Family Medicine
DX: R20.2 Paresthesia of skin (principal); M79.602 Pain in left arm; Z87.891 Personal history of nicotine dependence; Z86.73 Personal history of transient ischemic attack (TIA), and cerebral infarction without residual deficits
CPT/HCPCS: 70450; 73030; 80053; 81001; 81025; 84443; 85025; 96361; 96374; 99285; J1885; J7030

== ENCOUNTER → 2022-09-10 13:52 | Outpatient (BNVA) | payer MEDICAID, SELFPAY | PROVIDERS: PCP Family Medicine; Visit Provider Nurse Practitioner Family | DX: J02.9 Acute pharyngitis, unspecified (principal); J02.0 Streptococcal pharyngitis | CPT/HCPCS: 87880 ==

== ENCOUNTER 2023-05-07 07:44 | Emergency (ER) | payer MEDICAID, SELFPAY ==
[2023-05-07 07:49] VITALS: BP 111/56; PULSE 96; RESP 18; TEMP 36.9; O2SAT 98; BMI 27.8
--- NOTE | 2023-05-07 08:13 | XRR_ITS ---
PROCEDURE INFORMATION: Exam: XR Complete Acute Abdomen Series Including Chest Exam date and time: 05/07/2023 8:24 AM Age: 32 years old Clinical indication: Other: Swallowed a tooth from denture; Patient HX: Had to repeat xrays so 5 pics total; Additional info: Fb swallowed TECHNIQUE: Imaging protocol: Radiologic exam. Complete acute abdomen series, including 2 or more views of the abdomen and a single view chest. COMPARISON: CR XR chest 1V portable [id number] 11/12/2020 8:04 AM FINDINGS: Lungs: Unremarkable. No consolidation. Pleural spaces: Unremarkable. No pleural effusions. No pneumothorax. Heart/Mediastinum: Unremarkable. No cardiomegaly. Gastrointestinal tract: No air-filled dilated bowel loops or evidence of bowel thickening. No retained radiopaque foreign body visualized. Intraperitoneal space: No evidence of free air. Right upper abdomen surgical clips. Bones/joints: Unremarkable. No acute fracture. Soft tissues: Unremarkable. XR/XR acute abdomen series [id number] IMPRESSION: No acute findings. No retained radiopaque foreign body along the imaged aerodigestive tract.
--- NOTE | 2023-05-07 09:17 | ED_ITS ---
HPI - Dental/Oral General: Chief complaint: Dental/Oral Stated complaint: possibly swolled part of denture Time Seen by Provider: 05/07/23 08:09 History of Present Illness: This patient is a 32-year-old white female who presents to the emergency department stating that she is concerned she may have swallowed a piece of her partial denture last night while sleeping. She states that she thought she bit down on this during her sleep. She tried to find the missing teeth on the dent ure and could not locate them so she assumed that she swallowed the piece. She does not have any sensation of a foreign body in her throat, chest or abdomen. Review of Systems General: Reports: 10 or more systems reviewed and unremarkable except in HPI and below PFSH ED 2 PFSH: Medical History Cerebrovascular accident Cough Migraine headache Surgical History S/P section (04/27/20) RLTCS. Performed by Dr. Lopez at [facility] S/P laparoscopic cholecystectomy (~10/2019) Was at the time. S/P primary low transverse (08/03/14) Performed by Dr. Lopez at [facility] in [place], [place]. Confirmed LTCS with 2 layer closure. Family History Denies family history of Diabetes Anesthesia complication Bleeding disorder Hypertension Stroke Social History Smoking and tobacco/nicotine status: former use of tobacco/nicotine Quit status (tobacco/nicotine): has quit using Year quit tobacco: 04/2019 Former quit date comment: Was smoking 1 PPD until switched to vaping in 2018. Quit in 04/2019. Alcohol intake: never Substance/Drug Use: never Female Reproductive History: Para: 1 Spontaneous abortions: No Physical Exam Const: COMMON NORMALS: no acute distress, patient oriented x3 and no limitations GENERAL APPEARANCE: cooperative and comfortable HENMT: COMMON NORMALS: normocephalic, atraumatic, Normal nasal mucous membranes and turbinates present, moist oral mucous membranes and oropharynx normal HEAD & SCALP: normal to inspection, normocephalic and atraumatic FACE & SINUS: normal facial exam NOSE: Normal nasal mucous membranes and tu rbinates present Eye: COMMON NORMALS: Equal, round and reactive pupils present, EOMs intact bilaterally and conjunctivae normal GENERAL EYE: appearance normal, both eyes and all related structures CONJUNCTIVA: Yes conjunctivae normal PUPIL: Yes Equal, round and reactive pupils present Neck/C-Spine: COMMON NORMALS: supple and no JVD Chest: COMMONS NORMALS: normal inspection of the chest Resp: COMMON NORMALS: normal respiratory effort and clear to auscultation bilaterally AUSCULTATION: clear to auscultation bilaterally Cardio: COMMON NORMALS: no JVD, regular rate, regular rhythm, No gallops present (Cardio), No murmurs present (Cardio) and No rub (Cardio) RATE: regular rate RHYTHM: regular rhythm GI: COMMON NORMALS: Normal to inspection, nondistended, normoactive bowel sounds present, Soft to palpation and non-tender AUSCULTATION: Yes normoactive bowel sounds PALPATION: Yes Soft to palpation : COMMON NORMALS: Yes no CVA tenderness BLADDER/KIDNEY EXAM: Yes no CVA tenderness Back/Pelvis: COMMON NORMALS: no CVA tenderness and thoracic and lumbar spine normal to inspection Extremity: COMMON NORMALS: normal to inspection Neuro: COMMON NORMALS: patient oriented x3 and CN's II-XII intact bilaterally Psych: COMMON NORMALS: mental status grossly normal, Normal thought process present and cooperative THOUGHT PROCESS: Normal thought process present Skin: COMMON NORMALS: no rashes or lesions noted, turgor normal and no jaundice GENERAL SKIN EXAM: no rashes or lesions noted and turgor normal Course Vital Signs: Vital signs: Vital Signs Temperature 98.4 F 05/07/23 07:49 Pulse Rate 96 05/07/23 07:49 Respiratory Rate 18 05/07/23 07:49 Blood Pressure 111/56 05/07/23 07:49 Pulse Oximetry 98 05/07/23 07:49 Oxygen Delivery Me thod Room Air 05/07/23 07:49 MDM - Dental/Oral Medical Decision Making X-rays did not reveal any evidence of radiopaque foreign body. Recommended patient follow-up with her dentist. She was discharged in stable condition. Lab Data Radiology Impressions Chest/Abdomen X-ray 05/07/23 08:13 IMPRESSION: No acute findings. No retained radiopaque foreign body along the imaged aerodigestive tract. All radiology interpretation(s) finalized by discharge Discharge Plan Discharge Patient Disposition: Home Clinical Impression: Fracture of removable partial denture Condition: Stable Prescriptions: No Action folic acid 20 mg capsule 20 mg PO DAILY fluoxetine 20 mg tablet 20 mg PO DAILY Qty: 30 0RF Rx Instructions: 30 days for provider visit albuterol sulfate [Ventolin HFA] 90 mcg/actuation HFA aerosol inhaler 2 puff inhalation Q6H PRN (Reason: shortness of breath or wheezing) Qty: 8.5 0RF ferrous sulfate 325 mg (65 mg iron) tablet 325 mg PO DAILY Qty: 90 0RF Discharge Orders: Discharge ED (Routine); Ordered 05/07/23 Ordered By: Nimesh Foster Referrals: Steven Walker MD [Primary Care Provider] - Patient Instructions: Opioid Safety, Pain Management Coding Level of Care Code ED Account Services Associate for Molly Miles
== END 2023-05-07 09:40 | disposition home or self-care (01) ==
PROVIDERS: Emergency Provider Emergency Medicine; PCP Family Medicine
DX: K08.531 Fractured dental restorative material with loss of material (principal); Z86.73 Personal history of transient ischemic attack (TIA), and cerebral infarction without residual deficits; Z87.891 Personal history of nicotine dependence
CPT/HCPCS: 74022; 99283

== ENCOUNTER 2023-06-02 03:30 | Emergency (ER) | payer MEDICAID, SELFPAY ==
[2023-06-02 03:34] VITALS: BP 109/75; PULSE 76; RESP 14; TEMP 37.1; O2SAT 99
--- NOTE | 2023-06-02 03:43 | ED_ITS ---
HPI - Dental/Oral General: Chief complaint: Dental/Oral Stated complaint: dental pain Time Seen by Provider: 06/02/23 03:32 History of Present Illness: Patient presents to the ER with complaints of right upper molar dental pain. Patient states this started a few days ago and has only been worse. Patient is tried [id number] ibuprofen and naproxen but this does not seem to help. Patient states that radiates up to her ear. Review of Systems General: Reports: 10 or more systems reviewed and unremarkable except in HPI and below PFSH ED PFSH: Medical History Cough Cerebrovascular accident Migraine headache Surgical History S/P section (04/27/20) RLTCS. Performed by Dr. Lopez at [facility] S/P laparoscopic cholecystectomy (~10/2019) Was at the time. S/P primary low transverse (08/03/14) Performed by Dr. Lopez at [facility] in [place], [place]. Confirmed LTCS with 2 layer closure. Family History Denies family history of Diabetes Anesthesia complication Bleeding disorder Hypertension Stroke Social History Smoking and tobacco/nicotine status: former use of tobacco/nicotine Quit status (tobacco/nicotine): has quit using Year quit tobacco: 04/2019 Former quit date comment: Was smoking 1 PPD until switched to vaping in 2017. Q uit in 04/2019. Alcohol intake: never Substance/Drug Use: never Female Reproductive History: Para: 1 Spontaneous abortions: No Physical Exam Const: COMMON NORMALS: no acute distress, average body habitus, patient oriented x3, no limitations, healthy appearing, alert and well nourished HENMT: COMMON NORMALS: normocephalic, atraumatic, hearing grossly normal bilaterally, external ears normal, Normal external nose present, moist oral mucous membranes and oropharynx normal; dentition not normal (Broken right upper rear molar) HEAD & SCALP: normocephalic and atraumatic NOSE: Normal external nose present EXTERNAL EAR: Yes external ears normal Neck/C-Spine: COMMON NORMALS: full ROM, no lymphadenopathy, supple, no meningeal signs, no JVD and Thyroid normal THYROID: Thyroid normal Chest: COMMONS NORMALS: normal inspection of the chest and normal palpation of entire chest wall Resp: COMMON NORMALS: normal respiratory effort, No retractions, No use of accessory muscles and clear to auscultation bilaterally AUSCULTATION: clear to auscultation bilaterally Cardio: COMMON NORMALS: no JVD, regular rate, regular rhythm, S1 normal heart sound present, S2 normal heart sound present, No gallops present (Cardio), No clicks present (Cardio), No murmurs present (Cardio) and No rub (Cardio) RATE: regular rate RHYTHM: regular rhythm HEART SOUNDS: S1 normal heart sound present and S2 normal heart sound present Neuro: COMMON NORMALS: patient oriented x3 SENSORIUM/ORIENTATION: Yes alert MENINGEAL SIGNS: Yes no meningeal signs Course Vital Signs: Vital signs: Vital Signs Temperature 98.7 F 06/02/23 03:34 Pulse Rate 76 06/02/23 03:34 Respiratory Rate 14 06/02/23 03:34 Blood Pressure 109/75 06/02/23 03:34 Pulse Oximetry 99 06/02/23 03:34 MDM - Dental/Oral Medical Decision Making Patient has a broken right upper molar causing her problems. Will place the patient on antibiotics and give her a shot of Toradol here in ER. Patient is to follow-up with a dentist for further definitive treatment. Differential Diagnosis Likely fracture of tooth; Unlikely gingival abscess, dental caries, toothache, dental abscess or aphthous ulcer Medical Records I reviewed the patient's medical records. Lab Data I reviewed the patient's lab results. No radiology studies performed this visit Discharge Plan Discharge Patient Disposition: Home Clinical Impression: Dental caries, Fracture of tooth Condition: Stable Prescriptions: No Action folic acid 20 mg capsule 20 mg PO DAILY fluoxetine 20 mg tablet 20 mg PO DAILY Qty: 30 0RF Rx Instructions: 30 days for provider visit albuterol sulfate [Ventolin HFA] 90 mcg/actuation HFA aerosol inhaler 2 puff inhalation Q6H PRN (Reason: shortness of breath or wheezing) Qty: 8.5 0RF ferrous sulfate 325 mg (65 mg iron) tablet 325 mg PO DAILY Qty: 90 0RF Discharge Orders: Discharge ED (Routine); Ordered 06/02/23 Ordered By: Timmy Navarro Referrals: Steven Walker MD [Primary Care Provider] - 1 week Patient Instructions: Dental Caries (Cavities) Activity Restrictions/Additional Instructions: Please take all your antibiotics as directed. Please follow-up with your family practice physician and/or dentist for further evaluation and definitive treatment. Coding Level of Care Code ED Hair Spring Winder for Molly Miles
[2023-06-02] MEDS: amoxicillin 500 mg Capsule PO (03:54)
[2023-06-02] MEDS: ketorolac 60 mg/2 mL INJ IM (03:54)
[2023-06-02 04:07] VITALS: BP 109/75; PULSE 76; RESP 14; TEMP 37.1; O2SAT 99
== END 2023-06-02 04:08 | disposition home or self-care (01) ==
PROVIDERS: Emergency Provider Emergency Medicine; PCP Family Medicine
DX: K02.9 Dental caries, unspecified (principal); S02.5XXA Fracture of tooth (traumatic), initial encounter for closed fracture; Z87.891 Personal history of nicotine dependence; Z86.73 Personal history of transient ischemic attack (TIA), and cerebral infarction without residual deficits; X58.XXXA Exposure to other specified factors, initial encounter
CPT/HCPCS: 96372; 99284; J1885

== ENCOUNTER 2024-03-29 10:33 | Observation (INO) | payer SELFPAY ==
[2024-03-29] VITALS (10 sets, daily range): BP systolic 92–120; BP diastolic 48–80; PULSE 70–89; RESP 14–18; TEMP 36.4–37.1; O2SAT 96–100; BMI 27.9; BMI 27.4
--- NOTE | 2024-03-29 11:06 | CT_ITS ---
WS: [id number] CT ABDOMEN AND PELVIS WITH CONTRAST HISTORY: abd pain, right-sided TECHNIQUE: Imaging performed of the abdomen and pelvis with IV contrast. Single phase imaging of the abdomen. Coronal and sagittal reformats are submitted. All CT scans at [facility] use at [address] one of these dose optimization techniques: automated exposure control; mA and/or kV adjustment per patient size (includes targeted exams where dose is matched to clinical indication); or iterative re construction. IV CONTRAST: Omnipaque 350; 100 mL IV. Oral contrast: No DLP: 643.56 mGy.cm COMPARISON: 04/19/2018 Lower thorax: Lung bases are clear. Heart is normal size. No hiatal hernia. Liver/biliary system: Normal size with no intrahepatic dilatation. Gallbladder: Status post cholecystectomy. Pancreas: Normal size pancreas and pancreatic duct. No adjacent inflammation. Spleen: Normal size spleen. No mass or infarct. Adrenal glands: Normal RIGHT adrenal gland. 8 mm low-attenuation nodule associated with the LEFT adre nal gland. Too small to characterize but with no history of malignancy this is probably an adenoma. Right kidney: Normal. Left kidney: Normal. Aorta: Normal. Lymphadenopathy: None. Free fluid: There is a small amount of fluid in the RIGHT adnexa. GI tract: There is a small amount of inflammation in the RIGHT lower quadrant. There is a small amoun t of inflammation centered at the very base of the. Is very slightly dilated to 6.5 mm at the base. N o perforation. Abdominal wall: Unremarkable abdominal wall. No hernia. Pelvis: The RIGHT ovary is slightly enlarged containing several follicles. Ovary measures 4.8 x 3.2 x 4.7 cm. There is increased enhancement of the vascular pedicle. There is also a small amount of lucrecia a and venous congestion. No hemorrhage. The RIGHT ovary is still enhancing. Bones: Mild scoliosis. CT/CT abdomen pelvis w con* [id number] IMPRESSION: 1. Acute inflammatory process centered in the RIGHT lower quadrant. The exact etiology is not determined. 2. There is some inflammation at the base of the appendix but only mild dilata tion of the appendix. Could potentially represent early acute appendicitis. 3. There is additional mild enlargement of the RIGHT ovary with follicles and increased vascularity involving the ovarian pedicle. This is a new finding sinc e 2018. Possibility of ovarian torsion should be considered. Consider transvagi nal pelvic ultrasound imaging. 4. No abscess.
[2024-03-29 11:16] LABS: Basophils % 0.1 %; Eosinophils # 0.1 10^3/uL (0.0-0.8); Eosinophils % 1.1 %; Lymphocytes # 2.9 10^3/uL (0.8-4.8); Lymphocytes % 38.6 %; Mean Corpuscular HGB Conc 32.8 g/dL (30-55); Mean Corpuscular Hemoglobin 30.8 pg (27-33); Mean Corpuscular Volume 93.8 fl (85-98); Mean Platelet Volume 10.3 fL (7.4-10.4); Monocytes # 0.5 10^3/uL (0.2-0.9); Monocytes % 6.6 %; Neutrophils # 4.04 10^3/uL (1.8-7.7); Neutrophils % 53.1 %; Nucleated Red Blood Cells % 0 %; Platelet Count 241 10^3/cmm (157-399); Red Blood Count 4.16 10^6/uL (3.85-5.65); Red Cell Distribution Width 11.9 % (12.1-15.1)
--- NOTE | 2024-03-29 11:19 | W.ED.ABDPA2 ---
HPI - Abdominal Pain General: Chief Complaint: Abdominal Pain Stated Complaint: abd pain Time Seen by Provider: 03/29/24 10:43 History of Present Illness: 33-year-old female comes into the emergency room complaining of right lower quadrant abdominal pain and tenderness with severe nausea. Fever at home as well. She has previously had a cholecystectomy. She denies any medic easy melena hematemesis coffee-ground emesis no dysuria urgency or frequency. Associated Symptoms: Reports chills, fever(s) and nausea; Denies dysuria Related Data Home Medications Medication Instructions Recorded Confirmed No Known Home Medications 03/29/24 03/29/24 Allergies Allergy/AdvReac Type Severity Reaction Status Date / Time metoclopramide [From Reglan] Allergy ADR-Anxiety Verified 01/26/24 10:34 Review of Systems Const: Reports: fever(s), chills and malaise Card: Denies: chest pain Resp: Denies: dyspnea GI: Reports: abdominal pain and nausea : Denies: dysuria, urinary frequency or urinary urgency Musc: Denies: neck pain or back pain Skin/Breast: Denies: rash PFSH ED PFSH: Medical History Cough Cerebrovascular accident Migraine headache Surgical History S/P section (04/27/20) RLTCS. Performed by Dr. Lopez at [facility] S/P laparoscopic cholecystectomy (~10/2019) Was at the time. S/P primary low transverse (08/03/14) Performed by Dr. Lopez at [facility] in [place], [place]. Confirmed LTCS with 2 layer closure. Family History Denies family history of Diabetes Anesthesia complication Bleeding disorder Hypertension Stroke Social History Smoking and tobacco/nicotine status: former use of tobacco/nicotine Quit status (tobacco/nicotine): has quit using Year quit tobacco: 04/2019 Former quit date comment: Was smoking 1 PPD until switched to vaping in 2017. Quit in 04/2019. Alcohol intake: never Substance/Drug Use: never Female Reproductive History: Para: 1 Spontaneous abortions: No Physical Exam Const: GENERAL APPEARANCE: cooperative ORIENTATION/CONSCIOUSNESS: Yes awake, Yes oriented to person, Yes oriented to place and Yes oriented to time HENMT: COMMON NORMALS: normocephalic, atraumatic and hearing grossly normal bilaterally HEAD & SCALP: normocephalic and atraumatic Resp: COMMON NORMALS: normal respiratory effort, No retractions, No use of accessory muscles and clear to auscultation bilaterally AUSCULTATION: clear to auscultation bilaterally Cardio: COMMON NORMALS: regular rate, regular rhythm and No murmurs present (Cardio) RATE: regular rate RHYTHM: regular rhythm GI: COMMON NORMALS: No hepatosplenomegaly present PALPATION: Yes Tenderness to palpation present (GI) Details: RLQ, No Guarding due to palpation present (GI) and Yes No hepatosplenomegaly present Extremity: COMMON NORMALS: normal to inspection, capillary refill normal, no clubbing, cyanosis or edema, no calf tenderness and no pedal edema Neuro: SENSORIUM/ORIENTATION: Yes oriented to person, Yes oriented to place and Yes oriented to time Skin: COMMON NORMALS: no rashes or lesions noted GENERAL SKIN EXAM: no rashes or lesions noted Course Vital Signs: Vital signs: Vital Signs Temperature 98.5 F 03/30/24 15:17 Pulse Rate 73 03/30/24 15:17 Respiratory Rate 18 03/30/24 15:17 Blood Pressure 102/66 03/30/24 15:17 Pulse Oximetry 99 03/30/24 15:17 Oxygen Delivery Me thod Room Air 03/30/24 15:17 MDM - Abdominal Pain Medical Decision Making Acute inflammatory process in the right lower quadrant and the right ovary and the appendix are adjacent to each other is difficult to distinguish per radiology which is the actual source. Ultrasound done unfortunately did not really clear up the issue. Will admit to Dr. Ramirez consult Dr. Nayak. Discussed with both the pulse have been to the emergency room to see the patient. Airport Location Manager thinks she may potentially have PID although she is not having any significant vaginal discharge. Orders written. Medical Records I reviewed the patient's medical records. Lab Data I reviewed the patient's lab results. 03/30/24 08:38 03/29/24 10:45 Labs/Radiology: Radiology Impressions Abdomen/Pelvis CT 03/29/24 11:06 IMPRESSION: 1. Acute inflammatory process centered in the RIGHT lower quadrant. The exact etiology is not determined. 2. There is some inflammation at the base of the appendix but only mild dilatation of the appendix. Could potentially represent early acute appendicitis. 3. There is additional mild enlargement of the RIGHT ovary with follicles and increased vascularity involving the ovarian pedicle. This is a new finding since 2018. Possibility of ovarian torsion should be considered. Consider transvaginal pelvic ultrasound imaging. 4. No abscess. Pelvic/Transvag US 03/29/24 13:58 IMPRESSION: 1. Enlarged RIGHT ovary with a hemorrhagic cyst and additional follicle. Vascularity within the ovary is still present but is easier to obtain in the periphery of the ovary. Also the waveform is much easier to obtain in the LEFT ovary than the RIGHT. Cannot exclude partial torsion or intermittent torsion of the RIGHT ovary. Consider evaluation by UX INFORMATION ARCHITECT. 2. Small amount of free fluid. Notified Noah Steinberg DO at 03/29/2024 2:52 PM. Laboratory Results WBC 7.60 10^3/uL (3.29-11.43) 03/29/24 10:45 RBC 4.16 10^6/uL (3.85-5.65) 03/29/24 10:45 Hgb 12.80 g/dL (11.27-16.99) 03/29/24 10:45 Hct 39.0 % (36-47) 03/29/24 10:45 MCV 93.8 fl (85-98) 03/29/24 10:45 MCH 30.8 pg (27-33) 03/29/24 10:45 MCHC 32.8 g/dL (30-55) 03/29/24 10:45 RDW 11.9 % (12.1-15.1) L 03/29/24 10:45 Plt Count 241 10^3/cmm (157-399) 03/29/24 10:45 MPV 10.3 fL (7.4-10.4) 03/29/24 10:45 Neut % (Auto) 53.1 % 03/29/24 10:45 Lymph % (Auto) 38.6 % 03/29/24 10:45 [place] % (Auto) 6.6 % 03/29/24 10:45 Eos % (Auto) 1.1 % 03/29/24 10:45 Baso % (Auto) 0.1 % 03/29/24 10:45 Neut # (Auto) 4.04 10^3/uL (1.8-7.7) 03/29/24 10:45 Lymph # (Auto) 2.9 10^3/uL (0.8-4.8) 03/29/24 10:45 [place] # (Auto) 0.5 10^3/uL (0.2-0.9) 03/29/24 10:45 Eos # (Auto) 0.1 10^3/uL (0.0-0.8) 03/29/24 10:45 Baso # (Auto) 0.0 10^3/uL (0.0-0.1) 03/29/24 10:45 Nucleated RBC % (auto) 0 % 03/29/24 10:45 Nucleated RBCs # 0.0 /100WBC 03/29/24 10:45 Sodium 139 mmol/L (136-145) 03/29/24 10:45 Potassium 4.1 mmol/L (3.5-5.1) 03/29/24 10:45 Chloride 106 mmol/L (98-107) 03/29/24 10:45 Carbon Dioxide 24 mmol/L (22-29) 03/29/24 10:45 Anion Gap 13.1 (5-19) 03/29/24 10:45 BUN 6 mg/dL (6-20) 03/29/24 10:45 Creatinine 0.6 mg/dL (0.5-0.9) 03/29/24 10:45 GFR Calculation 115.9 mL/min (90-130) 03/29/24 10:45 Glucose 94 mg/dL (65-115) 03/29/24 10:45 Calculated Osmolality 285 mOsm/kg (285-295) 03/29/24 10:45 Calcium 8.9 mg/dL (8.5-10.5) 03/29/24 10:45 Total Bilirubin 0.4 mg/dL (0.15-1.2) 03/29/24 10:45 AST 16 U/L (0-32) 03/29/24 10:45 ALT 12 U/L (0-33) 03/29/24 10:45 Alkaline Phosphatase 78 U/L (35-105) 03/29/24 10:45 Total Protein 6.9 g/dL (6.6-8.7) 03/29/24 10:45 Albumin 4.1 g/dL (3.5-5.2) 03/29/24 10:45 Globulin 2.8 g/dL (1.3-4.6) 03/29/24 10:45 Lipase 29 U/L (13-60) 03/29/24 10:45 HCG, Qual Negative (Negative) 03/29/24 10:45 Urine Color Yellow (Yellow) 03/29/24 12:32 Urine Appearance Clear (CLEAR) 03/29/24 12:32 Urine pH 8.0 (5-7) A 03/29/24 12:32 Ur Specific [place] 1.006 (1.005-1.030) 03/29/24 12:32 Urine Protein Negative (Negative) 03/29/24 12:32 Urine Glucose (UA) Negative (Normal) 03/29/24 12:32 Urine Ketones Negative (Negative) 03/29/24 12:32 Urine Blood Negative (Negative) 03/29/24 12:32 Urine Nitrate Negative (Negative) 03/29/24 12:32 Urine Bilirubin Negative (Negative) 03/29/24 12:32 Urine Urobilinogen 0.2 mg/dL (Negative) 03/29/24 12:32 Ur Leukocyte Esterase 2+ (Negative) A 03/29/24 12:32 Urine RBC 0-4 /hpf (0-2) H 03/29/24 12:32 Urine WBC 5-10 /hpf (0-5) H 03/29/24 12:32 Ur Squamous Epith Cells 0-4 /hpf (0-5) H 03/29/24 12:32 Amorphous Sediment Not Reportable 03/29/24 12:32 Urine Bacteria None /hpf (NONE) 03/29/24 12:32 Urine Mucus None /hpf 03/29/24 12:32 All radiology interpretation(s) finalized by discharge Discharge Plan Discharge Patient Disposition: Admitted As Inpatient Admit Provider: Homero Ramirez Clinical Impression: Abdominal pain Condition: Stable Coding Level of Care Code ED Communications Technician for Chg Jd
[2024-03-29 11:29] LABS: HCG, Serum Qual Negative (Negative)
[2024-03-29] MEDS: ondansetron 2 mg/ML SDV 2 mL 4 MG IVP (11:38)
[2024-03-29] MEDS: morphine 4 mg/mL SDV 1 mL IVP ×2 (11:39→13:05)
[2024-03-29 11:40] LABS: Alanine Aminotransferase 12 U/L (0-33); Albumin Level 4.1 g/dL (3.5-5.2); Alkaline Phosphatase 78 U/L (35-105); Anion Gap 13.1 (5-19); Aspartate Amino Transferase 16 U/L (0-32); Blood Urea Nitrogen 6 mg/dL (6-20); Calcium 8.9 mg/dL (8.5-10.5); Carbon Dioxide 24 mmol/L (22-29); Chloride 106 mmol/L (98-107); Creatinine Clr Calc Pharmacy 118.0072; Globulin 2.8 g/dL (1.3-4.6); Glomerular Filtration Rate 115.9 mL/min (90-130); Glucose 94 mg/dL (65-115); Lipase 29 U/L (13-60); Osmolality Calculated 285 mOsm/kg (285-295); Potassium 4.1 mmol/L (3.5-5.1); Sodium 139 mmol/L (136-145); Total Bilirubin 0.4 mg/dL (0.15-1.2); Total Protein 6.9 g/dL (6.6-8.7)
[2024-03-29] MEDS: sodium chloride 0.9% 1,000 ML 999 ML IV (11:43)
[2024-03-29 12:52] LABS: Bilirubin Urine Negative (Negative); Blood Urine Negative (Negative); Glucose Urine UA Negative (Normal); Ketones Urine Negative (Negative); Leukocyte Esterase Urine 2+ (Negative); Nitrate Urine Negative (Negative); Protein Urine Negative (Negative); Specific Gravity, Urine 1.006 (1.005-1.030); Urine Appearance Clear (CLEAR); Urine Color Yellow (Yellow); Urobilinogen Urine 0.2 mg/dL (Negative)
[2024-03-29] MEDS: iohexol 350 mg/mL 500 mL Btl (per mL) IV (12:57)
[2024-03-29 13:19] LABS: UA Manual Slide Review YES; UA Slide Review UA Slide Review Perf
[2024-03-29 13:21] LABS: Add Urine Microscopic? YES; RBC Urine 0-4 /hpf (0-2); Squamous Epithelial Cell Urine 0-4 /hpf (0-5)
[2024-03-29 13:22] LABS: Add Urine Culture? No
--- NOTE | 2024-03-29 13:58 | US_ITS ---
WS: [id number] US pelvis lmt w transvag HISTORY: abd/pelvis pain question RIGHT ovarian torsion. COMPARISON: 04/19/2018 Uterus: 7.3 cm x 4.2 cm x 3.8 cm. Normal size anteverted uterus. No fibroid or mass. Endometrium: 0.9 cm. Normal. Right ovary: 4.5 cm x 2.8 cm x 4.4 cm. Ovary is moderately enlarged. There is a hemorrhagic cyst with in the RIGHT ovary. There is an additional small follicle. Color Doppler is identified within the ova ry but it is greatest within the periphery. There is also a small amount of free fluid. Left ovary: 2.0 cm x 1.7 cm x 1.6 cm. Normal size and vascularity, no cystic or solid masses. Small amount of free fluid in the cul-de-sac. US/US pelvis lmt w transvag IMPRESSION: 1. Enlarged RIGHT ovary with a hemorrhagic cyst and additional follicle. Vascu larity within the ovary is still present but is easier to obtain in the periphe ry of the ovary. Also the waveform is much easier to obtain in the LEFT ovary t [place] the RIGHT. Cannot exclude partial torsion or intermittent torsion of the RI GHT ovary. Consider evaluation by SHIFT LAB TECHNICIAN. 2. Small amount of free fluid. Notified Noah Steinberg DO at 03/29/2024 2:52 PM.
--- NOTE | 2024-03-29 15:54 | P.CONIM_ITS ---
Providers/Reason For Consult 2 Primary Care Provider: Steven Walker MD History of Present Illness History of Present Illness Shana Mayberry is a 33 year old female Medications/Allergies Home Medications Medication Instructions Recorded Confirmed Last Taken Type No Known Home Medications 03/29/24 03/29/24 Unknown History Allergies Allergy/AdvReac Type Severity Reaction Status Date / Time metoclopramide [From Reglan] Allergy ADR-Anxiety Verified 01/26/24 10:34 PFSH Acute 2 PFSH: Medical History Cough Cerebrovascular accident Migraine headache Surgical History S/P section (04/27/20) RLTCS. Performed by Dr. Lopez at [facility] S/P laparoscopic cholecystectomy (~10/2019) Was at the time. S/P primary low transverse (08/03/14) Performed [place] Dr. Lopez [place] [facility] [place], [place]. Confirmed LTCS with 2 layer closure. Family History Denies family history of Diabetes Anesthesia complication Bleeding disorder Hypertension Stroke Social History Smoking and tobacco/nicotine status: former use of tobacco/nicotine Quit status (tobacco/nicotine): has quit using Year quit tobacco: 04/2019 Former quit date comment: Was smoking 1 PPD until switched to vaping in 2017. Quit in 04/2019. Alcohol intake: never Substance/Drug Use: never Female Reproductive History: Para: 1 Spontaneous abortions: No Vitals/I&O/Wt Last Vital Signs Temp 97.6 F 03/29/24 10:39 Pulse 76 03/29/24 15:41 Resp 18 03/29/24 13:05 BP 120/80 03/29/24 15:41 Pulse Ox 100 03/29/24 15:41 O2 Del Method Room Air 03/29/24 15:41 03/29/24 03/29/24 03/29/24 06:59 14:59 22:59 Intake Total 1000 / 1000 Balance 1000 / 1000 Weight last 48 hrs Weight 148 lb Data 03/29/24 10:45 03/29/24 10:45 Coding Level of Care Code Acute Code for Chg Fwd
--- NOTE | 2024-03-29 16:16 | PM.HP ---
Providers/Chief Complaint Primary Care Provider: Steven Walker MD Chief Complaint: abd pain History of Present Illness Shana Mayberry is a 33 year old female who presents with right lower quadrant pain. Patient reports pain since last night. No nausea vomiting fevers chills. Currently she is hungry. CT scan showed right lower quadrant inflammatory changes. No clear evidence of appendicitis or right ovarian torsion. Transvaginal ultrasound performed and there are some vascular changes of the right ovary but not convincing enough to determine that this is ovarian torsion according to radiology. Gynecology has been consulted and as of this time they do not have a high concern for ovarian torsion. Negative Rovsing sign. Negative psoas sign. She does have pain in her right lower quadrant but she is not peritonitic. She has had a laparoscopic cholecystectomy and 2 C-sections. Medications/Allergies Home Medications Medication Instructions Recorded Confirmed Last Taken Type No Known Home Medications 03/29/24 03/29/24 Unknown History Allergies Allergy/AdvReac Type Severity Reaction Status Date / Time metoclopramide [From Reglan] Allergy ADR-Anxiety Verified 01/26/24 10:34 PFSH Acute PFSH: Medical History Cough Cerebrovascular accident Migraine headache Surgical History S/P section (04/27/20) RLTCS. Performed by Dr. Lopez at [facility] S/P laparoscopic cholecystectomy (~10/2019) Was at the time. S/P primary low transverse (08/03/14) [place] [place] [facility] [place] Confirmed LTCS with 2 layer closure. Family History Denies family history of Diabetes Anesthesia complication Bleeding disorder Hypertension Stroke Social History Smoking and tobacco/nicotine status: former use of tobacco/nicotine Quit status (tobacco/nicotine): has quit using Year quit tobacco: 04/2019 Former quit date comment: Was smoking 1 PPD until switched to vaping in 2017. Quit in 04/2019. Alcohol intake: never Substance/Drug Use: never Female Reproductive History: Para: 1 Spontaneous abortions: No Vitals/I&O/Wt Last Vital Signs Temp 97.6 F 03/29/24 10:39 Pulse 76 03/29/24 15:41 Resp 18 03/29/24 13:05 BP 120/80 03/29/24 15:41 Pulse Ox 100 03/29/24 15:41 O2 Del Method Room Air 03/29/24 15:41 03/29/24 03/29/24 03/29/24 06:59 14:59 22:59 Intake Total 1000 / 1000 Balance 1000 / 1000 Weight last 48 hrs Weight 148 lb Physical Exam Narrative: Chest: Unlabored breathing room air. No lymphadenopathy. Heart: Regular rate and rhythm. Abdomen: Soft, nontender, nondistended. No masses or lymphadenopathy. Data 03/29/24 10:45 03/29/24 10:45 A&P Assessment and plan (1) Abdominal pain: Plan 33-year-old female who presents with right upper quadrant pain. I have reviewed the laboratory work as well as the CT scan images. Per my interpretation the likelihood that this is acute appendicitis is low. Awaiting formal gynecology input, however, at this point it appears they do not have a concern for ovarian torsion. I will admit to the surgical service for observation and consider diagnostic laparoscopy tomorrow pending gynecology's input. Attestations Medical Necessity Statement*: Overnight admission. Observation. May need surgery tomorrow pending gynecology's evaluation. Coding Level of Care Code 82444 Diagnoses Abdominal pain R10.9 Time Spent (min) 30
--- NOTE | 2024-03-29 17:47 | PM.OBGYCN ---
Providers/Reason for Consult Consulting Physican/Specialty*: Centralized Traffic Control Operator Reason for Consult*: abdominal pain Attending Physician: Homero Ramirez MD Primary COMPOTYPE OPERATOR: Agustin Nayak MD Primary Care Provider: Steven Walker MD COMPOTYPE OPERATOR Consult HPI History of Present Illness Shana Mayberry is a 33 year old female no control periods normal and regular was doing well until approximately 2 pm yesterday when she began to have lower abdominal pain, which has worsened pain in lower abdomen, especially right lower quadrant + mild nausea no fever, chills, vomiting, diarrhea no vaginal bleeding or discharge Medications/Allergies Home Medications Medication Instructions Recorded Confirmed Last Taken Type No Known Home Medications 03/29/24 03/29/24 Unknown History Allergies Allergy/AdvReac Type Severity Reaction Status Date / Time metoclopramide [From Reglan] Allergy ADR-Anxiety Verified 01/26/24 10:34 PFSH COMPOTYPE OPERATOR PFSH: Medical History Cough Cerebrovascular accident Migraine headache Surgical History S/P section (04/27/20) RLTCS. Performed by Dr. Lopez at [facility] S/P laparoscopic cholecystectomy (~10/2019) Was at the time. S/P primary low transverse (08/03/14) Performed by Dr. Lopez at [facility] in [place], [place]. Confirmed LTCS with 2 layer closure. Family History Denies family history of Diabetes Anesthesia complication Bleeding disorder Hypertension Stroke Social History Smoking and tobacco/nicotine status: former use of tobacco/nicotine Quit status (tobacco/nicotine): has quit using Year quit tobacco: 04/2019 Former quit date comment: Was smoking 1 PPD until switched to vaping in 2017. Quit in 04/2019. Alcohol intake: never Substance/Drug Use: never Other Female Reproductive History: Hx Age of Menarche: 14 Duration of menses: 3-5 days Cycle Length: every 28 to 30 days Menstrual flow: normal/abnormal: normal Vitals/I&O/Wt Last Vital Signs Temp 97.6 F 03/29/24 10:39 Pulse 75 10/03/24 17:38 Resp 18 03/29/24 13:05 BP 92/48 03/29/24 17:38 Pulse Ox 98 03/29/24 17:38 O2 Del Method Room Air 03/29/24 17:04 03/29/24 03/29/24 03/29/24 06:59 14:59 22:59 Intake Total 1000 / 1000 Balance 1000 / 1000 Weight last 48 hrs Weight 145 lb 5 oz Weight 148 lb Physical Exam Narrative: weight 148 lbs temp: 97.6 General comfortable, awake, alert, appropriate Abd: soft, nondistended + tender to palpation in lower quadrants no rebound Data 03/29/24 10:45 03/29/24 10:45 Other Labs: Urine HCG negative WBCs 7.6 Hgb 12.8 UA normal A&P Assessment and plan (1) Abdominal pain: 33 y.o. with acute onset of lower abdominal / RLQ pain x one day afebrile normal WBC normal UA nonspecific CT and pelvic sono findings clinically suspect PID cannot entirely rule out appendicitis, however, patient has no major GI complaints recommend empiric treatment with Rocephin and Zithromax will continue to follow Consult Attestations Medical Necessity Statement: patient with acute onset of abdominal pain Coding Level of Care Code Acute Code for Chg Fwd Diagnoses Abdominal pain R10.9 Time Spent (min) 60
[2024-03-29] MEDS: D5-NS 0.45% + KCL 20 mEq 20 MEQ/1,000 ML BAG 100 MEQ IV (17:56)
[2024-03-29] MEDS: morphine 4 mg/mL SDV 1 mL 2 MG IVP (18:03)
[2024-03-30] VITALS (9 sets, daily range): BP systolic 94–109; BP diastolic 62–75; PULSE 60–82; RESP 16–18; TEMP 36.8–36.9; O2SAT 98–99
[2024-03-30] MEDS: ketorolac 30 mg/mL INJ 15 MG IVP (03:29)
[2024-03-30] MEDS: sodium chloride 0.9% 1,000 ML 999 ML IV (03:35)
[2024-03-30] MEDS: D5-NS 0.45% + KCL 20 mEq 20 MEQ/1,000 ML BAG 100 MEQ IV ×2 (04:40→20:29)
[2024-03-30 08:51] LABS: Basophils % 0.3 %; Lymphocytes # 1.7 10^3/uL (0.8-4.8); Lymphocytes % 43.5 %; Mean Corpuscular HGB Conc 32.9 g/dL (30-55); Mean Corpuscular Hemoglobin 31.7 pg (27-33); Mean Corpuscular Volume 96.3 fl (85-98); Mean Platelet Volume 10.4 fL (7.4-10.4); Monocytes # 0.3 10^3/uL (0.2-0.9); Monocytes % 6.8 %; Neutrophils # 1.92 10^3/uL (1.8-7.7); Neutrophils % 48.1 %; Nucleated Red Blood Cells % 0 %; Platelet Count 202 10^3/cmm (157-399); Red Blood Count 3.53 10^6/uL (3.85-5.65); White Blood Count 3.98 10^3/uL (3.29-11.43)
[2024-03-30] MEDS: cefTRIAXone 2,000 mg SDV 2000 MG IVP (09:25)
[2024-03-30] MEDS: azithromycin 500 MG in sodium chloride 0.9% 250 ML 250 MG IV (09:38)
--- NOTE | 2024-03-30 10:01 | PC.CHAP ---
Pastoral Care Encounter/Spiritual Assessment Type of Contact [] Declined car repair supervisor visit [] Patient/Family/Request visit [] Outpatient visit [] Follow-up visit [] Physician referral [] Code/Alert [x] Routine visit [] Staff referral [] Actively dying [] Patient sleeping [] Family support [] [] Out of room [] Palliative care [] [] Receiving care in room [] Pre-surgical visit [] Trauma [] Long length of stay [] ICU visit [] Other: Relational/Emotional Strength [x] Patient feels connected with others/family/visitors/staff [] Distress [] Loneliness/isolation [] Abandonment Spirituality of Patient [x] Person of Nayeli [x] Attends Caodaism of their Nayeli [x] Believes in Prayer [] Reads Bible or Muslim materials [] There are Spiritual issues to be addressed Production Support Manager Interventions [x] Prayer [x Active listening [x] Non-anxious presence [] Spiritual/emotional support [] Crisis/trauma care [] Spiritual counseling [] Bereavement support [] Provided bereavement packet [] Provided Bible/devotional materials [] Provided toy/stuffed animal, coloring book to patient or family member [] Provided Communion [] Anointing/[place] [] Salvation [] Completed spiritual assessment [] Other: Impact on Illness or Injury [] Angry [] Fearful [] Anxious [] Often cries [] Exhaustion [] Unable to work [] Unable to attend cheondoism [] Unable to walk/stand [] Unable to read [] Unable to drive [] Unable to eat/drink [] Unable to sleep [] Unable to be with family [] Patient intubated [] Other: Summary Time spent with patient 10 Min
[2024-03-30] MEDS: morphine 4 mg/mL SDV 1 mL 2 MG IVP ×2 (11:19→20:35)
--- NOTE | 2024-03-30 11:51 | P.PN_ITS ---
Subjective 2 Subjective: Pain about the same as yesterday Gynecology evaluated and they have a higher suspicion for pelvic inflammatory disease Hungry Vitals/I&O/Wt Last Vital Signs Temp 98.2 F 03/30/24 11:14 Pulse 82 03/30/24 11:14 Resp 16 03/30/24 11:14 BP 94/64 03/30/24 11:14 Pulse Ox 98 03/30/24 11:14 O2 Del Method Room Air 03/30/24 11:14 03/29/24 03/30/24 03/30/24 22:59 06:59 14:59 Intake Total 1965 / 2965 250 / 250 Balance 1965 / 2965 250 / 250 Weight last 48 hrs Weight 151 lb 11.2 oz Weight 145 lb 5 oz Weight 148 lb Physical Exam 2 Narrative: Chest: Unlabored breathing room air. No lymphadenopathy. Heart: Regular rate and rhythm. Abdomen: Soft, tender rlq, nondistended. No masses or lymphadenopathy. Data 03/30/24 08:38 03/29/24 10:45 A&P Assessment and plan (1) Pelvic inflammatory disease: Plan 33-year-old female admitted with right lower quadrant pain. Clinical picture not consistent with acute appendicitis. Gynecology evaluated and thought pelvic inflammatory disease is more likely. Started empiric treatment with antibiotics. Patient may have a diet. Will reevaluate tomorrow. Attestations 2 Medical Necessity Statement*: IV antibiotics Coding Level of Care Code 33412 Diagnoses Pelvic inflammatory disease N73.9 Time Spent (min) 30
--- NOTE | 2024-03-30 16:26 | P.PN_ITS ---
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: Interval history: patient seen and examined states pain slightly better no nausea, vomiting eating well Vitals/I&O/Wt Last Vital Signs Temp 98.5 F 03/30/24 15:17 Pulse 73 03/30/24 15:17 Resp 18 03/30/24 15:17 BP 102/66 03/30/24 15:17 Pulse Ox 99 03/30/24 15:17 O2 Del Method Room Air 03/30/24 15:17 03/30/24 03/30/24 03/30/24 06:59 14:59 22:59 Intake Total 1964 / 2965 250 / 250 Balance 1964 / 2965 250 / 250 Weight last 48 hrs Weight 151 lb 11.2 oz Weight 145 lb 5 oz Weight 148 lb Physical Exam 2 Const: COMMON NORMALS: no acute distress, patient oriented x3 and alert GI: COMMON NORMALS: Normal to inspection, nondistended, normoactive bowel sounds present and Soft to palpation PALPATION: Yes Soft to palpation O THER: mild lower abdominal tenderness no rebound Neuro: COMMON NORMALS: patient oriented x3 SENSORIUM/ORIENTATION: Yes alert Data 03/30/24 08:38 03/29/24 10:45 A&P Assessment and plan (1) Abdominal pain: most likely PID 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 Attestations 2 Medical Necessity Statement*: patient admitted with abdominal pain Coding Level of Care Code Acute Code for Chg Fwd Diagnoses Abdominal pain R10.9 Time Spent (min) 30
[2024-03-31 03:45] VITALS: BP 96/63; PULSE 66; RESP 16; TEMP 36.6; O2SAT 99
[2024-03-31] MEDS: D5-NS 0.45% + KCL 20 mEq 20 MEQ/1,000 ML BAG 100 MEQ IV (05:26)
[2024-03-31 08:00] VITALS: BP 105/70; PULSE 71; RESP 15; TEMP 36.8; O2SAT 98
[2024-03-31] MEDS: cefTRIAXone 2,000 mg SDV 2000 MG IVP (08:40)
[2024-03-31 08:47] VITALS: RESP 16
[2024-03-31] MEDS: morphine 4 mg/mL SDV 1 mL 2 MG IVP (08:47)
[2024-03-31] MEDS: azithromycin 500 MG in sodium chloride 0.9% 250 ML 250 MG IV (08:48)
[2024-03-31 11:57] VITALS: BP 106/67; PULSE 60; RESP 15; TEMP 36.7; O2SAT 99
--- NOTE | 2024-03-31 12:42 | P.PN_ITS ---
Subjective 2 Subjective: Abdominal pain very minimal right lower quadrant Tolerating regular diet Vitals/I&O/Wt Last Vital Signs Temp 98.0 F 03/31/24 11:57 Pulse 60 03/31/24 11:57 Resp 15 03/31/24 11:57 BP 106/67 03/31/24 11:57 Pulse Ox 99 03/31/24 11:57 O2 Del Method Room Air 03/31/24 11:57 03/30/24 03/31/24 03/31/24 22:59 06:59 14:59 Intake Total 240 / 1490 895 / 2385 490 / 490 Balance 240 / 1490 895 / 2385 490 / 490 Weight last 48 hrs Weight 155 lb 3 oz Weight 151 lb 11.2 oz Weight 145 lb 5 oz Physical Exam 2 Narrative: Chest: Unlabored breathing room air. No lymphadenopathy. Heart: Regular rate and rhythm. Abdomen: Soft, mildly tender RLQ, nondistended. No masses or lymphadenopathy. Data 03/30/24 08:38 03/29/24 10:45 A&P Assessment and plan (1) Pelvic inflammatory disease: Plan 33-year-old female who presented with right lower quadrant pain. Appendicitis ruled out. Treating for pelvic inflammatory disease. Patient being discharged on oral antibiotics per gynecology recommendation. She can follow-up with gynecology if she continues having issues. Attestations 2 Medical Necessity Statement*: IV antibiotics, serial physical exams to rule out appendicitis Coding Level of Care Code 02201 Diagnoses Pelvic inflammatory disease N73.9 Time Spent (min) 30
[2024-03-31 14:57] VITALS: BP 106/67; PULSE 60; RESP 15; TEMP 36.7; O2SAT 99
--- NOTE | 2024-04-02 15:36 | P.DS_ITS ---
Discharge Providers Date of Admission: 03/29/24 16:31 Date of Discharge: April 02, 2024 Attending Provider at Admission: Homero Raimrez MD Attending Provider at Discharge: Homero Ramirez MD Primary Care Provider: Steven Walker MD Diagnoses at Discharge Discharge Diagnosis (1) Pelvic inflammatory disease: Status: Acute Reason for Visit Reason for Visit: abd pain Hospital Course Hospital Course 33-year-old female who presented with right lower quadrant pain. CT scan with nonspecific findings of right iliac fossa inflammation. Among the differential was acute appendicitis. Patient was admitted and treated with antibiotics. G ynecology evaluated her and determined this was most consistent with pelvic inflammatory disease. Patient discharged on p.o. antibiotics. Physical Exam Narrative: Chest: Unlabored breathing room air. No lymphadenopathy. Heart: Regular rate and rhythm. Abdomen: Soft, nontender, nondistended. No masses or lymphadenopathy. Discharge Data Studies Completed and Pending Completed Studies During Hospitalization Category Date Time Status CT abdomen pelvis w con* [id number] Stat Cat Scan 03/29/24 11:06 Completed US pelvis lmt w transvag Stat Ultrasound 03/29/24 13:58 Completed Radiology Impressions Abdomen/Pelvis CT 03/29/24 11:06 IMPRESSION: 1. Acute inflammatory process centered in the RIGHT lower quadrant. The exact etiology is not determined. 2. There is some inflammation at the base of the appendix but only mild dilatation of the appendix. Could potentially represent early acute appendicitis. 3. There is additional mild enlargement of the RIGHT ovary with follicles and increased vascularity involving the ovarian pedicle. This is a new finding since 2018. Possibility of ovarian torsion should be considered. Consider transvaginal pelvic ultrasound imaging. 4. No abscess. Pelvic/Transvag US 03/29/24 13:58 IMPRESSION: 1. Enlarged RIGHT ovary with a hemorrhagic cyst and additional follicle. Vascularity within the ovary is still present but is easier to obtain in the periphery of the ovary. Also the waveform is much easier to obtain in the LEFT ovary than the RIGHT. Cannot exclude partial torsion or intermittent torsion of the RIGHT ovary. 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 2. Small amount of free fluid. Notified Noah Steinberg DO at 03/29/2024 2:52 PM. Laboratory Results WBC 3.98 10^3/uL (3.29-11.43) 03/30/24 08:38 RBC 3.53 10^6/uL (3.85-5.65) L 03/30/24 08:38 Hgb 11.20 g/dL (11.27-16.99) L 03/30/24 08:38 Hct 34.0 % (36-47) L 03/30/24 08:38 MCV 96.3 fl (85-98) 03/30/24 08:38 MCH 31.7 pg (27-33) 03/30/24 08:38 MCHC 32.9 g/dL (30-55) 03/30/24 08:38 RDW 12.0 % (12.1-15.1) L 03/30/24 08:38 Plt Count 202 10^3/cmm (157-399) 03/30/24 08:38 MPV 10.4 fL (7.4-10.4) 03/30/24 08:38 Neut % (Auto) 48.1 % 03/30/24 08:38 Lymph % (Auto) 43.5 % 03/30/24 08:38 [place] % (Auto) 6.8 % 03/30/24 08:38 Eos % (Auto) 1.0 % 03/30/24 08:38 Baso % (Auto) 0.3 % 03/30/24 08:38 Neut # (Auto) 1.92 10^3/uL (1.8-7.7) 03/30/24 08:38 Lymph # (Auto) 1.7 10^3/uL (0.8-4.8) 03/30/24 08:38 Ross # (Auto) 0.3 10^3/uL (0.2-0.9) 03/30/24 08:38 Eos # (Auto) 0.0 10^3/uL (0.0-0.8) 03/30/24 08:38 Baso # (Auto) 0.0 10^3/uL (0.0-0.1) 03/30/24 08:38 Nucleated RBC % (auto) 0 % 03/30/24 08:38 Nucleated RBCs # 0.0 /100WBC 03/30/24 08:38 Sodium 139 mmol/L (136-145) 03/29/24 10:45 Potassium 4.1 mmol/L (3.5-5.1) 03/29/24 10:45 Chloride 106 mmol/L (98-107) 03/29/24 10:45 Carbon Dioxide 24 mmol/L (22-29) 03/29/24 10:45 Anion Gap 13.1 (5-19) 03/29/24 10:45 BUN 6 mg/dL (6-20) 03/29/24 10:45 Creatinine 0.6 mg/dL (0.5-0.9) 03/29/24 10:45 GFR Calculation 115.9 mL/min (90-130) 03/29/24 10:45 Glucose 94 mg/dL (65-115) 03/29/24 10:45 Calculated Osmolality 285 mOsm/kg (285-295) 03/29/24 10:45 Calcium 8.9 mg/dL (8.5-10.5) 03/29/24 10:45 Total Bilirubin 0.4 mg/dL (0.15-1.2) 03/29/24 10:45 AST 16 U/L (0-32) 03/29/24 10:45 ALT 12 U/L (0-33) 03/29/24 10:45 Alkaline Phosphatase 78 U/L (35-105) 03/29/24 10:45 Total Protein 6.9 g/dL (6.6-8.7) 03/29/24 10:45 Albumin 4.1 g/dL (3.5-5.2) 03/29/24 10:45 Globulin 2.8 g/dL (1.3-4.6) 03/29/24 10:45 Lipase 29 U/L (13-60) 03/29/24 10:45 HCG, Qual Negative (Negative) 03/29/24 10:45 Urine Color Yellow (Yellow) 03/29/24 12:32 Urine Appearance Clear (CLEAR) 03/29/24 12:32 Urine pH 8.0 (5-7) A 03/29/24 12:32 Ur Specific [place] 1.006 (1.005-1.030) 03/29/24 12:32 Urine Protein Negative (Negative) 03/29/24 12:32 Urine Glucose (UA) Negative (Normal) 03/29/24 12:32 Urine Ketones Negative (Negative) 03/29/24 12:32 Urine Blood Negative (Negative) 03/29/24 12:32 Urine Nitrate Negative (Negative) 03/29/24 12:32 Urine Bilirubin Negative (Negative) 03/29/24 12:32 Urine Urobilinogen 0.2 mg/dL (Negative) 03/29/24 12:32 Ur Leukocyte Esterase 2+ (Negative) A 03/29/24 12:32 Urine RBC 0-4 /hpf (0-2) H 03/29/24 12:32 Urine WBC 5-10 /hpf (0-5) H 03/29/24 12:32 Ur Squamous Epith Cells 0-4 /hpf (0-5) H 03/29/24 12:32 Amorphous Sediment Not Reportable 03/29/24 12:32 Urine Bacteria None /hpf (NONE) 03/29/24 12:32 Urine Mucus None /hpf 03/29/24 12:32 Vitals Last Vital Signs Temp 98.0 F 03/31/24 14:57 Pulse 60 03/31/24 14:57 Resp 15 03/31/24 14:57 BP 106/67 03/31/24 14:57 Pulse Ox 99 03/31/24 14:57 O2 Del Method Room Air 03/31/24 11:57 Discharge Plan Discharge Patient Disposition: Home Condition: Stable Prescriptions: New metronidazole 500 mg tablet 500 mg PO BID 7 Days Qty: 14 0RF azithromycin [Zithromax] 250 mg tablet 250 mg PO DAILY 5 Days Qty: 6 0RF Discharge Orders: Discharge Order (Routine); Ordered 03/31/24 Ordered By: Homero Ramirez Referrals: Steven Walker MD [Primary Care Provider] - (We have notified your [facility] of the need for a follow-up appointment to be scheduled. If you have not heard from them within the next 2 business days, please call them directly. ) Discharge Diet: Advance as tolerated Discharge Activity: Resume usual activity Patient Instructions: Metronidazole (By mouth), Azithromycin (By mouth), Pelvic Inflammatory Disease (GEN), Opioid Safety Activity Restrictions/Additional Instructions: Follow-up with family medicine after finishing antibiotics for PID. Follow-up with surgery is not needed. Appendicitis ruled out. Stand Alone Forms: Work/School Release Discharge Attestations Time Spent in Discharge Care*: greater than 30 min Quality Metrics Clinical Quality Measures [ No reported AMI, CVA or VTE this stay] Coding Level of Care Code Acute Code for Chg Fwd Diagnoses Pelvic inflammatory disease N73.9 Time Spent (min) 30
== END 2024-03-31 14:58 | disposition home or self-care (01) ==
LOC: ER 13:14 → MEDSURG 16:33
PROVIDERS: Emergency Medicine; Admitting Provider Student in an Organized Health Care Education/Training Program; Emergency Provider Family Medicine; PCP Family Medicine; Visit Provider Student in an Organized Health Care Education/Training Program
DX: N73.9 Female pelvic inflammatory disease, unspecified (principal); Z87.891 Personal history of nicotine dependence; Z90.49 Acquired absence of other specified parts of digestive tract; Z86.73 Personal history of transient ischemic attack (TIA), and cerebral infarction without residual deficits
CPT/HCPCS: 36415; 74177; 76830; 76857; 80053; 81001; 83690; 84703; 85025; 96361; 96365; 96375; 96376; 99285; G0378; J0456; J0696; J1885; J2270; J2405; J7030; J7050

== ENCOUNTER 2024-06-01 17:46 | Emergency (ER) | payer SELFPAY ==
[2024-06-01 17:52] VITALS: BP 114/79; PULSE 97; RESP 17; TEMP 36.8; O2SAT 99; BMI 27.6
[2024-06-01 19:46] LABS: Basophils % 0.1 %; Eosinophils % 0.5 %; Hematocrit 41.3 % (36-47); Lymphocytes # 2.3 10^3/uL (0.8-4.8); Lymphocytes % 28.7 %; Mean Corpuscular HGB Conc 33.7 g/dL (30-55); Mean Corpuscular Hemoglobin 30.7 pg (27-33); Mean Corpuscular Volume 91.2 fl (85-98); Mean Platelet Volume 10.2 fL (7.4-10.4); Monocytes # 0.5 10^3/uL (0.2-0.9); Neutrophils # 5.15 10^3/uL (1.8-7.7); Neutrophils % 64.4 %; Nucleated Red Blood Cells % 0 %; Platelet Count 306 10^3/cmm (157-399); Red Blood Count 4.53 10^6/uL (3.85-5.65); Red Cell Distribution Width 11.8 % (12.1-15.1); White Blood Count 7.99 10^3/uL (3.29-11.43)
[2024-06-01 20:01] LABS: HCG, Serum Qual Negative (Negative)
[2024-06-01 20:12] LABS: Alanine Aminotransferase 47 U/L (0-33); Albumin Level 4.4 g/dL (3.5-5.2); Alkaline Phosphatase 122 U/L (35-105); Anion Gap 17.7 (5-19); Aspartate Amino Transferase 25 U/L (0-32); Blood Urea Nitrogen 8 mg/dL (6-20); Calcium 9.9 mg/dL (8.5-10.5); Carbon Dioxide 24 mmol/L (22-29); Chloride 104 mmol/L (98-107); Creatinine Clr Calc Pharmacy 100.4875; Globulin 3.9 g/dL (1.3-4.6); Glucose 94 mg/dL (65-115); Lipase 39 U/L (13-60); Osmolality Calculated 292 mOsm/kg (285-295); Potassium 3.7 mmol/L (3.5-5.1); Sodium 142 mmol/L (136-145); Total Bilirubin 0.2 mg/dL (0.15-1.2); Total Protein 8.3 g/dL (6.6-8.7)
--- NOTE | 2024-06-01 20:13 | W.ED.ABDPA2 ---
HPI - Abdominal Pain General: Chief Complaint: Abdominal Pain Stated Complaint: migrane, uti, lower abd pain Time Seen by Provider: 06/01/24 19:20 History of Present Illness: 33-year-old female here with some dysuria. She also has some back pain. She has a cough. She denies fever. She says she has a migraine headache, which she has not had in a while. Related Data Date of Last Menstrual Period: 05/08/24 Previous Rx's Medication Instructions Recorded albuterol sulfate 90 mcg/actuation 2 puff inhalation Q6H PRN 04/10/24 aerosol inhaler shortness of breath or wheezing #8.5 grams cefdinir 300 mg capsule 300 mg PO BID #14 caps 06/01/24 hydrocodone 5 mg-acetaminophen 325 1 tab PO Q8H PRN pain #7 tabs 06/01/24 mg tablet ondansetron 4 mg disintegrating 4 mg PO Q6H PRN nausea and 06/01/24 tablet vomiting #14 tabs Allergies Allergy/AdvReac Type Severity Reaction Status Date / Time metoclopramide [From Reglan] Allergy ADR-Anxiety Verified 01/26/24 10:34 [facility] ED PFSH: Medical History Cough Cerebrovascular accident Migraine headache Surgical History S/P section (04/27/20) RLTCS. Performed by Dr. Lopez at [facility] S/P laparoscopic cholecystectomy (~10/2019) Was at the time. S/P primary low transverse (08/03/14) Performed by Dr. Lopez at [facility] in [place], [place]. Confirmed LTCS with 2 layer closure. Family History Denies family history of Diabetes Anesthesia complication Bleeding disorder Hypertension Stroke Social History Smoking and tobacco/nicotine status: former use of tobacco/nicotine Quit status (tobacco/nicotine): has quit using Year quit tobacco: 04/2019 Former quit date comment: Was smoking 1 PPD until switched to vaping in 2017. Quit in 04/2019. Alcohol intake: never Substance/Drug Use: never Female Reproductive History: Date of last menstrual period: 05/08/24 Para: 1 Spontaneous abortions: No Physical Exam Const: COMMON NORMALS: no acute distress GENERAL APPEARANCE: cooperative; not ill appearing and not frail appearing HENMT: COMMON NORMALS: normocephalic, atraumatic and Normal external nose present HEAD & SCALP: normocephalic and atraumatic FACE & SINUS: normal facial exam and face symmetric NOSE: Normal external nose present Eye: COMMON NORMALS: Equal, round and reactive pupils present and EOMs intact bilaterally PUPIL: Yes Equal, round and reactive pupils present Neck/C-Spine: GENERAL: Yes trachea midline Chest: CHEST: Yes Symmetrical chest wall rise Resp: COMMON NORMALS: normal respiratory effort, No retractions, No use of accessory muscles and clear to auscultation bilaterally AUSCULTATION: clear to auscultation bilaterally Cardio: COMMON NORMALS: regular rate and regular rhythm RATE: regular rate RHYTHM: regular rhythm GI: COMMON NORMALS: Normal to inspection, nondistended, normoactive bowel sounds present Extremity: COMMON NORMALS: no pedal edema Neuro: BROCK COMA SCALE: document GCS findings Brock coma scale eye opening: Spontaneous Brock coma scale verbal response: Orientated [place] coma scale motor response: Obey commands Brock coma scale total score: 15 SENSORY EXAM: Yes extremities (intact) Psych: COMMON NORMALS: speech normal SPEECH: Yes normal speech Skin: COMMON NORMALS: no rashes or lesions noted GENERAL SKIN EXAM: no rashes or lesions noted Course Vital Signs: Vital signs: Vital Signs Temperature 98.2 F 06/01/24 17:52 Pulse Rate 85 06/01/24 22:30 Respiratory Rate 18 06/01/24 21:45 Blood Pressure 127/82 06/01/24 22:30 Pulse Oximetry 98 06/01/24 22:30 Oxygen Delivery Me thod Room Air 06/01/24 17:52 MDM - Abdominal Pain Medical Decision Making CBC is normal BMP is normal. She is not . Urinalysis is pending Urinalysis shows greater than 100 whites with 3+ leukocyte Estrace. There is blood present. CT shows no stone. Does show evidence of cystitis. Swabs are negative for COVID. White blood cell count is 8. She did have an increase in her pain, but pain is resolved now after IV Dilaudid, and GI cocktail. She will be allowed home with antibiotics for UTI, pain and nausea medication. Lab Data 06/01/24 19:30 06/01/24 19:30 Labs/Radiology: Radiology Impressions Abdomen/Pelvis CT 06/01/24 20:55 IMPRESSION: 1. No evidence of nephrolithiasis or obstructive uropathy. 2. Mild diffuse bladder wall thickening may represent cystitis. Correlate with physical exam and laboratory findings. Laboratory Results WBC 7.99 10^3/uL (3.29-11.43) 06/01/24 19:30 RBC 4.53 10^6/uL (3.85-5.65) 06/01/24 19:30 Hgb 13.90 g/dL (11.27-16.99) 06/01/24: Hct 41.3 % (36-47) 06/01/24 19:30 MCV 91.2 fl (85-98) 06/01/24 19: MCH 30.7 pg (27-33) 06/01/24: MCHC 33.7 g/dL (30-55) 06/01/24 19:30 RDW 11.8 % (12.1-15.1) L 06/01/24 19: Plt Count 306 10^3/cmm (157-399) 06/01/24 19: MPV 10.2 fL (7.4-10.4) 06/01/24 19:30 Neut % (Auto) 64.4 % 06/01/24 19:30 Lymph % (Auto) 28.7 % 06/01/24 19:30 [place] % (Auto) 6.0 % 06/01/24 19:30 Eos % (Auto) 0.5 % 06/01/24 19:30 Baso % (Auto) 0.1 % 06/01/24 19:30 Neut # (Auto) 5.15 10^3/uL (1.8-7.7) 06/01/24 19: Lymph # (Auto) 2.3 10^3/uL (0.8-4.8) 06/01/24 19:30 [place] # (Auto) 0.5 10^3/uL (0.2-0.9) 06/01/24 19:30 Eos # (Auto) 0.0 10^3/uL (0.0-0.8) 06/01/24 19:30 Baso # (Auto) 0.0 10^3/uL (0.0-0.1) 06/01/24 19:30 Nucleated RBC % (auto) 0 % 06/01/24 19:30 Nucleated RBCs # 0.0 /100WBC 06/01/24 19:30 Sodium 142 mmol/L (136-145) 06/01/24 19:30 Potassium 3.7 mmol/L (3.5-5.1) 06/01/24 19:30 Chloride 104 mmol/L (98-107) 06/01/24 19:30 Carbon Dioxide 24 mmol/L (22-29) 06/01/24 19:30 Anion Gap 17.7 (5-19) 06/01/24 19:30 BUN 8 mg/dL (6-20) 06/01/24 19:30 Creatinine 0.7 mg/dL (0.5-0.9) 06/01/24 19:30 GFR Calculation 97.0 mL/min (90-130) 06/01/24 19:30 Glucose 94 mg/dL (65-115) 06/01/24 19:30 Calculated Osmolality 292 mOsm/kg (285-295) 06/01/24 19:30 Calcium 9.9 mg/dL (8.5-10.5) 06/01/24 19:30 Total Bilirubin 0.2 mg/dL (0.15-1.2) 06/01/24 19:30 AST 25 U/L (0-32) 06/01/24 19:30 ALT 47 U/L (0-33) H 06/01/24 19:30 Alkaline Phosphatase 122 U/L (35-105) H 06/01/24 19:30 Total Protein 8.3 g/dL (6.6-8.7) 06/01/24 19:30 Albumin 4.4 g/dL (3.5-5.2) 06/01/24 19:30 Globulin 3.9 g/dL (1.3-4.6) 06/01/24 19:30 Lipase 39 U/L (13-60) 06/01/24 19:30 HCG, Qual Negative (Negative) 06/01/24 19:30 Urine Color Yellow (Yellow) 06/01/24 19:15 Urine Appearance Turbid (CLEAR) A 06/01/24 19:15 Urine pH 5.5 (5-7) 06/01/24 19:15 Ur Specific [place] 1.013 (1.005-1.030) 06/01/24 19:15 Urine Protein 1+ (Negative) A 06/01/24 19:15 Urine Glucose (UA) Negative (Normal) 06/01/24 19:15 Urine Ketones Negative (Negative) 06/01/24 19:15 Urine Blood 2+ (Negative) A 06/01/24 19:15 Urine Nitrate Negative (Negative) 06/01/24 19:15 Urine Bilirubin Negative (Negative) 06/01/24 19:15 Urine Urobilinogen 0.2 mg/dL (Negative) 06/01/24 19:15 Ur Leukocyte Esterase 3+ (Negative) A 06/01/24 19:15 Urine RBC 6-10 /hpf (0-2) 06/01/24 19:15 Urine WBC >100 /hpf (0-5) H 06/01/24 19:15 Ur Squamous Epith Cells 0-5 /hpf (0-5) 06/01/24 19:15 Amorphous Sediment Not Reportable 06/01/24 19:15 Urine Bacteria 3+ /hpf (NONE) H 06/01/24 19:15 Hyaline Casts 1.21 /lpf 06/01/24 19:15 Coronavirus (PCR) Negative (Negative) 06/01/24 20:21 Influenza A (PCR) Negative (Negative) 06/01/24 20:21 Influenza Type B (PCR) Negative (Negative) 06/01/24 20:21 RSV (PCR) Negative (Negative) 06/01/24 20:21 All radiology interpretation(s) finalized by discharge Discharge Plan Discharge Patient Disposition: Home Clinical Impression: Urinary tract infection Condition: Stable Prescriptions: New cefdinir 300 mg capsule 300 mg PO BID Qty: 14 0RF ondansetron 4 mg tablet,disintegrating 4 mg PO Q6H PRN (Reason: nausea and vomiting) Qty: 14 0RF hydrocodone-acetaminophen 5-325 mg tablet 1 tab PO Q8H PRN (Reason: pain) Qty: 7 0RF No Action albuterol sulfate 90 mcg/actuation HFA aerosol inhaler 2 puff inhalation Q6H PRN (Reason: shortness of breath or wheezing) Qty: 8.5 0RF Discharge Orders: Discharge ED (Routine); Ordered 06/01/24 Ordered By: Tej Aguilar Referrals: Steven Walker MD [Primary Care Provider] - 4-7 days Patient Instructions: Urinary Tract Infection in Women (ED), Opioid Safety, Pain Management Activity Restrictions/Additional Instructions: Drink plenty of liquids. Antibiotics as directed. Use medication for pain and nausea as needed. Return for vomiting liquids or medications, fever despite 2-3 more doses of antibiotics, worsening pain despite treatment, other concerning symptoms. See your doctor next week. 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
[2024-06-01 20:27] VITALS: RESP 16; O2SAT 97
[2024-06-01] MEDS: ondansetron 2 mg/ML SDV 2 mL 4 MG IVP (20:27)
[2024-06-01] MEDS: morphine 4 mg/mL SDV 1 mL IVP (20:27)
[2024-06-01] MEDS: ketorolac 30 mg/mL INJ IVP (20:27)
[2024-06-01 20:33] LABS: Bilirubin Urine Negative (Negative); Blood Urine 2+ (Negative); Glucose Urine UA Negative (Normal); Ketones Urine Negative (Negative); Leukocyte Esterase Urine 3+ (Negative); Nitrate Urine Negative (Negative); Protein Urine 1+ (Negative); Specific Gravity, Urine 1.013 (1.005-1.030); Urine Appearance Turbid (CLEAR); Urine Color Yellow (Yellow); Urobilinogen Urine 0.2 mg/dL (Negative); pH Urine 5.5 (5-7)
[2024-06-01 20:38] LABS: Add Urine Microscopic? YES; Bacteria Urine 3+ /hpf; Hyaline Casts Urine 1.21 /lpf; Squamous Epithelial Cell Urine 0-5 /hpf (0-5); WBC Urine >100 /hpf (0-5)
[2024-06-01 20:53] LABS: Add Urine Culture? Yes
--- NOTE | 2024-06-01 20:55 | CTR_ITS ---
PROCEDURE INFORMATION: Exam: CT Abdomen And Pelvis Without Contrast Exam date and time: 06/01/2024 9:21 PM Age: 33 years old Clinical indication: Abdominal pain; Right; Prior surgery; Surgery date: 6+ months; Surgery type: Gb. Csection; Patient HX: RT flank pain with dysuria TECHNIQUE: Imaging protocol: Computed tomography of the abdomen and pelvis without contrast. Radiation optimization: All CT scans at this facility use at least one of these dose optimization techniques: automated exposure control; mA and/or kV adjustment per patient size (includes targeted exams where dose is matched to clinical indication); or iterative reconstruction. COMPARISON: CT abdomen pelvis w con* [id number] 03/29/2024 12:54 PM RADIATION DOSE METRICS: Total DLP (mGy-cm): 513.17 FINDINGS: Liver: Normal. No mass. Gallbladder and biliary ducts: Status post cholecystectomy. Normal caliber bile ducts. Pancreas: Normal. No ductal dilation. Spleen: Normal. No splenomegaly. Adrenal glands: Stable 8 mm low-attenuation left adrenal nodule, likely a benign adenoma. Kidneys and ureters: Normal. No hydronephrosis. Stomach and bowel: Unremarkable. No obstruction. No mucosal thickening. Appendix: No evidence of appendicitis. Intraperitoneal space: Unremarkable. No free air. No significant fluid collection. Vasculature: Unremarkable. No abdominal aortic aneurysm. Lymph nodes: Unremarkable. No enlarged lymph nodes. Urinary bladder: Mild diffuse bladder wall thickening. Reproductive: Unremarkable as visualized. Bones/joints: Unremarkable. No acute fracture. Soft tissues: Unremarkable. CT/CT kidney stone [id number] IMPRESSION: 1. No evidence of nephrolithiasis or obstructive uropathy. 2. Mild diffuse bladder wall thickening may represent cystitis. Correlate with physical exam and laboratory findings.
[2024-06-01] MEDS: lidocaine 2% viscous 15 ML, aluminum-mag hydrox-simethicon 30 ML, sucralfate oral liq 1 GM PO (21:06)
[2024-06-01 21:08] LABS: Covid PCR NEGATIVE (Negative); Influenza A NEGATIVE (Negative); Influenza B NEGATIVE (Negative); Respiratory Syncytial Virus Ce NEGATIVE (Negative)
[2024-06-01] MEDS: cefTRIAXone 1,000 mg SDV 1000 MG IVP (21:32)
[2024-06-01 21:45] VITALS: RESP 18; O2SAT 95
[2024-06-01] MEDS: HYDROmorphone 1 mg/mL INJ 1 mL IVP (21:45)
[2024-06-01 22:30] VITALS: BP 127/82; PULSE 85; O2SAT 98
== END 2024-06-01 23:14 | disposition home or self-care (01) ==
PROVIDERS: Emergency Medicine; Emergency Provider Emergency Medicine; PCP Family Medicine
DX: N39.0 Urinary tract infection, site not specified (principal); Z11.52 Encounter for screening for COVID-19; Z87.891 Personal history of nicotine dependence
CPT/HCPCS: 0241U; 36415; 74176; 80053; 81001; 83690; 84703; 85025; 87086; 87186; 96374; 96375; 99285; J0696; J1171; J1885; J2270; J2405

== ENCOUNTER 2024-06-13 19:10 | Day surgery (SDC) | payer SELFPAY ==
[2024-06-13 19:17] VITALS: BP 91/58; PULSE 70; RESP 16; TEMP 36.7; O2SAT 99; BMI 26.5
[2024-06-13 20:21] LABS: Basophils % 0.2 %; Eosinophils # 0.1 10^3/uL (0.0-0.8); Hematocrit 42.4 % (36-47); Lymphocytes # 1.7 10^3/uL (0.8-4.8); Lymphocytes % 26.6 %; Mean Corpuscular HGB Conc 30.9 g/dL (30-55); Mean Corpuscular Hemoglobin 31.1 pg (27-33); Mean Corpuscular Volume 100.7 fl (85-98); Mean Platelet Volume 10.2 fL (7.4-10.4); Monocytes # 0.3 10^3/uL (0.2-0.9); Nucleated Red Blood Cells % 0 %; Platelet Count 279 10^3/cmm (157-399); Red Blood Count 4.21 10^6/uL (3.85-5.65); Red Cell Distribution Width 11.8 % (12.1-15.1); White Blood Count 6.25 10^3/uL (3.29-11.43)
[2024-06-13 20:37] LABS: HCG, Serum Qual Negative (Negative)
[2024-06-13 20:47] LABS: Alanine Aminotransferase 179 U/L (0-33); Albumin Level 4.3 g/dL (3.5-5.2); Alkaline Phosphatase 205 U/L (35-105); Aspartate Amino Transferase 295 U/L (0-32); Blood Urea Nitrogen 6 mg/dL (6-20); Calcium 9.6 mg/dL (8.5-10.5); Carbon Dioxide 26 mmol/L (22-29); Chloride 102 mmol/L (98-107); Creatinine Clr Calc Pharmacy 89.8371; Globulin 2.8 g/dL (1.3-4.6); Glomerular Filtration Rate 83.1 mL/min (90-130); Glucose 102 mg/dL (65-115); Lipase 20 U/L (13-60); Osmolality Calculated 288 mOsm/kg (285-295); Sodium 140 mmol/L (136-145); Total Bilirubin 0.7 mg/dL (0.15-1.2); Total Protein 7.1 g/dL (6.6-8.7)
[2024-06-13 21:56] LABS: Bilirubin Urine Negative (Negative); Blood Urine Negative (Negative); Glucose Urine UA Negative (Normal); Ketones Urine Negative (Negative); Leukocyte Esterase Urine Trace (Negative); Nitrate Urine Negative (Negative); Protein Urine Negative (Negative); Urine Appearance Clear (CLEAR); Urine Color Yellow (Yellow); Urobilinogen Urine 0.2 mg/dL (Negative); pH Urine 5.5 (5-7)
--- NOTE | 2024-06-13 21:56 | CTR_ITS ---
PROCEDURE INFORMATION: Exam: CT Abdomen And Pelvis With Contrast Exam date and time: 06/13/2024 10:48 PM Age: 33 years old Clinical indication: Abdominal pain; Additional info: Rlq abdominal pain TECHNIQUE: Imaging protocol: Computed tomography of the abdomen and pelvis with contrast. Radiation optimization: All CT scans at this facility use at least one of these dose optimization techniques: automated exposure control; mA and/or kV adjustment per patient size (includes targeted exams where dose is matched to clinical indication); or iterative reconstruction. Contrast material: OMNI 350; Contrast volume: 100 ml; Contrast route: INTRAVENOUS (IV); COMPARISON: CT kidney stone [id number] 06/01/2024 9:21 PM RADIATION DOSE METRICS: Total DLP (mGy-cm): 549.34 FINDINGS: Lungs: The lung bases are clear. Heart: Heart size is within normal limits. There is no pericardial effusion or pericardial thickening. Liver: The liver is normal. No hepatic masses are identified. Gallbladder and biliary ducts: The gallbladder is surgically absent. There is no ductal dilatation. Pancreas: The pancreas is normal. Spleen: The spleen is normal. Adrenal glands: The adrenal glands are normal. Kidneys and ureters: There is normal enhancement of the kidneys. No renal calcifications are identified. There is no hydronephrosis. Stomach and bowel: There is no large or small bowel obstruction. There is no evidence of bowel wall thickening. Appendix: Focal thickening of the tip of the appendix measuring up to 10 mm with mild focal adjacent inflammatory change suggesting tip appendicitis. Intraperitoneal space: No pneumoperitoneum. No free fluid or fluid collections. Vasculature: The aorta is normal in course and caliber. No significant atherosclerotic calcifications are present. Incidental note is made of a retroaortic left renal vein. Lymph nodes: No enlarged lymph nodes are identified. Urinary bladder: The bladder is unremarkable. Reproductive: The uterus is present. Bones/joints: No acute osseous abnormalities are seen. Soft tissues: The soft tissues are within normal limits. CT/CT abdomen pelvis w con* [id number] IMPRESSION: Focal thickening of the tip of the appendix measuring up to 10 mm with mild focal adjacent inflammatory change suggesting tip appendicitis. No associated fluid collection.
--- NOTE | 2024-06-13 21:57 | ED_ITS ---
HPI - Abdominal Pain 2 General: Chief Complaint: Abdominal Pain Stated Complaint: abd pain(sent by [facility] ) Time Seen by Provider: 06/13/24 21:47 History of Present Illness: 33-year-old female who presents emergenc y room with right lower quadrant abdominal pain. This been going on for a day now. She was seen at [facility] initially told she had appendicitis. A surgeon at [facility] in [place] had reviewed the films and felt that it was not convincing and she was discharged. She came directly here. She still having right lower quadrant abdominal pain and nausea. Radiology report does indicate that she does have appendicitis Related Data Date of Last Menstrual Period: 06/03/24 Previous Rx's Medication Instructions Recorded albuterol sulfate 90 mcg/actuation 2 puff inhalation Q6H PRN 04/10/24 aerosol inhaler shortness of breath or wheezing #8.5 grams cefdinir 300 mg capsule 300 mg PO BID #14 caps 06/01/24 hydrocodone 5 mg-acetaminophen 325 1 tab PO Q8H PRN pain #7 tabs 06/01/24 mg tablet ondansetron 4 mg disintegrating 4 mg PO Q6H PRN nausea and 06/01/24 tablet vomiting #14 tabs Allergies Allergy/AdvReac Type Severity Reaction Status Date / Time metoclopramide [From Reglan] Allergy ADR-Anxiety Verified 06/13/24 19:24 Review of Systems 2 Narrative: Constitutional symptoms: Negative except as documented in HPI. Skin symptoms: Negative except as documented in HPI. Eye symptoms: Negative except as documented in HPI. ENMT symptoms: Negative except as documented in HPI. Respiratory symptoms: Negative except as documented in HPI. Cardiovascular symptoms: Negative except as documented in HPI. Gastrointestinal symptoms: Negative except as documented in HPI. Genitourinary symptoms: Negative except as documented in HPI. Musculoskeletal symptoms: Negative except as documented in HPI. Neurologic symptoms: Negative except as documented in HPI. Psychiatric symptoms: Negative except as documented in HPI. Endocrine symptoms: Negative except as documented in HPI. PFSH ED 2 PFSH: Medical History Cough Cerebrovascular accident Migraine headache Surgical History S/P section (04/27/20) RLTCS. Performed by Dr. Lopez at [facility] S/P laparoscopic cholecystectomy (~10/2019) Was at the time. S/P primary low transverse (08/03/14) [place] [facility] [place] Confirmed LTCS with 2 layer closure. Family History Denies family history of Diabetes Anesthesia complication Bleeding disorder Hypertension Stroke Social History Smoking and tobacco/nicotine status: former use of tobacco/nicotine Quit status (tobacco/nicotine): has quit using Year quit tobacco: 04/2019 Former quit date comment: Was smoking 1 PPD until switched to vaping in 2017. Quit in 04/2019. Alcohol intake: never Substance/Drug Use: never Female Reproductive History: Date of last menstrual period: 06/03/24 Para: 1 Spontaneous abortions: No Physical Exam 2 Narrative: EXAM NARRATIVE: General: Alert, no acute distress. Skin: Warm, dry. Head: Normocephalic, atraumatic. Neck: Supple, trachea midline. Eye: Extraocular movements are intact. Ears, nose, mouth and throat: Tacky oral mucosa Cardiovascular: Regular, Normal peripheral perfusion. Respiratory: Lungs are clear to auscultation, respirations are non-labored, breath sounds are equal, Symmetrical chest wall expansion. Gastrointestinal: Soft, right lower quadrant abdominal pain, Non distended Musculoskeletal: Normal ROM, no deformity. Neurological: Alert and oriented, No focal neurological deficit observed. Psychiatric: Cooperative, appropriate mood & affect. Course 2 Vital Signs: Vital signs: Vital Signs Temperature 98.0 F 06/13/24 19:17 Pulse Rate 80 06/14/24 00:05 Respiratory Rate 16 06/14/24 00:05 Blood Pressure 100/52 06/14/24 00:05 Pulse Oximetry 100 06/14/24 00:05 Oxygen Delivery Me thod Room Air 06/14/24 00:05 MDM - Abdominal Pain Medical Decision Making Medical decision making: Differential diagnosis for this patient with right lower quadrant abdominal pain including but not limited to and based on the above HPI, review of systems and physical exam: Ureterolithiasis. Urinary tract infection. Appendicitis. colitis. small bowel obstruction. Crohn's flare. Pancreatitis. Cholelithiasis or cholecystitis. Hepatitis. Diverticulitis. Constipation. ovarian cyst. ovarian torsion Workup: Orders were placed to evaluate differential diagnosis based on the above differential, HPI and exam: Lab Review: Laboratory results were reviewed and interpreted by myself the emergency room physician. No leukocytosis but she does have an elevated CRP at around 40. Urine is extremely concentrated. She also has 11-20 whites with 1+ bacteria. She is receiving antibiotics for the appendicitis CT of the abdomen pelvis with contrast shows focal thickening of the tip of the appendix suggesting tip appendicitis. I reviewed the patient's medical record Reexamination: Patient remained stable. No increased work of breathing. No altered mental status. No focal motor deficits. Still with some right lower quadrant pain Consultation: I spoke with Dr. Vega who is admitting the patient. Assessment and plan: Acute appendicitis Dehydration ?IV Zosyn, fluids -I discussed the patient with the hospitalist on-call who is admitting the patient. - Discussed findings and plan with patient. Answered any questions. - All laboratory values were reviewed and interpreted personally by myself, the ER physician - All imaging was reviewed and interpreted personally by myself, the ER physician. - Evaluation and treatment of this problem were appropriate in the emergency setting Lab Data 06/13/24 20:05 06/13/24 20:05 Labs/Radiology: Radiology Impressions Abdomen/Pelvis CT 06/13/24 21:56 IMPRESSION: Focal thickening of the tip of the appendix measuring up to 10 mm with mild focal adjacent inflammatory change suggesting tip appendicitis. No associated fluid collection. ADDENDUM: 06/14/24 0030 ADDENDUM: THIS REPORT CONTAINS FINDINGS THAT MAY BE CRITICAL TO PATIENT CARE. The findings were verbally communicated via telephone conference with MARCEL PIERSON at 12:29 AM LINEMAN on 06/14/2024. The findings were acknowledged and understood. Laboratory Results WBC 6.25 10^3/uL (3.29-11.43) 06/13/24 20:05 RBC 4.21 10^6/uL (3.85-5.65) 06/13/24 20:05 Hgb 13.10 g/dL (11.27-16.99) 06/13/24 20:05 Hct 42.4 % (36-47) 06/13/24 20:05 MCV 100.7 fl (85-98) H 06/13/24 20:05 MCH 31.1 pg (27-33) 06/13/24 20:05 MCHC 30.9 g/dL (30-55) 06/13/24 20:05 RDW 11.8 % (12.1-15.1) L 06/13/24 20:05 Plt Count 279 10^3/cmm (157-399) 06/13/24 20:05 MPV 10.2 fL (7.4-10.4) 06/13/24 20:05 Neut % (Auto) 67.0 % 06/13/24 20:05 Lymph % (Auto) 26.6 % 06/13/24 20:05 Kleberg % (Auto) 5.0 % 06/13/24 20:05 Eos % (Auto) 1.0 % 06/13/24 20:05 Baso % (Auto) 0.2 % 06/13/24 20:05 Neut # (Auto) 4.20 10^3/uL (1.8-7.7) 06/13/24 20:05 Lymph # (Auto) 1.7 10^3/uL (0.8-4.8) 06/13/24 20:05 Kleberg # (Auto) 0.3 10^3/uL (0.2-0.9) 06/13/24 20:05 Eos # (Auto) 0.1 10^3/uL (0.0-0.8) 06/13/24 20:05 Baso # (Auto) 0.0 10^3/uL (0.0-0.1) 06/13/24 20:05 Nucleated RBC % (auto) 0 % 06/13/24 20:05 Nucleated RBCs # 0.0 /100WBC 06/13/24 20:05 Sodium 140 mmol/L (136-145) 06/13/24 20:05 Potassium 4.0 mmol/L (3.5-5.1) 06/13/24 20:05 Chloride 102 mmol/L (98-107) 06/13/24 20:05 Carbon Dioxide 26 mmol/L (22-29) 06/13/24 20:05 Anion Gap 16.0 (5-19) 06/13/24 20:05 BUN 6 mg/dL (6-20) 06/13/24 20:05 Creatinine 0.8 mg/dL (0.5-0.9) 06/13/24 20:05 GFR Calculation 83.1 mL/min (90-130) L 06/13/24 20:05 Glucose 102 mg/dL (65-115) 06/13/24 20:05 Calculated Osmolality 288 mOsm/kg (285-295) 06/13/24 20:05 Calcium 9.6 mg/dL (8.5-10.5) 06/13/24 20:05 Total Bilirubin 0.7 mg/dL (0.15-1.2) 06/13/24 20:05 AST 295 U/L (0-32) H 06/13/24 20:05 ALT 179 U/L (0-33) H 06/13/24 20:05 Alkaline Phosphatase 205 U/L (35-105) H 06/13/24 20:05 Total Protein 7.1 g/dL (6.6-8.7) 06/13/24 20:05 Albumin 4.3 g/dL (3.5-5.2) 06/13/24 20:05 Globulin 2.8 g/dL (1.3-4.6) 06/13/24 20:05 Lipase 20 U/L (13-60) 06/13/24 20:05 HCG, Qual Negative (Negative) 06/13/24 20:05 Urine Color Yellow (Yellow) 06/13/24 20:40 Urine Appearance Clear (CLEAR) 06/13/24 20:40 Urine pH 5.5 (5-7) 06/13/24 20:40 Ur Specific Nichols 1.097 (1.005-1.030) H 06/13/24 20:40 Urine Protein Negative (Negative) 06/13/24 20:40 Urine Glucose (UA) Negative (Normal) 06/13/24 20:40 Urine Ketones Negative (Negative) 06/13/24 20:40 Urine Blood Negative (Negative) 06/13/24 20:40 Urine Nitrate Negative (Negative) 06/13/24 20:40 Urine Bilirubin Negative (Negative) 06/13/24 20:40 Urine Urobilinogen 0.2 mg/dL (Negative) 06/13/24 20:40 Ur Leukocyte Esterase Trace (Negative) A 06/13/24 20:40 Urine RBC 0-2 /hpf (0-2) 06/13/24 20:40 Urine WBC 11-20 /hpf (0-5) H 06/13/24 20:40 Ur Squamous Epith Cells 11-20 /hpf (0-5) 06/13/24 20:40 Amorphous Sediment Not Reportable 06/13/24 20:40 Urine Bacteria 1+ /hpf (NONE) H 06/13/24 20:40 Hyaline Casts 0-4 /lpf H 06/13/24 20:40 All radiology interpretation(s) finalized by discharge Discharge Plan Discharge Patient Disposition: Admitted As Inpatient Clinical Impression: Acute appendicitis Condition: Stable Coding Level of Care Code ED Foreign Language Stenographer for Molly Miles
[2024-06-13 22:01] LABS: Add Urine Microscopic? YES; Bacteria Urine 1+ /hpf; Hyaline Casts Urine 0-4 /lpf; RBC Urine 0-2 /hpf (0-2); Universal Test for UA Present (0)
[2024-06-13 22:05] VITALS: BP 118/78; PULSE 65; RESP 20; O2SAT 100
[2024-06-13 22:24] LABS: Add Urine Culture? No; Specific Gravity, Urine 1.097 (1.005-1.030)
[2024-06-13] MEDS: iohexol 350 mg/mL 500 mL Btl (per mL) IV (23:00)
[2024-06-14] VITALS (32 sets, daily range): BP systolic 87–126; BP diastolic 49–75; PULSE 64–125; RESP 14–22; TEMP 36.5–36.6; O2SAT 96–100
[2024-06-14] MEDS: piperacillin-tazobactam 4.5 GM in sodium chloride 0.9% (plus) 50 ML IV (00:57)
[2024-06-14] MEDS: sodium chloride 0.9% 1,000 ML 999 ML IV (00:57)
[2024-06-14] MEDS: sodium chloride 0.9% 1,000 ML 100 ML IV (04:33)
[2024-06-14] MEDS: morphine 4 mg/mL SDV 1 mL IVP (05:02)
[2024-06-14] MEDS: ketorolac 30 mg/mL INJ IVP (06:14)
--- NOTE | 2024-06-14 07:27 | PM.HP ---
Providers/Chief Complaint Admitting Physician: Juwan Stubbs MD Primary Care Provider: Steven Walker MD Chief Complaint: abd pain(sent by [facility] ) History of Present Illness Shana Mayberry is a 33 year old female Who presents to the hospital with abdominal pain in the right lower quadrant, she had similar episodes in the past. Went to an outside clinic was told she had acute appendicitis by acute manage await p.o. antibiotics. Presented for second opinion to our hospital. CT scan shows acute appendicitis inflammation of the tip of the appendix. Review of Systems General: Reports: 10 or more systems reviewed and unremarkable except in HPI and below Medications/Allergies Home Medications Medication Instructions Recorded Confirmed Last Taken Type albuterol sulfate 90 mcg/actuation 2 puff inhalation Q6H PRN 04/10/24 06/14/24 Unknown Rx aerosol inhaler shortness of breath or wheezing #8.5 grams Allergies Allergy/AdvReac Type Severity Reaction Status Date / Time metoclopramide [From Reglan] Allergy ADR-Anxiety Verified 06/13/24 19:24 PFSH Acute PFSH: Medical History Cough Cerebrovascular accident Migraine headache Surgical History S/P section (04/27/20) RLTCS. Performed by Dr. Lopez at [facility] S/P laparoscopic cholecystectomy (~10/2019) Was at the time. S/P primary low transverse (08/03/14) Per[place]. Lopez [place] [facility] [place] [place], [place]. Confirmed LTCS with 2 layer closure. Family History Denies family history of Diabetes Anesthesia complication Bleeding disorder Hypertension Stroke Social History Smoking and tobacco/nicotine status: former use of tobacco/nicotine Quit status (tobacco/nicotine): has quit using Year quit tobacco: 04/2019 Former quit date comment: Was smoking 1 PPD until switched to vaping in 2017. Quit in 04/2019. Alcohol intake: never Substance/Drug Use: never Female Reproductive History: Date of last menstrual period: 06/03/24 Para: 1 Spontaneous abortions: No Vitals/I&O/Wt Last Vital Signs Temp 98.0 F 06/13/24 19:17 Pulse 78 06/14/24 06:30 Resp 16 06/14/24 05:02 BP 88/59 06/14/24 06:30 Pulse Ox 100 06/14/24 06:30 O2 Del Method Room Air 06/14/24 06:30 06/13/24 06/14/24 06/14/24 22:59 06:59 14:59 Intake Total 0 / 0 1050 / 1050 Balance 0 / 0 1050 / 1050 Weight last 48 hrs Weight 145 lb Physical Exam Narrative: General : Patient is well developed , no acute distress, oriented x3 Head : Normal cephalic, a-traumatic. Nose : Mucous membranes are without erythema. Lungs : Equal chest rise bilaterally, no use of accessory muscles, trachea is midline. CV : Rate and rhythm are normal. Abdomen : Soft, Minimal tenderness in right lower quadrant. Extremities : No edema. Upper extremities are normal bilaterally. Back : non-tender to palpation, no CVA tenderness. Data 06/13/24 20:05 06/13/24 20:05 A&P Assessment and plan (1) Acute appendicitis: Plan After complete history physical assessment and review of all available clinical data the following is my assessment. Patient does have acute pharyngitis, will benefit from appendectomy, I discussed all risk benefits of a laparoscopic possible open appendectomy including the injury to surrounding structures, hernia, need for additional interventions, abscess formation, need for IR drainage, worsening abdominal pain, injury to the ureter or the bladder the small bowel. Conversion to open procedure. After discussion of risk benefits documented patient decided to proceed with surgery. We will book patient for procedure today, she will likely be able to transition to the outpatient setting in the immediate postoperative period Attestations Medical Necessity Statement*: Patient will require admission to hospital for acute appendicitis Coding Level of Care Code Acute Code for [facility] Diagnoses Acute appendicitis K35.80
[2024-06-14] MEDS: piperacillin-tazobactam 3.375 GM in sodium chloride 0.9% (plus) 50 ML IV (08:56)
--- NOTE | 2024-06-14 13:51 | ANES.PREANE2 ---
Pre-Anesthetic Assessment Height/Weight: Height 1.57 m Weight 65.771 kg Temp Pulse Resp BP Pulse Ox O2 Del Method 98.0 F 65 18 105/66 100 Room Air 06/13/24 19:17 06/14/24 09:48 06/14/24 09:21 06/14/24 12:01 06/14/24 12:01 06/14/24 12:01 Operation Date: 06/14/24 13:20 Proposed Procedures p Laparoscopic Appendectomy(Not Applicable) - Juwan Stubbs MD Familial anesthetic complications: None Was Beta Florentino taken within 24 hours: N/A Was Clonidine taken within 24 hours: N/A Last intake: > 8 hrs Social Tobacco (Vapes) and No alcohol Exam alert, oriented x 3, clear to auscultation bilaterally and regular rate & rhythm Airway Mallampati: Class II Dentition: partials Pulmonary Asthma Neuropsych Cerebrovascular Accident (/covid -induced; 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) Anesthetic Plan ASA status: 2 Anesthesia: General Risk of > 500 ml blood loss (7ml/kg in children): No Medications/Allergies Home Medications Medication Instructions Recorded Confirmed Last Taken Type albuterol sulfate 90 mcg/actuation 2 puff inhalation Q6H PRN 04/10/24 06/14/24 Unknown Rx aerosol inhaler shortness of breath or wheezing #8.5 grams Allergies Allergy/AdvReac Type Severity Reaction Status Date / Time metoclopramide [From Reglan] Allergy ADR-Anxiety Verified 06/13/24 19:24 Current Medications Generic Name Dose Route Start Last Admin Trade Name Freq PRN Reason Stop Dose Admin Sodium Chloride 1,000 mls @ 100 mls/hr 06/14/24 00:30 06/14/24 04:33 Sodium Chloride 0.9% IV 100 mls/hr .Q10H ALEXIA Administration Piperacillin Sod/Tazobactam 50 mls @ 12.5 mls/hr 06/14/24 09:00 06/14/24 08:56 Sod 3.375 gm/ Sodium Chloride IV 12.5 mls/hr Q8H ALEXIA Administration Morphine Sulfate 4 mg 06/14/24 04:53 06/14/24 05:02 Morphine 4 Mg/Ml Sdv 1 Ml IVP 4 mg Q4H PRN Administration SEVERE PAIN PFSH Anesthesia Medical History Cough Cerebrovascular accident Migraine headache Surgical History S/P section (04/27/20) RLTCS. Performed by Dr. Lopez at [facility] S/P laparoscopic cholecystectomy (~10/2019) Was at the time. S/P primary low transverse (08/03/14) [place] [facility] [place] Confirmed LTCS with 2 layer closure. Family History Denies family history of Diabetes Anesthesia complication Bleeding disorder Hypertension Stroke Social History Smoking and tobacco/nicotine status: former use of tobacco/nicotine Quit status (tobacco/nicotine): has quit using Year quit tobacco: 04/2019 Former quit date comment: Was smoking 1 PPD until switched to vaping in 2017. Quit in 04/2019. Alcohol intake: never Substance/Drug Use: never Female Reproductive History Date of last menstrual period: 06/03/24 Para: 1 Spontaneous abortions: No Data Anesthesia 06/13/24 20:05 06/13/24 20:05 Short CBC 06/13/24 Range/Units 20:05 WBC 6.25 (3.29-11.43) 10^3/uL Hgb 13.10 (11.27-16.99) g/dL Hct 42.4 (36-47) % MCV 100.7 H (85-98) fl Plt Count 279 (157-399) 10^3/cmm Neut % (Auto) 67.0 % Neut # (Auto) 4.20 (1.8-7.7) 10^3/uL BMP 06/13/24 20:05 Sodium 140 Potassium 4.0 Chloride 102 Carbon Dioxide 26 BUN 6 Creatinine 0.8 Glucose 102 Calcium 9.6 Liver Function 06/13/24 Range/Units 20:05 Total Bilirubin 0.7 (0.15-1.2) mg/dL AST 295 H (0-32) U/L ALT 179 H (0-33) U/L Alkaline Phosphatase 205 H (35-105) U/L Albumin 4.3 (3.5-5.2) g/dL Urine 06/13/24 Range/Units 20:40 Urine Color Yellow (Yellow) Urine Appearance Clear (CLEAR) Urine pH 5.5 (5-7) Ur Specific [place] 1.097 H (1.005-1.030) Urine Protein Negative (Negative) Urine Glucose (UA) Negative (Normal) Urine Ketones Negative (Negative) Urine Nitrate Negative (Negative) Urine Bilirubin Negative (Negative) Ur Leukocyte Esterase Trace A (Negative) Urine RBC 0-2 (0-2) /hpf Urine WBC 11-20 H (0-5) /hpf Cardiac Studies: No Data to Display
[2024-06-14] MEDS: BUPivacaine 0.25% INJ 10 mL INJECTION (14:21)
[2024-06-14] MEDS: lidocaine-epi 1% 20 mL INJ INJECTION (14:22)
--- NOTE | 2024-06-14 15:17 | PM.OP ---
Operative Report Date of procedure: June 14, 2024 Pre-op diagnosis: Acute appendicitis Post-op diagnosis: Same Post-op findings: Minimal inflammation of the tip of the appendix the rest of the body and base of the appendix appeared healthy Procedure done: Laparoscopic appendectomy Specimens removed/disposition: Appendix Surgeon: Juwan Stubbs MD Range Conservationist: SADIA OR STaff Estimated blood loss: 10 Complications: none apparent Brief History: This is a 33-year-old female who presents to the hospital with abdominal pain CT scan show evidence of acute appendicitis. Will proceed to the operating room for laparoscopic appendectomy after discussion of all risk and benefits. Procedure: Patient was brought into the OR, she was placed in a supine position. General anesthesia was given. The abdomen was prepped and draped in usual sterile fashion. The abdomen was accessed in the left upper quadrant with an Optiview 5 mm trocar, initial pneumoperitoneum was obtained and no evidence of visceral injury during entry was noted. A total millimeter trocar was placed in the supraumbilical position under direct visualization another 5 mm trocar was placed in the suprapubic position under direct visualization. The patient was placed in steep Trendelenburg position with the left side down. The appendix was identified in the anatomical location in the right lower quadrant, the tip of the appendix was inflamed there was a small inflammatory adhesions between the tip of the appendix and one of the pericolonic fat pads that was lysed with LigaSure. I then proceeded to take down the mesoappendix from the tip to the base using LigaSure, good hemostasis was verified, the base of the appendix was healthy and I proceeded to transected with a 45 mm blue load Endo HEMA stapler. The specimen was retrieved through the umbilical trocar site. The staple line appeared healthy and the area appeared hemostatic. I desufflated the abdomen for 2 minutes and then reinsufflated to verify hemostasis. I then proceeded to close the umbilical trocar site using Kevin-Papi suture passer under direct visualization with a 0 Vicryl. I then remove the suprapubic trocar under direct visualization, the left upper quadrant trocar was used to acquire the pneumoperitoneum and subsequently removed. Local anesthesia was infiltrated in all wounds. The wounds were closed in layers with #3-0 Vicryl for the subcutaneous tissue and #4 Monocryl for the skin. Dermabond was applied. At the end of the procedure all counts were correct, the patient tolerated well the procedure once transferred to the PACU in stable condition.
[2024-06-14] MEDS: acetaminophen 1,000 MG/100 ML PIGGYBACK 400 MG IV (15:30)
[2024-06-14] MEDS: fentaNYL 50 mcg/mL INJ 2mL IVP (15:34)
[2024-06-14] MEDS: oxyCODONE-APAP 5-325 mg Tablet 1 TAB PO (16:17)
== END 2024-06-14 16:53 | disposition home or self-care (01) ==
LOC: ER 06-14 00:35 → ER IP 06-14 06:17 → OR 06-14 13:36
PROVIDERS: Emergency Medicine; Emergency Provider Emergency Medicine; PCP Family Medicine; Visit Provider Surgery
PROC: 0DTJ4ZZ Resection of Appendix, Percutaneous Endoscopic Approach (ICD-10-PCS; CPT 44970; principal; 2024-06-14 13:10)
DX: K35.80 Unspecified acute appendicitis (principal); Z87.891 Personal history of nicotine dependence; Z86.73 Personal history of transient ischemic attack (TIA), and cerebral infarction without residual deficits
CPT/HCPCS: 44970; 36415; 74177; 80053; 81001; 83690; 84703; 85025; 88304; J0131; J0330; J1100; J1885; J2250; J2270; J2371; J2405; J2543; J2704; J3010; J3490; J7030

== ENCOUNTER 2024-07-26 09:37 | Emergency (ER) | payer SELFPAY ==
--- NOTE | 2024-07-26 09:39 | ECG_ITS ---
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 Measurements Intervals [place] Rate: 97 P: 48 VA: 139 QRS: 62 QRSD: 85 T: -56 QT: 314 QTc: 400 Interpretive Statements SINUS RHYTHM ST DEVIATION AND MODERATE T-WAVE ABNORMALITY, CONSIDER ANTEROLATERAL ISCHEMIA [-0.1+ mV T-WAVE IN V3-V6] ST DEVIATION AND MODERATE T-WAVE ABNORMALITY, CONSIDER INFERIOR ISCHEMIA [-0.1+ mV T-WAVE IN II/aVF] Compared to ECG 11/12/2020 08:33:06 Possible ischemia now present Sinus arrhythmia no longer present T-wave abnormality still present Electronically Signed On 07-26-2024 10:34:22 NICKER AND BREAKER by Sachin Judge M.D. [email or web address]
--- NOTE | 2024-07-26 09:47 | XR_ITS ---
WS: [id number] Exam: XR chest 1V portable [id number] Date/Time of Exam: 07/26/2024 10:06 AM Reason For Exam: cp Comparison 05/07/2023. The lungs are fully inflated and clear. Normal cardiomediastinal silhouette and regional bony element s. No pleural effusions. XR/XR chest 1V portable [id number] IMPRESSION: 1. Normal chest.
[2024-07-26 09:52] VITALS: BP 108/65; PULSE 85; RESP 18; TEMP 36.7; O2SAT 100; BMI 26.4
[2024-07-26 10:04] LABS: Basophils % 0.4 %; Eosinophils # 0.1 10^3/uL (0.0-0.8); Eosinophils % 0.9 %; Hematocrit 38.7 % (36-47); Lymphocytes # 3.1 10^3/uL (0.8-4.8); Lymphocytes % 57.7 %; Mean Corpuscular HGB Conc 33.3 g/dL (30-55); Mean Corpuscular Hemoglobin 30.6 pg (27-33); Mean Corpuscular Volume 91.7 fl (85-98); Mean Platelet Volume 9.9 fL (7.4-10.4); Monocytes # 0.3 10^3/uL (0.2-0.9); Monocytes % 5.3 %; Neutrophils # 1.88 10^3/uL (1.8-7.7); Neutrophils % 35.5 %; Nucleated Red Blood Cells % 0 %; Platelet Count 244 10^3/cmm (157-399); Red Blood Count 4.22 10^6/uL (3.85-5.65); Red Cell Distribution Width 12.3 % (12.1-15.1)
--- NOTE | 2024-07-26 10:09 | ED_ITS ---
HPI - SOB/Dyspnea 2 General: Chief Complaint: Shortness of Breath/Dyspnea Stated Complaint: Sob, chest pounding Time Seen by Provider: 07/26/24 09:51 Source: patient Mode of arrival: ambulatory Limitations: no limitations History of Present Illness: HPI Narrative: 33-year-old female who states over the l ast week she has been having cough congestion states that she has now been having some sharp chest pains as well states the pain is worse with inspiration and palpation and her cough. She denies any fever denies any vomiting denies any diarrhea. Associated symptoms: Reports chest pain; Deny abdominal pain, fever(s), nausea or vomiting Related Data Previous Rx's Medication Instructions Recorded albuterol sulfate 90 mcg/actuation 2 puff inhalation Q6H PRN 04/10/24 aerosol inhaler shortness of breath or wheezing #8.5 grams naproxen 500 mg tablet (Naprosyn) 500 mg PO BID PRN pain #20 tabs 07/26/24 Allergies Allergy/AdvReac Type Severity Reaction Status Date / Time metoclopramide [From Reglan] Allergy ADR-Anxiety Verified 06/25/24 09:36 Review of Systems 2 Const: Denies: fever(s), chills, body aches or change in appetite ENMT: Denies: throat pain or dental pain Card: Reports: chest pain Resp: Denies: dyspnea GI: Denies: abdominal pain, nausea, vomiting or diarrhea Musc: Denies: neck pain or back pain Skin/Breast: Denies: rash Neuro: Denies: headache(s) PFSH ED 2 PFSH: Medical History Cough Cerebrovascular accident Migraine headache Surgical History S/P section (04/27/20) RLTCS. Performed by Dr. Lopez at [facility] S/P laparoscopic cholecystectomy (~10/2019) Was at the time. S/P primary low transverse (08/03/14) Performed by Dr. Lopez at [facility] in [place], [place]. Confirmed LTCS with 2 layer closure. Family History Denies family history of Diabetes Anesthesia complication Bleeding disorder Hypertension Stroke Social History Smoking and tobacco/nicotine status: current every day tobacco/nicotine user (vapes daily) Quit status (tobacco/nicotine): has quit using Year quit tobacco: 04/2019 Former quit date comment: Was smoking 1 PPD until switched to vaping in 2018. Quit in 04/2019. Alcohol intake: never Substance/Drug Use: never Female Reproductive History: Para: 1 Spontaneous abortions: No Physical Exam 2 Const: COMMON NORMALS: no acute distress, patient oriented x3 and healthy appearing HENMT: COMMON NORMALS: normocephalic and atraumatic HEAD & SCALP: n ormocephalic and atraumatic Neck/C-Spine: COMMON NORMALS: full ROM and supple Chest: COMMONS NORMALS: normal inspection of the chest OTHER: Tenderness to center of her chest reproduces her pain Resp: COMMON NORMALS: normal respiratory effort Cardio: COMMON NORMALS: regular rate and regular rhythm RATE: regular rate RHYTHM: regular rhythm Extremity: COMMON NORMALS: normal to inspection and full ROM Neuro: COMMON NORMALS: patient oriented x3, moves all extremities and no focal motor deficits Psych: COMMON NORMALS: mental status grossly normal, Normal thought process present and cooperative THOUGHT PROCESS: Normal thought process present Skin: COMMON NORMALS: no rashes or lesions noted and no wounds GENERAL SKIN EXAM: no rashes or lesions noted Course 2 Vital Signs: Vital signs: Vital Signs Temperature 98.0 F 07/26/24 09:52 Pulse Rate 85 07/26/24 09:52 Respiratory Rate 18 07/26/24 09:52 Blood Pressure 108/65 07/26/24 09:52 Pulse Oximetry 100 07/26/24 09:52 Oxygen Delivery Me thod Room Air 07/26/24 09:52 MDM - SOB/Dyspnea Medical Decision Making Patient presents here with chest wall pain also cough she has been well- appearing here D-dimer was elevated CTA showed no signs of pneumonia or pulmonary embolism she feels improved will prescribe Naprosyn she is to follow- up PCP return if worsening. Medical Records I reviewed the patient's medical records. Lab Data I reviewed the patient's lab results. 07/26/24 09:57 07/26/24 09:57 Labs/Radiology: Radiology Impressions Chest X-Ray 07/26/24 09:47 IMPRESSION: 1. Normal chest. Chest CTA 07/26/24 10:23 IMPRESSION: 1. No evidence of pulmonary embolus. 2. Lungs are well aerated. 3. No acute findings. Laboratory Results WBC 5.30 10^3/uL (3.29-11.43) 07/26/24 09:57 RBC 4.22 10^6/uL (3.85-5.65) 07/26/24 09:57 Hgb 12.90 g/dL (11.27-16.99) 07/26/24 09:57 Hct 38.7 % (36-47) 07/26/24 09:57 MCV 91.7 fl (85-98) 07/26/24 09:57 MCH 30.6 pg (27-33) 07/26/24 09:57 MCHC 33.3 g/dL (30-55) 07/26/24 09:57 RDW 12.3 % (12.1-15.1) 07/26/24 09:57 Plt Count 244 10^3/cmm (157-399) 07/26/24 09:57 MPV 9.9 fL (7.4-10.4) 07/26/24 09:57 Neut % (Auto) 35.5 % 07/26/24 09:57 Lymph % (Auto) 57.7 % 07/26/24 09:57 [place] % (Auto) 5.3 % 07/26/24 09:57 Eos % (Auto) 0.9 % 07/26/24 09:57 Baso % (Auto) 0.4 % 07/26/24 09:57 Neut # (Auto) 1.88 10^3/uL (1.8-7.7) 07/26/24 09:57 Lymph # (Auto) 3.1 10^3/uL (0.8-4.8) 07/26/24 09:57 [place] # (Auto) 0.3 10^3/uL (0.2-0.9) 07/26/24 09:57 Eos # (Auto) 0.1 10^3/uL (0.0-0.8) 07/26/24 09:57 Baso # (Auto) 0.0 10^3/uL (0.0-0.1) 07/26/24 09:57 Nucleated RBC % (auto) 0 % 07/26/24 09:57 Nucleated RBCs # 0.0 /100WBC 07/26/24 09:57 D-Dimer 1.43 ug/mLFEU (0-0.59) H 07/26/24 09:57 Sodium 143 mmol/L (136-145) 07/26/24 09:57 Potassium 3.7 mmol/L (3.5-5.1) 07/26/24 09:57 Chloride 107 mmol/L (98-107) 07/26/24 09:57 Carbon Dioxide 22 mmol/L (22-29) 07/26/24 09:57 Anion Gap 17.7 (5-19) 07/26/24 09:57 BUN 7 mg/dL (6-20) 07/26/24 09:57 Creatinine 0.7 mg/dL (0.5-0.9) 07/26/24 09:57 GFR Calculation 97.0 mL/min (90-130) 07/26/24 09:57 Glucose 106 mg/dL (65-115) 07/26/24 09:57 Calculated Osmolality 294 mOsm/kg (285-295) 07/26/24 09:57 Calcium 8.9 mg/dL (8.5-10.5) 07/26/24 09:57 Total Bilirubin 0.2 mg/dL (0.15-1.2) 07/26/24 09:57 AST 30 U/L (0-32) 07/26/24 09:57 ALT 24 U/L (0-33) 07/26/24 09:57 Alkaline Phosphatase 87 U/L (35-105) 07/26/24 09:57 Troponin T Baseline < 6 ng/L (0-10) 07/26/24 09:57 NT-Pro-B Natriuret Pep < 36 pg/mL (0-125) 07/26/24 09:57 Total Protein 6.3 g/dL (6.6-8.7) L 07/26/24 09:57 Albumin 4.2 g/dL (3.5-5.2) 07/26/24 09:57 Globulin 2.1 g/dL (1.3-4.6) 07/26/24 09:57 Lipase 37 U/L (13-60) 07/26/24 09:57 HCG, Qual Negative (Negative) 07/26/24 09:57 All radiology interpretation(s) finalized by discharge EKG Data EKG 1: I personally reviewed and interpreted this EKG as follows: EKG Interpretation Date: 07/26/24 EKG interpretation time: 09:39 Interpretation: nsr hr [address] elevation qrs 85 qtc 369 Discharge Plan Discharge Patient Disposition: Home Clinical Impression: Chest wall pain Condition: Stable Prescriptions: New naproxen [Naprosyn] 500 mg tablet 500 mg PO BID PRN (Reason: pain) Qty: 20 0RF No Action albuterol sulfate 90 mcg/actuation HFA aerosol inhaler 2 puff inhalation Q6H PRN (Reason: shortness of breath or wheezing) Qty: 8.5 0RF Discharge Orders: Discharge ED (Routine); Ordered 07/26/24 Ordered By: Micheal Adames Referrals: Steven Walker MD [Primary Care Provider] - 4-7 days Discharge Diet: Advance as tolerated Discharge Activity: Resume usual activity Patient Instructions: Chest Wall Pain (ED) Coding Level of Care Code ED Head Mixer for Molly Miles
[2024-07-26 10:16] LABS: HCG, Serum Qual Negative (Negative)
[2024-07-26 10:19] LABS: D Dimer 1.43 ug/mLFEU (0-0.59)
[2024-07-26 10:21] LABS: Troponin(5th) Baseline < 6 ng/L (0-10)
--- NOTE | 2024-07-26 10:23 | CT_ITS ---
WS: [id number] CTA OF THE CHEST WITH PULMONARY EMBOLISM PROTOCOL TECHNIQUE: High-resolution contrast enhanced CTA of the chest with coronal and sagittal reformatted i mages with pulmonary embolism protocol. MIP images are also reviewed. CLINICAL INFORMATION: sob COMPARISON: None. DLP: 272.[address] scans at [facility] use at least one of these dose optimization techniques: automated e xposure control; mA and/or kV adjustment per patient size (includes targeted exams where dose is matc hed to clinical indication); or iterative reconstruction. FINDINGS: Proximal main pulmonary arteries are normal. Normal segmental and subsegmental pulmonary arteries. No evidence of pulmonary embolus. Normal caliber thoracic aorta. No mediastinal or hilar lymphadenopathy. No axillary lymphadenopathy. Cholecystectomy clips. Normal GE junction. Normal RIGHT adrenal gland. LEFT adrenal nodule likely tamia noma measuring 11 mm. No acute pulmonary infiltrates. No focal pneumonia or pleural fluid. Minimal atelectasis in the lung bases. CT/CT angio chest PE protcl [id number] IMPRESSION: 1. No evidence of pulmonary embolus. 2. Lungs are well aerated. 3. No acute findings.
[2024-07-26 10:31] LABS: Alanine Aminotransferase 24 U/L (0-33); Albumin Level 4.2 g/dL (3.5-5.2); Alkaline Phosphatase 87 U/L (35-105); Anion Gap 17.7 (5-19); Aspartate Amino Transferase 30 U/L (0-32); Blood Urea Nitrogen 7 mg/dL (6-20); Calcium 8.9 mg/dL (8.5-10.5); Carbon Dioxide 22 mmol/L (22-29); Chloride 107 mmol/L (98-107); Globulin 2.1 g/dL (1.3-4.6); Glucose 106 mg/dL (65-115); Lipase 37 U/L (13-60); NT Pro B Type Natriuretic Pept < 36 pg/mL (0-125); Osmolality Calculated 294 mOsm/kg (285-295); Potassium 3.7 mmol/L (3.5-5.1); Sodium 143 mmol/L (136-145); Total Bilirubin 0.2 mg/dL (0.15-1.2); Total Protein 6.3 g/dL (6.6-8.7)
[2024-07-26] MEDS: ketorolac 30 mg/mL INJ IVP (10:34)
[2024-07-26] MEDS: iohexol 350 mg/mL 500 mL Btl (per mL) IV (10:47)
[2024-07-26] MEDS: dexamethasone 10 mg/mL INJ IVP (11:28)
[2024-07-26 11:40] VITALS: BP 105/66; PULSE 76; O2SAT 98
[2024-07-26 12:21] LABS: Covid PCR NEGATIVE (Negative); Influenza A NEGATIVE (Negative); Influenza B NEGATIVE (Negative); Respiratory Syncytial Virus Ce NEGATIVE (Negative)
== END 2024-07-26 11:43 | disposition home or self-care (01) ==
PROVIDERS: Emergency Provider Emergency Medicine; PCP Family Medicine
DX: R07.89 Other chest pain (principal)
CPT/HCPCS: 36415; 71045; 71275; 80053; 83690; 83880; 84484; 84703; 85025; 85378; 87637; 93005; 96374; 96375; 99285; J1100; J1885

== ENCOUNTER 2025-01-02 02:14 | Emergency (ER) | payer SELFPAY ==
--- OUTSIDE RECORDS SUMMARY | 2025-01-02 02:20 | XMS_ITS | Clinical Summary ---
Author Organization [facility] Address [address] [place] [address] Phone Care Team Providers Care Button Puncher Name Role Phone Unavailable Primary Care Provider Unavailabl e Allergies Active Allergy Reactions Criticality Noted Date Comments Metoclopramide Hcl Anxiety Low 06/13/2024 Panic attack Medications blood sugar diagnostic StripIndications :Gestational diabetes mellitus, class A1,31 weeks gestation of Test blood sugar fasting and after each meal. 120 Strip 0 Active lancets 30 gaugeIndications :Gestational diabetes mellitus, class A1,31 weeks gestation of Check blood sugar 4 times daily 120 Each 0 Active Blood-Glucose Meter KitIndications:G estational diabetes mellitus, class A1,31 weeks gestation of Test blood sugars 4 times daily 1 Each 0 0 Active Insulin Syringe-Needle U-100 0.5 mL 31 gauge x 5/16 SyringeIndicatio ns:Insulin controlled gestational diabetes mellitus (GDM) in third trimester Use with insulin up to 4 times daily. 120 Each 5 0 Active acetaminophen (TYLENOL) 500 mg tablet Take 2 Tablets (1,000 mg) by mouth every 8 hours as needed for Temperature (temp equal to or greater than 100.4). 0 Active HYDROcodone-acet aminophen (NORCO) 5-325 mg tablet Take 1 Tablet by mouth every 4 hours as needed for Pain, Moderate. Active Active Problems Problem Noted Date Diagnosed Date Acute appendicitis with loca lized peritonitis, without perforation, abscess, or gangrene 06/13/2024 EDGARDO (acute kidney injury) 04/16/2020 Acute bronchitis 04/16/2020 E. coli urinary tract infection 04/16/2020 Elevated liver enzymes 04/15/2020 Dehydration 04/15/2020 Hypokalemia 04/15/2020 Decreased urine output 04/15/2020 Lab test positive for detection of COVID-19 viru s 04/08/2020 Decreased movements in third trimester COVID-19 virus detected 04/05/2020 Nausea and vomiting 04/05/2020 Dyspnea 04/05/2020 Influenza vaccine refused 03/27/2020 Insulin controlled gestation al diabetes mellitus (GDM) in third trimester 03/26/2020 Tetanus, diphtheria, and sal llular pertussis (Tdap) vaccination declined 03/12/2020 Anemia affecting in third trimester Rh negative state in antepar christine period, unspecified trimester 12/06/2019 Overview (12/30/2020): Rhogam given 03/12/20 , supervision, high-risk 11/30/2019 Overview (12/30/2020): declined flu vaccine Rubella non-immune status, antepartum 11/21/2019 Previous section 11/15/2019 Overview (12/30/2020): Wants repeat LTCS 05/14/2020 @ 0730 35 weeks gestation of 34 weeks gestation of Encounters Date Type Department Care Team Description 11/27/2024 External Device Data [facility] ABSTRACTION Provider, Abstract 11/27/2024 External Device Data [facility] ABSTRACTION Provider, Abstract 11/27/2024 External Device Data [facility] ABSTRACTION Provider, Abstract 11/20/2024 External Device Data [facility] ABSTRACTION Provider, Abstract 10/30/2024 External Device Data [facility] ABSTRACTION Provider, Abstract 10/30/2024 External Device Data [facility] ABSTRACTION Provider, Abstract 10/16/2024 External Device Data [facility] ABSTRACTION Provider, Abstract 10/16/2024 External Device Data [facility] ABSTRACTION Provider, Abstract 10/09/2024 External Device Data [facility] ABSTRACTION Provider, Abstract from Last 3 Months Family History Medical History Relation Name Comments Breast Cancer Neg Hx Ovarian Cancer Neg Hx Relation Name Status Comments Father Alive Mother Alive Social History Tobacco Use Types Packs/Day Years Used Date Smoking Tobacco: Former Cigarettes Q uit: 12/06/2018 Smokeless Tobacco: Never Tobacco Cessation:Counseling Given: Not Answered Alcohol Use Standard Drinks/Week Comments Yes 0 (1 standard drink = 0.6 oz pur e alcohol) occasional Feeling Safe Answer Date Recorded Within the last year, have y ou been afraid of your partner or ex-partner? Patient declined 03/10/2020 Within the last year, have y ou been humiliated or emotionally abused in other ways by your partner or ex-partner? Patient declined 03/10/2020 Within the last year, have y ou been kicked, hit, slapped, or otherwise physically hurt by your partner or ex-partner? Patient declined 03/10/2020 Within the last year, have y ou been raped or forced to have any kind of sexual activity by your partner or ex-partner? Patient declined 03/10/2020 Social Connections Answer Date Recorded In a typical week, how many times do you talk on the phone with family, friends, or neighbors? Patient declined 03/10/2020 How often do you get togethe r with friends or relatives? Patient declined 03/10/2020 How often do you attend holiness or druze serv ices? Patient declined 03/10/2020 Do you belong to any clubs o r organizations such as holiness groups, unions, fraternal or athletic groups, or school groups? Patient declined 03/10/2020 How often do you attend meet ings of the clubs or organizations you belong to? Patient declined 03/10/2020 Are you , , di vorced, , never , or living with a partner? Patient declined 03/10/2020 Financial Resource Strain Answer Date R ecorded How hard is it for you to pa y for the very basics like food, housing, medical care, and heating? Patient declined 03/10/2020 Food Insecurity Answer Date Recorded Within the past 12 months, y ou worried that your food would run out before you got the money to buy more. Patient declined Within the past 12 months, t he food you bought just didn't last and you didn't have money to get more. Patient declined Transportation Needs Answer Date Record ed In the past 12 months, has l ack of transportation kept you from medical appointments or from getting medications? Patient declined 03/10/2020 In the past 12 months, has l ack of transportation kept you from meetings, work, or from getting things needed for daily living? Patient declined 03/10/2020 Feeling Safe Answer Date Recorded Are you in a relationship wi th someone who hurts you emotionally and/or physically? No 06/13/2024 Comments No Sex and Gender Information Value Date Recorded Sex Assigned at Not on file Legal Sex Female 8:36 PM SOLE CUTTER Gender Identity Not on file Sexual Orientation Not on file Last Filed Vital Signs Vital Sign Reading Time Taken Comments Blood Pressure 95/59 06/13/2024 5:45 PM SOLE CUTTER Pulse 112 06/13/2024 5:45 PM SOLE CUTTER Temperature 36.7 C (98.1 F) 06/13/2024 5:45 PM SOLE CUTTER Respiratory Rate 19 06/13/2024 5:45 PM SOLE CUTTER Oxygen Saturation 98% 06/13/2024 5:45 PM SOLE CUTTER Inhaled Oxygen Concentration - - Weight 66.1 kg (145 lb 12.8 oz) 06/13/2024 3:02 PM SOLE CUTTER Height 154.9 cm (5' 1 ) 06/13/2024 3:02 PM SOLE CUTTER Body Mass Index 27.55 06/13/2024 3:02 PM SOLE CUTTER Plan of Treatment Health Maintenance Due Date Last Done Comments DTAP/TDAP/TD VACCINES (1 - Tdap) 2010 HEPATITIS B VACCINES (1 of 3 - 19+ 3-dose series) 2010 HPV/Cotest (21-29) 2012 HPV/Cotest (30-65) 2021 CERVICAL CANCER SCREENING 11/14/2022 PAP SMEAR 11/14/2022 11/15/2019, 11/15/2019 INFLUENZA VACCINE (#1) 2025 0, 03/27/2020 HPV VACCINES Aged Out No longer eligi ble based on patient's age to complete this topic Medical Devices Implanted Type Area Chief [employer] Device Identifier Shelf Expiration Date Model / Serial / Lot Animal Services Officer Ligamax Endo Multi Clip 5mm El5ml - [id number] Implanted: by Karen Sapp MD (Quantity not on file) Clip N/A: Abdomen [employer]- [employer] [id number] 05/26/2024 [id number] / / [id number] Procedures Procedure Name Priority Date/Time Associated Diagnosis Comments CERV/VAG CYTO AGE BASED SCREEN PAP W CT/NG Routine 11/15/2019 4:47 PM CDT from Last 3 Months or Most Recently Relevant to Health Maintenance Results * CERV/VAG CYTO AGE BASED SCREEN PAP W CT/NG (11/15/2019 4:47 PM CDT) COMMENT (PAP): SEE COMMENT 0 1:51 PM CDT [facility] Comment: This order for age-based cervical cancer and STI screening follows ACOG guidelines(PB 168, 140, LPR595). See individual assays for performing site location. CLINICAL INFORMATION Information not provided 11/23/2019 1:51 PM CDT [facility] LAST MENSTRUAL PERIOD INFORMATION NOT PROVIDED 11/23/2019 1:51 PM CDT [facility] PREV PAP: INFORMATION NOT PROVIDED 11/23/2019 1:51 PM CDT [facility] PREV BX: INFORMATION NOT PROVIDED 11/23/2019 1:51 PM CDT [facility] SOURCE Endocervix 11/23/2019 1:51 PM CDT [facility] ADEQUACY: SEE COMMENT 11/23/2019 1:51 PM CDT [facility] Comment: Satisfactory for evaluation. Endocervical/transformation zone component present. Age and/or menstrual status not provided PAP INTERP Negative for intraepithelial lesion or malignancy. 11/23/2019 1:51 PM CDT [facility] COMMENT This Pap test has been evaluated with computer assisted technology. 11/23/2019 1:51 PM CDT [facility] EARTH SCIENCE PROFESSOR: SEE COMMENT 2019 1:51 PM CDT [facility] Comment: YQ, CT(ASCP) CT screening location: [place] [address] [place] [address] EXPLANATORY NOTE SEE COMMENT 020 1:51 PM CDT [facility] Comment: EXPLANATORY NOTE: The Pap is a screening test for cervical cancer. It is not a diagnostic test and is subject to false negative and false positive results. It is most reliable when a satisfactory sample, regularly obtained, is submitted with relevant clinical findings and history, and when the Pap result is evaluated along with historic and current clinical information. Genital SWAB OF ENDOCERVIX / Unknown Collection / Unknown 11/15/2019 4:47 PM CDT 11/21/2019 10:10 AM CDT Narrative [facility] - 11/23/2019 1:51 PM CDT Performing Organization Information: Site ID: [id number] Name: [facility] Address: [address] [address] Director: Con Leonardo D.O., MPH Site ID: [id number] Name: [facility] Address: [address] [place] [address] Director: Callum Harris us Yue Stallworth MD PATHOLOGY/CYTOLOGY ORDERAB LES Final Result [facility] [phone] [facility] from Last 3 Months or Most Recently Relevant to Health Maintenance Insurance * Guarantor: THOMAS MAYBERRY Account Type Relation to Patient Date of Phone Billing Address Personal/Family [id number] [place] [address] RX [employer]OSSING Medicaid
--- OUTSIDE RECORDS SUMMARY | 2025-01-02 02:20 | XMS_ITS | Clinical Summary ---
Author Organization [facility] Address [address] [place] [address] Phone Care Team Providers Care Linux System Administrator Name Role Phone Unavailable Primary Care Provider Unavailabl e Allergies No known active allergies Medications Blood-Glucose Meter KitIndications:G estational diabetes mellitus, class A1,31 weeks gestation of Test blood sugars 4 times daily 1 Each 0 Active lancets 30 gaugeIndications :Gestational diabetes mellitus, class A1,31 weeks gestation of Check blood sugar 4 times daily 120 Each 5 0 Active blood sugar diagnostic StripIndications :Gestational diabetes mellitus, class A1,31 weeks gestation of Test blood sugar fasting and after each meal. 120 Strip 0 Active Insulin Syringe-Needle U-100 0.5 mL 31 gauge x 5/16 SyringeIndicatio ns:Insulin controlled gestational diabetes mellitus (GDM) in third trimester Use with insulin up to 4 times daily. 120 Each 0 Active insulin lispro (HumaLOG U-100 Insulin) 100 unit/mL vialIndications: Insulin controlled gestational diabetes mellitus (GDM) in third trimester Inject 6 units before breakfast 10 mL 0 Active insulin NPH human (NovoLIN N NPH U-100 Insulin) 100 unit/mL vialIndications: Insulin controlled gestational diabetes mellitus (GDM) in third trimester Inject 6 units at bedtime. 10 mL 0 Active calcium as carbonate (TUMS) 500 mg (200 mg elemental) Tablet, Chewable Take by mouth. Active acetaminophen (TYLENOL) 500 mg tablet Take 2 Tablets (1,000 mg) by mouth every 8 hours as needed for Temperature (temp equal to or greater than 100.4). 0 Active ondansetron (ZOFRAN ODT) 4 mg Tablet, Rapid Dissolve Take 1 Tablet (4 mg) by mouth every 6 hours as needed for nausea. 20 Tablet 1 04/08/2020 9:04 PM CDT 0 Active albuterol HFA 90 mcg inhaler Take 2 Puffs by inhalation every 6 hours. 8.5 Gram 1 04/18/2020 7:09 PM CDT 0 Active Active Problems Problem Noted Date Diagnosed Date EDGARDO (acute kidney injury) 04/16/2020 Acute bronchitis [...] antepar christine period, unspecified trimester 12/06/2019 Overview (03/12/2020): Rhogam given 03/12/20 , supervision, high-risk 11/30/2019 Overview (03/26/2020): declined flu vaccine Rubella non-immune status, antepartum 11/21/2019 Previous section 11/15/2019 Overview (11/15/2019): Wants repeat LTCS 05/14/2020 @ 0730 35 weeks gestation of 34 weeks gestation of Resolved Problems Problem Noted Date Diagnosed Date Resolved Date Gestational diabetes mellitus, class A1 03/19/2020 03/26/2020 Cholelithiasis affecting pre gnancy, antepartum 11/21/2019 01/03/2020 Abdominal pain, acute, right upper quadrant 01/03/2020 Family History Medical History Relation Name Comments Breast Cancer Neg Hx Ovarian Cancer Neg Hx Relation Name Status Comments Father Alive Mother Alive Social History Tobacco Use Types Packs/Day Years Used Date Smoking Tobacco: Former Cigarettes 1 10 0 12/06/2008 - 12/06/2018 Smokeless Tobacco: Never Alcohol Use Standard Drinks/Week Comments Not Currently 0 (1 standard drink = 0.6 oz pur e alcohol) Feeling Safe Answer Date Recorded Within the [...] declined 03/10/2020 How often do you attend mormonism or lutheran serv ices? Patient declined 03/10/2020 Do you belong to any clubs o r organizations such as mormonism groups, unions, fraternal or athletic groups, or [...] needed for daily living? Patient declined 03/10/2020 Comments No Sex and Gender Information Value Date Recorded Sex Assigned at Not on file Legal Sex Female 2:07 PM CDT Gender Identity Not on file Sexual Orientation Not on file Last Filed Vital Signs Vital Sign Reading Time Taken Comments Blood Pressure 122/72 04/23/2020 11:20 PM CDT Pulse 98 04/17/2020 12:00 AM CDT Temperature 37.1 C (98.8 F) 04/23/2020 11:20 PM CDT Respiratory Rate 18 04/23/2020 11:20 PM CDT Oxygen Saturation 98% 04/23/2020 11:20 PM CDT Inhaled Oxygen Concentration - - Weight 73.2 kg (161 lb 6.4 oz) 04/23/2020 6:10 P M CDT Height 157.5 cm (5' 2 ) 04/23/2020 12:36 PM CDT Body Mass Index 29.52 04/23/2020 12:36 PM CDT Plan of Treatment Health Maintenance Due Date Last Done Comments DTAP/TDAP/TD VACCINES (1 - Tdap) 2010 HEPATITIS B VACCINES (1 of 3 - 19+ 3-dose series) 2010 HPV/Cotest (21-29) 2012 HPV/Cotest (30-65) 2021 CERVICAL CANCER SCREENING 11/14/2022 PAP SMEAR 11/14/2022 11/15/2019 INFLUENZA VACCINE (#1) 2025 0, 03/27/2020 HPV VACCINES Aged Out No longer eligi ble based on patient's age to complete this topic Medical Devices Implanted Type 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 Device Identifier Shelf Expiration Date Model / Serial / Lot Method Consultant Ligamax Endo Multi Clip 5mm El5ml - [id number] Implanted:11/21 by Karen Sapp MD at [facility] (Quantity not on file) Clip N/A: Abdomen [employer] [id number] 05/26/2024 EL5ML / / [id number] Procedures Procedure Name Priority Date/Time Associated Diagnosis Comments CERV/VAG CYTO AGE BASED SCREEN PAP W CT/NG Routine 11/15/2019 4:47 PM CDT Screening for cervical cancer Screening for STD (sexually transmitted disease) from Last 3 Months or Most Recently Relevant to Health Maintenance Results * CERV/VAG CYTO AGE BASED SCREEN PAP W CT/NG (11/15/2019 4:47 PM CDT) COMMENT (PAP): SEE COMMENT 0 1:51 PM CDT [facility] Comment: This order for age-based cervical cancer and STI screening follows ACOG guidelines(PB 168, 140, FAR777). See individual assays for performing site location. CLINICAL INFORMATION Information not provided 11/23/2019 1:51 PM CDT [facility] LAST MENSTRUAL PERIOD INFORMATION NOT PROVIDED 11/23/2019 1:51 PM CDT [facility] PREV PAP: INFORMATION NOT PROVIDED 11/23/2019 1:51 PM CDT [facility] PREV BX: INFORMATION NOT PROVIDED 11/23/2019 1:51 PM CDT [facility] SOURCE Endocervix 11/23/2019 1:51 PM CDT [facility] ADEQUACY: SEE COMMENT 11/23/2019 1:51 PM CDT [facility] Comment: Satisfactory for evaluation. Endocervical/transformation zone component present. Age and/or menstrual status not provided PAP INTERP Negative for intraepithelial lesion or malignancy. 11/23/2019 1:51 PM CDT [facility] COMMENT This Pap test has been evaluated with computer assisted technology. 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 [address] EXPLANATORY NOTE SEE COMMENT 020 1:51 PM CDT [facility] Comment: EXPLANATORY NOTE: The Pap is a [...] Collection / Unknown 11/15/2019 4:47 PM CDT 11/20/2019 12:47 PM CDT Narrative [facility] - 11/23/2019 1:51 PM CDT Performing Organization Information: Site ID: [id number] Name: [facility] Address: [address] [address] Director: Con Leonardo D.O., MPH Site ID: [place] Name[facility] Address: [address] [place] [address] Director: Callum Harris Yue Stallworth MD PATHOLOGY/CYTOLOGY ORDERAB LES Final Result [facility] [phone] from Last 3 Months or Most Recently Relevant to Health Maintenance Insurance [facility] [id number] [facility] PPO RX INFOCROSSING Medicaid Advance Directives For more information, please contact: [phone] * Full Code (Latest Code Status on File) Date Activated Date Inactivated Comments 04/23/2020 5:48 PM 04/24/2020 4:34 AM * Full Code Date Activated Date Inactivated Comments 04/14/2020 12:43 AM 04/18/2020 11:04 PM * Full Code Date Activated Date Inactivated Comments 04/04/2020 10:29 PM 04/05/2020 11:09 PM * Full Code Date Activated Date Inactivated Comments 11/22/2019 2:18 PM 11/23/2019 6:57 PM * Full Code Date Activated Date Inactivated Comments 11/21/2019 8:38 PM 11/22/2019 2:18 PM
--- OUTSIDE RECORDS SUMMARY | 2025-01-02 02:20 | XMS_ITS | Encounter Summary ---
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 [address] Yue Stallworth MD [address] [facility], [facility] [address] [place] [address] Vomiting Social History Tobacco Use Types Packs/Day Years [...] declined 03/10/2020 How often do you attend christianity or congregation serv ices? Patient declined 03/10/2020 Do you belong to any clubs o r organizations such as christianity groups, unions, fraternal or athletic groups, or [...] for daily living? Patient declined 03/10/2020 Comments Yes Sex and Gender Information Value Date Recorded Sex Assigned at Not on file Legal Sex Female 2:07 PM CDT Gender Identity Not on file Sexual Orientation Not on file COVID-19 Exposure Response Date Recorded In the last month, have you been in contact with someone who was confirmed or suspected to have Coronavirus / COVID-19? No / Unsure 04/14/2020 1:07 AM CDT documented as of this encounter Miscellaneous Notes * Telephone Encounter - Beatrice Tomlinson RN - 04/13/2020 6:48 PM CDT Triage Nurse Call 04/13/2020 6:49 PM Shana Mayberry Current Physician: Dr. Federica Stallworth Estimated Date of Delivery: 05/21/20 Gestational Age: 34w4d Reason for Call: pts boyfriend called, pt unable to speak, in bathroom audibly vomiting, pt is covid +, cannot stop vomiting, cannot keep water or ice chips down, puking up nausea meds we gave her 4ish days ago Normal movement: yes,per BF Contractions Present: no, per BF Leaking Present: no per BF Vaginal Bleeding: unknown [place]: N/A Last Vaginal Exam: na Complications with : COVID + Relevant Medical History: Active Problems: * No active hospital problems. * Patient Active Problem List Diagnosis Code ??? 33 weeks gestation of Z3A.33 ??? Previous section Z98.891 ??? Rubella non-immune status, antepartum O99.891, Z28.3 ??? , supervision, high-risk O09.90 ??? Rh negative state in antepartum period, unspecified trimester O26.899, Z67.91 ??? Tetanus, diphtheria, and acellular pertussis (Tdap) vaccination declined Z28.21 ??? Anemia affecting in third trimester O99.013 ??? Insulin controlled gestational diabetes mellitus (GDM) in third trimester O24.414 ??? Influenza vaccine refused Z28.21 ??? COVID-19 virus detected U07.1 ??? Nausea and vomiting R11.2 ??? Dyspnea R06.00 ??? Lab test positive for detection of COVID-19 virus U07.1 ??? Decreased movements in third trimester O36.8130 Past Medical History: Diagnosis Date ??? Gestational diabetes ??? Gestational diabetes mellitus, class A1 03/19/2020 ??? Patient denies relevant medical history Beatrice Tomlinson RN If screen is POSITIVE add .COVIDOBTRIAGESYMPTOMSCREEN Advice Given: come in for evaluation, pts BF states they are on their way here documented in this encounter Plan of Treatment Not on file documented as of this encounter Visit Diagnoses Not on filedocumented in this encounter Additional Health Concerns Infection Onset Date Last Indicated Resolved Time COVID-19 Comment:Meets criteria for resolution of isolation. 04/04/2020 04/04/2020 04/14/2020 9:06 AM CDT COVID-19 Comment:Pt is symptomatic. 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
--- OUTSIDE RECORDS SUMMARY | 2025-01-02 02:20 | XMS_ITS | Encounter Summary ---
Author Organization [facility] Address [address] [place] [address] Care Team Providers Care Health Care Recruiter Name Role Phone Unavailable Primary Care Provider Unavailabl e Encounter Details Date Type Department Care Team (Late st Contact Info) Description 03/18/2020 Ancillary Orders [facility] [place] [address] [facility] [address] [place] [address] Tom Stallworth MD [address] [facility], [facility] [address] [place] [address] Gestational diabetes mellitus (GDM) in third trimester, gestational diabetes method of control unspecified; High-risk in third trimester; Insulin controlled gestational diabetes mellitus (GDM) in third trimester Social History Tobacco Use Types Packs/Day Years [...] declined 03/10/2020 How often do you attend temple or cheondoism serv ices? Patient declined 03/10/2020 Do you belong to any clubs o r organizations such as temple groups, unions, fraternal or athletic groups, or [...] have Coronavirus / COVID-19? No / Unsure 03/19/2020 7:32 AM CDT documented as of this encounter Plan of Treatment Not on file documented as of this encounter Results * US OB LTD 1 OR MORE FETUSES (03/26/2020 12:48 PM CDT) Anatomical Region Laterality Modality Pelvis Ultrasound 03/26/2020 12:2 7 PM CDT Impressions 03/26/2020 1:21 PM CDT IMPRESSION Findings Comment Reassuring modified biophysical profile Narrative 03/26/2020 1:21 PM CDT [facility] Pat. Name: THOMAS MAYBERRY Study Date: 03/26/2020 12:27pm Pat. NO: [id number] Referring MD: TOM STALLWORTH Site: [facility] Residential Installer: Lora Kaufman : 1990 Age: 29 INDICATION High Risk Third Trimester Diabetes - Gestational (Diet) CODING Diagnosis O09.03: High Risk O24.410: Gestational diabetes mellitus in , diet controlled Z3A.32: Weeks Gestation of Procedures 61653: Limited OB Ultrasound 67787: NST/ monitoring HISTORY OB History 3. Para 1 METHOD EFM. Transabdominal ultrasound examination. View: Adequate visualization Flores . Number of fetuses: 1. DATING Cycle: regular cycle Method of dating: Restore dating from previous exam Assigned: Dating performed on 03/19/2020, based on the LMP Assigned GA 32 w + 0 d Assigned BRIDGET: 05/21/2020 GENERAL EVALUATION Cardiac activity present. FHR 140 bpm. Presentation cephalic. NON STRESS TEST NST interpretation: reactive, Variability: moderate. Baseline FHR 130 bpm. Accelerations: Present. Decelerations: Not present AMNIOTIC FLUID ASSESSMENT MVP 4.9 cm. MATHIEU 10.3 cm. Q1 4.9 cm, Q2 2.6 cm, Q3 2.7 cm, Q4 0.0 cm Procedure Note Enzo LUNA, Reji Ramos MD - 03/26/2020 [facility] Pat. Name:Tita MAYBERRYjose luislondon Date:03/26/2020 12:27pm Pat. NO: [id number] :TOM STALLWORTH [facility]auf[facility] :1990Age:29 INDICATION High Risk Third Trimester Diabetes - Gestational (Diet) CODING Diagnosis O09.03: High Risk O24.410: Gestational diabetes mellitus in , diet controlled Z3A.32: Weeks Gestation of Procedures 98247: Limited OB Ultrasound 45436: NST/ monitoring HISTORY OB History 3. Para 1 METHOD EFM. Transabdominal ultrasound examination. View: Adequate visualization Flores . Number of fetuses: 1. DATING Cycle:regular cycle Method of dating:Restore dating from previous exam Assigned:Dating performed on 03/19/2020, based on the LMP Assigned GA32 w + 0 d Assigned BRIDGET:05/21/2020 GENERAL EVALUATION Cardiac activity present. FHR 140 bpm. Presentation cephalic. NON STRESS TEST NST interpretation: reactive, Variability: moderate. Baseline FHR 130 bpm. Accelerations: Present. Decelerations: Not present AMNIOTIC FLUID ASSESSMENT MVP 4.9 cm. MATHIEU 10.3 cm. Q1 4.9 cm, Q2 2.6 cm, Q3 2.7 cm, Q4 0.0 cm IMPRESSION Findings Comment Reassuring modified biophysical profile us Tom Stallworth MD US ORDERABLES Final Resu lt * US OB FOLLOW UP PER FETUS (03/19/2020 11:19 AM CDT) Anatomical Region Laterality Modality Pelvis Ultrasound 03/19/2020 8:16 AM CDT Impressions 03/19/2020 11:19 AM CDT IMPRESSION Findings Comment Estimated weight is appropriate for gestational age Narrative 03/19/2020 11:19 AM CDT [facility] Pat. Name: THOMAS MAYBERRY Study Date: 03/19/2020 8:16am Pat. NO: [id number] Referring MD: TOM STALLWORTH Site: [facility] Residential Installer: Seema Harvey : 1990 Age: 29 INDICATION Diabetes - Gestational (unspecified) Gestational diabetes mellitus (GDM) in third trimester, gestational diabetes method of control unspecified [O24.419 (ICD-10-CM)]; High-risk in third trimester [O09.93 (ICD-10-CM)] CODING Diagnosis O24.419: Gestational diabetes mellitus in , unspecified control Z3A.31: Weeks Gestation of Procedures 38245: OB US Follow-up HISTORY OB History 3. Para 1 METHOD Transabdominal ultrasound examination Flores . Number of fetuses: 1. DATING Method of dating: based on the LMP LMP on: 08/15/2019 Cycle: regular cycle GA by LMP 31 w + 0 d BRIDGET by LMP: 05/21/2020 Ultrasound examination on: 03/19/2020 GA by U/S based upon: AC, BPD, EFW, Femur, HC GA by U/S 31 w + 0 d BRIDGET by U/S: 05/21/2020 Assigned: Dating performed on 03/19/2020, based on the LMP Assigned GA 31 w + 0 d Assigned BRIDGET: 05/21/2020 BIOMETRY Main Biometry: BPD 79.4 mm 31w 6d 66% Hadlock OFD 100.9 mm 32w 4d 88% Omaira HC 289.0 mm 31w 6d 35% Hadlock AC 253.8 mm 29w 4d 11% Hadlock Femur 60.3 mm 31w 3d 46% Hadlock HC / AC 1.14 86% Nicolaides Weight Calculation: EFW 1,592 g 30w 1d 25% Hadlock EFW (lb,oz) 3 lb 8 oz EFW by Hadlock ([id number]) Head / Face / Neck Biometry: Cephalic index 0.79 41% Nicolaides Extremities / Bony Struc Biometry: FL / BPD 0.76 FL / HC 0.21 FL / AC 0.24 Other Structures Biometry: AF MVP 5.9 cm MATHIEU 16.1 cm 62% Coles FHR 142 bpm GENERAL EVALUATION Cardiac activity present. FHR 142 bpm. Presentation breech. Placenta posterior, fundal. Amniotic fluid MVP 5.9 cm. MATHIEU 16.1 cm. Q1 3.2 cm, Q2 3.6 cm, Q3 5.9 cm, Q4 3.5 cm. ANATOMY 4-chamber view: previously seen. The following structures appear normal: Stomach: Fluid filled stomach identified. Kidneys: Kidneys appear normal bilaterally. Bladder: Fluid filled bladder identified. Procedure Note Reji Giraldo II, MD - 03/19/2020 [facility] Pat. Name:Edy MAYBERRY Date:03/19/2020 8:16am Pat. NO: [id number] :TOM STALLWORTH [facility] :1990Age:29 INDICATION Diabetes - Gestational (unspecified) Gestational diabetes mellitus (GDM) in third trimester, gestational diabetes method of control unspecified [O24.419 (ICD-10-CM)]; High-risk in third trimester [O09.93 (ICD-10-CM)] CODING Diagnosis O24.419: Gestational diabetes mellitus in , unspecified control Z3A.31: Weeks Gestation of Procedures 43551: OB US Follow-up HISTORY OB History 3. Para 1 METHOD Transabdominal ultrasound examination Floers . Number of fetuses: 1. DATING Method of dating:based on the LMP LMP on:08/15/2019 Cycle:regular cycle GA by LMP31 w + 0 d BRIDGET by LMP:05/21/2020 Ultrasound examination on:03/19/2020 GA by U/S based upon:AC, BPD, EFW, Femur, HC GA by U/S31 w + 0 d BRIDGET by U/S:05/21/2020 Assigned:Dating performed on 03/19/2020, based on the LMP Assigned GA31 w + 0 d Assigned BRIDGET:05/21/2020 BIOMETRY Main Biometry: BPD 79.4 mm 31w 6d66% Hadlock OFD 100.9 mm 32w 4d88% Omaira HC 289.0 mm 31w 6d35% Hadlock AC 253.8 mm 29w 4d11% Hadlock Femur 60.3 mm 31w 3d46% Hadlock HC / AC 1.1486% Nicolaides Weight Calculation: EFW 1,592 g 30w 1d25% Hadlock EFW (lb,oz) 3 lb 8 oz EFW by Hadlock ([id number]) Head / Face / Neck Biometry: Cephalic index 0.7941% Nicolaides Extremities / Bony Struc Biometry: FL / BPD 0.76 FL / HC 0.21 FL / AC 0.24 Other Structures Biometry: AF MVP 5.9 cm MATHIEU 16.1 cm62% Coles FHR 142 bpm GENERAL EVALUATION Cardiac activity present. FHR 142 bpm. Presentation breech. Placenta posterior, fundal. Amniotic fluid MVP 5.9 cm. MATHIEU 16.1 cm. Q1 3.2 cm, Q2 3.6 cm, Q3 5.9 cm,Q4 3.5 cm. ANATOMY 4-chamber view: previously seen. The following structures appear normal: Stomach: Fluid filled stomach identified. Kidneys: Kidneys appear normal bilaterally. Bladder: Fluid filled bladder identified. IMPRESSION Findings Comment Estimated weight is appropriate for gestational age Tom Stallworth MD ORDERABLES Final Resu lt documented in this encounter Visit Diagnoses Diagnosis Gestational diabetes mellitus (GDM) in third trimester, gestational diabetes method of control unspecified High-risk in third trimester Gestational diabetes mellitus (GDM) in third trimester, gestational diabetes method of control unspecified High-risk in third trimester documented in this encounter Additional Health Concerns Infection Onset Date Last Indicated Resolved Time R/O COVID-19 04/04/2020 04/04/2020 04/05/2020 1:09 AM CDT COVID-19 Comment:Meets criteria for resolution of isolation. 04/04/2020 04/04/2020 04/14/2020 9:06 AM CDT COVID-19 Comment:Pt is symptomatic. 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
--- OUTSIDE RECORDS SUMMARY | 2025-01-02 02:20 | XMS_ITS | Encounter Summary ---
Author Organization [facility] Address [address] [place] [address] Care Team Providers Care General Office Dispatcher Name Role Phone Unavailable Primary Care Provider Unavailabl e Encounter Details Date Type Department Care Team (Late st Contact Info) Description 03/25/2020 Ancillary Orders [facility] OBGYN [place] [address] [facility] [address] [place] [address] Tom Stallworth MD [address] [facility] [address] [place] [address] Insulin controlled gestational diabetes mellitus (GDM) in third trimester; High-risk in third trimester Social History Tobacco Use [...] declined 03/10/2020 How often do you attend orthodox or mandaen serv ices? Patient declined 03/10/2020 Do you belong to any clubs o r organizations such as orthodox groups, unions, fraternal or athletic groups, or [...] have Coronavirus / COVID-19? No / Unsure 03/26/2020 9:39 AM CDT documented as of this encounter Plan of Treatment Not on file documented as of this encounter Results * US OB LTD 1 OR MORE FETUSES (04/02/2020 1:17 PM CDT) Anatomical Region Laterality Modality Pelvis Ultrasound 04/02/2020 10:5 4 AM CDT Impressions 04/02/2020 4:29 PM CDT IMPRESSION Findings Comment Reassuring modified biophysical profile Narrative 04/02/2020 4:29 PM CDT [facility] Pat. Name: THOMAS MAYBERRY Study Date: 04/02/2020 10:54am Pat. NO: [id number] Referring MD: TOM STALLWORTH Site: [facility] Wafer Fabrication Operator: Seema Harvey : 1990 Age: 29 INDICATION Diabetes - Gestational (insulin) Insulin controlled gestational diabetes mellitus (GDM) in third trimester [O24.414 (ICD-10-CM)]; High-risk in third trimester [O09.93 (ICD-10-CM)] CODING Diagnosis Z3A.33: Weeks Gestation of O24.414: Gestational diabetes mellitus in , insulin controlled Procedures 29716: Limited OB Ultrasound 94815: NST/ monitoring HISTORY OB History 3. Para 1 METHOD EFM. Transabdominal ultrasound examination. View: Adequate visualization Flores . Number of fetuses: 1. DATING Cycle: regular cycle Method of dating: Restore dating from previous exam Assigned: Dating performed on 03/19/2020, based on the LMP Assigned GA 33 w + 0 d Assigned BRIDGET: 05/21/2020 GENERAL EVALUATION Cardiac activity present. FHR 136 bpm. Presentation cephalic. NON STRESS TEST NST interpretation: reactive, Variability: moderate. Baseline FHR 130 bpm. Accelerations: Present. Decelerations: Not present AMNIOTIC FLUID ASSESSMENT MVP 5.9 cm. MATHIEU 17.1 cm. Q1 5.9 cm, Q2 3.1 cm, Q3 4.8 cm, Q4 3.3 cm Procedure Note Reji Giraldo II, MD - 04/02/2020 [facility] Pat. Name:THOMAS MAYBERRYJolanta Date:04/02/2020 10:54am Pat. NO: [id number] :TOM STALLWORTH [facility] :1990Age:29 INDICATION Diabetes - Gestational (insulin) Insulin controlled gestational diabetes mellitus (GDM) in third trimester [O24.414(ICD-10-CM)]; High-risk in third trimester [O09.93 (ICD-10-CM)] CODING Diagnosis Z3A.33: Weeks Gestation of O24.414: Gestational diabetes mellitus in , insulin controlled Procedures 40890: Limited OB Ultrasound 69790: NST/ monitoring HISTORY OB History 3. Para 1 METHOD EFM. Transabdominal ultrasound examination. View: Adequate visualization Flores . Number of fetuses: 1. DATING Cycle:regular cycle Method of dating:Restore dating from previous exam Assigned:Dating performed on 03/19/2020, based on the LMP Assigned GA33 w + 0 d Assigned BRIDGET:05/21/2020 GENERAL EVALUATION Cardiac activity present. FHR 136 bpm. Presentation cephalic. NON STRESS TEST NST interpretation: reactive, Variability: moderate. Baseline FHR 130 bpm. Accelerations: Present. Decelerations: Not present AMNIOTIC FLUID ASSESSMENT MVP 5.9 cm. MATHIEU 17.1 cm. Q1 5.9 cm, Q2 3.1 cm, Q3 4.8 cm, Q4 3.3 cm IMPRESSION Findings Comment Reassuring modified biophysical profile us Tom Stallworth MD US ORDERABLES Final Resu lt documented in this encounter Visit Diagnoses Diagnosis Insulin controlled gestational diabetes mellitus (GDM) in third trimester High-risk in third trimester Insulin controlled gestational diabetes mellitus (GDM) in third trimester High-risk in third trimester documented in this encounter Additional Health Concerns Infection Onset Date Last Indicated Resolved Time R/O COVID-19 04/04/2020 04/04/2020 04/05/2020 1:09 AM CDT COVID-19 Comment:Meets criteria for resolution of isolation. 04/04/2020 04/04/2020 04/14/2020 9:06 AM CDT COVID-19 Comment:Pt is symptomatic. 04/04/2020 04/14/2020 05/04/2020 8: 09 PM MUD CLEANER OPERATOR documented as of this encounter
[2025-01-02 02:40] VITALS: BP 108/65; PULSE 103; RESP 17; TEMP 38.6; O2SAT 97; BMI 28.3
--- NOTE | 2025-01-02 02:50 | ED_ITS ---
HPI - Headache 2 General: Chief Complaint: Headache Stated Complaint: Migran Dizzy fever Time Seen by Provider: 01/02/25 02:46 History of Present Illness: Patient comes in the emergency department with a migraine headache. States that it started earlier yesterday. States it started mild and gradually got worse. States this is a typical migraine for her. States she has had a mild fever today as well. Denies any cough, congestion, diarrhea or abdominal pain. Denies any chest pain or shortness of breath. Denies any neck stiffness. On physical exam her neck is supple, nontender. Will check labs, give IV fluids, treat her migraine with 50 mg of IV Toradol, 10 mg of IV Compazine, IV fluids, 50 mg of IV Benadryl, and reassess. Associated symptoms: Deny chest pain Related Data Previous Rx's ?Medication ?Instructions ?Recorded albuterol sulfate 90 mcg/actuation 2 puff inhalation Q 6H PRN 04/10/24 aerosol inhaler shortness of breath or wheez ing #8.5 grams naproxen 500 mg tablet (Naprosyn) 500 mg PO BID PRN pa in #20 tabs 07/26/24 Allergies Allergy/AdvReac Type Severity Reaction Status Date / Time metoclopramide (From Reglan) Allergy ADR-Anxiety Verified 06/25/24 09:36 Review of Systems 2 Const: Denies: body aches Eyes: Denies: change in vision or blurry vision ENMT: Denies: throat pain or odynophagia Card: Denies: chest pain or palpitations Resp: Denies: dyspnea or productive cough GI: Denies: abdominal pain : Denies: flank pain or dysuria Musc: Denies: neck pain PFSH ED 2 PFSH: Medical History (Updated 01/02/25 @ 04:36 by Norman Gongora MD) Cough Cerebrovascular accident Migraine headache Surgical History S/P section (04/27/20) RLTCS. Performed by Dr. Lopez at [facility] S/P laparoscopic cholecystectomy (~10/2019) Was at the time. S/P primary low transverse (08/03/14) Performed by Dr. Lopez at [facility] in [place], [place]. Confirmed LTCS with 2 layer closure. Family History Denies family history of Diabetes Anesthesia complication Bleeding disorder Hypertension Stroke Social History Smoking and tobacco/nicotine status: current every day tobacco/nicotine user (vapes daily) Quit status (tobacco/nicotine): has quit using Year quit tobacco: 04/2019 Former quit date comment: Was smoking 1 PPD until switched to vaping in 2017. Quit in 04/2019. Alcohol intake: never Substance/Drug Use: never Female Reproductive History: Para: 1 Spontaneous abortions: No Physical Exam 2 Const: COMMON NORMALS: no acute distress, patient oriented x3, healthy appearing and alert HENMT: COMMON NORMALS: normocephalic and atraumatic HEAD & SCALP: n ormocephalic and atraumatic Eye: COMMON NORMALS: Equal, round and reactive pupils present and EOMs intact bilaterally PUPIL: Yes Equal, round and reactive pupils present Neck/C-Spine: COMMON NORMALS: full ROM and supple Resp: COMMON NORMALS: normal respiratory effort, No retractions and No use of accessory muscles Cardio: COMMON NORMALS: regular rhythm RHYTHM: regular rhythm GI: COMMON NORMALS: Normal to inspection, nondistended, normoactive bowel sounds present, Soft to palpation and non-tender PALPATION: Yes Soft to palpation Extremity: COMMON NORMALS: normal to inspection and full ROM Neuro: COMMON NORMALS: patient oriented x3 SENSORIUM/ORIENTATION: Yes alert Psych: COMMON NORMALS: mental status grossly normal and cooperative Skin: COMMON NORMALS: no rashes or lesions noted and no wounds GENERAL SKIN EXAM: no rashes or lesions noted Course 2 Vital Signs: Vital signs: Vital Signs Temperature 101.4 F H 01/02/25 02:40 Pulse Rate 95 01/02/25 03:37 Respiratory Rate 16 01/02/25 03:37 Blood Pressure 97/58 01/02/25 03:37 Pulse Oximetry 98 01/02/25 03:37 Oxygen Delivery Me thod Room Air 01/02/25 03:37 MDM - Headache Medical Decision Making On reassessment I talked with the patient but her test results. White blood cell count was normal. Her chest x-ray shows no acute cardiopulmonary process. The patient is running a fever here, however she still denies cough, congestion, sore throat, neck stiffness, abdominal pain, diarrhea, dysuria. We discussed symptoms that should prompt immediate return to the emergency department. She states that her headache is gone at this time. Will discharge with precautions to return for worsening or changing symptoms. Lab Data 01/02/25 03:08 01/02/25 03:08 Laboratory Results WBC 6.56 10^3/uL (3.29-11.43) 01/02/25 03:08 RBC 4.14 10^6/uL (3.85-5.65) 01/02/25 03:08 Hgb 12.90 g/dL (11.27-16.99) 01/02/25 03:08 Hct 37.4 % (36-47) 01/02/25 03:08 MCV 90.3 fl (85-98) 01/02/25 03:08 MCH 31.2 pg (27-33) 01/02/25 03:08 MCHC 34.5 g/dL (30-55) 01/02/25 03:08 RDW 11.9 % (12.1-15.1) L 01/02/25 03:08 Plt Count 216 10^3/cmm (157-399) 01/02/25 03:08 MPV 10.5 fL (7.4-10.4) H 01/02/25 03:08 Neut % (Auto) 80.2 % 01/02/25 03:08 Lymph % (Auto) 14.0 % 01/02/25 03:08 [place] % (Auto) 5.3 % 01/02/25 03:08 Eos % (Auto) 0.0 % 01/02/25 03:08 Baso % (Auto) 0.2 % 01/02/25 03:08 Neut # (Auto) 5.26 10^3/uL (1.8-7.7) 01/02/25 03:08 Lymph # (Auto) 0.9 10^3/uL (0.8-4.8) 01/02/25 03:08 [place] # (Auto) 0.4 10^3/uL (0.2-0.9) 01/02/25 03:08 Eos # (Auto) 0.0 10^3/uL (0.0-0.8) 01/02/25 03:08 Baso # (Auto) 0.0 10^3/uL (0.0-0.1) 01/02/25 03:08 Nucleated RBC % (auto) 0 % 01/02/25 03:08 Nucleated RBCs # 0.0 /100WBC 01/02/25 03:08 Sodium 137 mmol/L (136-145) 01/02/25 03:08 Potassium 3.8 mmol/L (3.5-5.1) 01/02/25 03:08 Chloride 101 mmol/L (98-107) 01/02/25 03:08 Carbon Dioxide 23 mmol/L (22-29) 01/02/25 03:08 Anion Gap 16.8 (5-19) 01/02/25 03:08 BUN 7 mg/dL (6-20) 01/02/25 03:08 Creatinine 0.8 mg/dL (0.5-0.9) 01/02/25 03:08 GFR Calculation 82.6 mL/min (90-130) L 01/02/25 03:08 Glucose 110 mg/dL (65-115) 01/02/25 03:08 Calculated Osmolality 283 mOsm/kg (285-295) L 01/02/25 03:08 Lactic Acid 0.9 mmol/L (0.5-2.2) 01/02/25 03:08 Calcium 8.9 mg/dL (8.5-10.5) 01/02/25 03:08 Total Bilirubin 0.4 mg/dL (0.15-1.2) 01/02/25 03:08 AST 16 U/L (0-32) 01/02/25 03:08 ALT 11 U/L (0-33) 01/02/25 03:08 Alkaline Phosphatase 75 U/L (35-105) 01/02/25 03:08 Total Protein 7.0 g/dL (6.6-8.7) 01/02/25 03:08 Albumin 4.1 g/dL (3.5-5.2) 01/02/25 03:08 Globulin 2.9 g/dL (1.3-4.6) 01/02/25 03:08 Urine Color Yellow (Yellow) 01/02/25 03:40 Urine Appearance Clear (CLEAR) 01/02/25 03:40 Urine pH 6.0 (5-7) 01/02/25 03:40 Ur Specific [place] 1.025 (1.005-1.030) 01/02/25 03:40 Urine Protein Negative (Negative) 01/02/25 03:40 Urine Glucose (UA) Negative (Normal) 01/02/25 03:40 Urine Ketones Trace (Negative) 01/02/25 03:40 Urine Blood Trace (Negative) A 01/02/25 03:40 Urine Nitrate Negative (Negative) 01/02/25 03:40 Urine Bilirubin Negative (Negative) 01/02/25 03:40 Urine Urobilinogen 1.0 mg/dL (Negative) 01/02/25 03:40 Ur Leukocyte Esterase Negative (Negative) 01/02/25 03:40 Urine RBC 6-10 /hpf (0-2) 01/02/25 03:40 Urine WBC 0-5 /hpf (0-5) 01/02/25 03:40 Ur Squamous Epith Cells 0-5 /hpf (0-5) 01/02/25 03:40 Amorphous Sediment Not Reportable 01/02/25 03:40 Urine Bacteria None seen /hpf (NONE) 01/02/25 03:40 Hyaline Casts 0-4 /lpf H 01/02/25 03:40 Influenza A (PCR) Negative (Negative) 01/02/25 03:35 Influenza Type B (PCR) Negative (Negative) 01/02/25 03:35 RSV (PCR) Negative (Negative) 01/02/25 03:35 SARS-CoV-2 (PCR) Negative (Negative) 01/02/25 03:35 All radiology interpretation(s) finalized by discharge Discharge Plan Discharge Patient Disposition: Home Clinical Impression: Migraine Condition: Stable Prescriptions: No Action albuterol sulfate 90 mcg/actuation HFA aerosol inhaler 2 puff inhalation Q6H PRN (Reason: shortness of breath or wheezing) Qty: 8.5 0RF naproxen [Naprosyn] 500 mg tablet 500 mg PO BID PRN (Reason: pain) Qty: 20 0RF Discharge Orders: Discharge ED (Routine); Ordered 01/02/25 Ordered By: Norman Gongora Referrals: Steven Walker MD [Primary Care Provider, Family Practice] Patient Instructions: Migraine Headache (ED), Fever in Adults (ED), Patient Portal & [place] Instructions Print Language: Greenlandic Coding Level of Care Code ED Sliver Former for Molly Miles
--- NOTE | 2025-01-02 02:59 | XRR_ITS ---
PROCEDURE INFORMATION: Exam: XR Chest Exam date and time: 01/02/2025 3:31 AM Age: 34 years old Clinical indication: Fever TECHNIQUE: Imaging protocol: Radiologic exam of the chest. Views: 1 view. COMPARISON: CT angio chest PE protcl [id number] 07/26/2024 10:39 AM FINDINGS: Lungs: Unremarkable. No consolidation. Pleural spaces: Unremarkable. No pleural effusion. No pneumothorax. Heart/Mediastinum: Unremarkable. No cardiomegaly. Bones/joints: Unremarkable. XR/XR chest 1V portable [id number] IMPRESSION: No acute findings.
[2025-01-02] MEDS: diphenhydrAMINE 50 mg/mL SDV 1mL IVP (03:14)
[2025-01-02 03:20] LABS: Hematocrit 37.4 % (36-47); Hemoglobin 12.90 g/dL (11.27-16.99); Mean Corpuscular HGB Conc 34.5 g/dL (30-55); Mean Corpuscular Hemoglobin 31.2 pg (27-33); Mean Corpuscular Volume 90.3 fl (85-98); Nucleated Red Blood Cells % 0 %; Platelet Count 216 10^3/cmm (157-399); Red Blood Count 4.14 10^6/uL (3.85-5.65); White Blood Count 6.56 10^3/uL (3.29-11.43)
[2025-01-02 03:36] LABS: Lactic Sepsis W/Reflex 0.9 mmol/L (0.5-2.2)
[2025-01-02 03:37] VITALS: BP 97/58; PULSE 95; RESP 16; O2SAT 98
[2025-01-02 03:39] LABS: Alanine Aminotransferase 11 U/L (0-33); Albumin Level 4.1 g/dL (3.5-5.2); Alkaline Phosphatase 75 U/L (35-105); Anion Gap 16.8 (5-19); Aspartate Amino Transferase 16 U/L (0-32); Blood Urea Nitrogen 7 mg/dL (6-20); Calcium 8.9 mg/dL (8.5-10.5); Carbon Dioxide 23 mmol/L (22-29); Chloride 101 mmol/L (98-107); Creatinine Clr Calc Pharmacy 88.2588; Globulin 2.9 g/dL (1.3-4.6); Glucose 110 mg/dL (65-115); Osmolality Calculated 283 mOsm/kg (285-295); Potassium 3.8 mmol/L (3.5-5.1); Sodium 137 mmol/L (136-145); Total Protein 7.0 g/dL (6.6-8.7)
[2025-01-02 03:56] LABS: Glucose Urine UA Negative (Normal); Nitrate Urine Negative (Negative); Specific Gravity, Urine 1.025 (1.005-1.030)
[2025-01-02 04:01] LABS: Add Urine Microscopic? YES
[2025-01-02 04:31] LABS: Respiratory Syncytial Virus Ce NEGATIVE (Negative); SARS-CoV-2 PCR NEGATIVE (Negative)
[2025-01-02 04:56] VITALS: BP 95/58; PULSE 59; RESP 16; O2SAT 99
== END 2025-01-02 04:57 | disposition home or self-care (01) ==
PROVIDERS: Emergency Provider Emergency Medicine; PCP Family Medicine
DX: G43.909 Migraine, unspecified, not intractable, without status migrainosus (principal); Z11.52 Encounter for screening for COVID-19; F17.290 Nicotine dependence, other tobacco product, uncomplicated; Z86.73 Personal history of transient ischemic attack (TIA), and cerebral infarction without residual deficits
CPT/HCPCS: 36415; 71045; 80053; 81001; 83605; 85025; 87040; 87637; 96361; 96374; 96375; 99284; J0780; J1200; J1885; J7030

== ENCOUNTER 2025-04-05 08:26 | Emergency (ER) | payer SELFPAY ==
--- NOTE | 2025-04-05 08:32 | XRR_ITS ---
PROCEDURE INFORMATION: Exam: XR Left Ribs with PA Chest Exam date and time: 04/05/2025 8:54 AM Age: 34 years old Clinical indication: Chest wall pain; Left; Additional info: Lt lateral rib pain post fall down stairs x 2 days ago TECHNIQUE: Imaging protocol: Radiologic exam of the left ribs with PA chest. Views: 3 views COMPARISON: CR XR chest 1V portable [id number] 01/02/2025 3:31 AM FINDINGS: Lungs: Unremarkable. No consolidation. Pleural spaces: Unremarkable. No pleural effusion. No pneumothorax. Heart/Mediastinum: Unremarkable. No cardiomegaly. Bones/joints: Unremarkable. XR/XR ribs LT mn 3V w CXR1V [id number] IMPRESSION: No acute findings.
--- OUTSIDE RECORDS SUMMARY | 2025-04-05 08:34 | XMS_ITS | Encounter Summary ---
Author Organization [facility] Address [address] [place] [address] Care Team Providers Care Wet Chemistry Analyst Name Role Phone Unavailable Primary Care Provider Unavailabl e Encounter Details Date Type Department Care Team (Late st Contact Info) Description 03/25/2020 Ancillary Orders [facility] OBGYN [place] [address] [facility] [address] [place] [address] Tom Stallworth MD [address] [facility] [address] [place] [address] Insulin controlled gestational diabetes mellitus [...] declined 03/10/2020 How often do you attend buddhist or orthodoxy serv ices? Patient declined 03/10/2020 Do you belong to any clubs o r organizations such as buddhist groups, unions, fraternal or athletic groups, or [...] biophysical profile Narrative 04/02/2020 4:29 PM CDT [place] [facility] Pat. Name: THOMAS MAYBERRY Study Date: 04/02/2020 10:54am Pat. NO: [id number] Referring MD: TOM STALLWORTH Site: [facility] Ultrasound Technol: Seema Harvey : 1990 Age: 29 INDICATION Diabetes - Gestational (insulin) Insulin controlled gestational diabetes mellitus (GDM) in third trimester [O24.414 (ICD-10-CM)]; High-risk in third trimester [O09.93 (ICD-10-CM)] CODING Diagnosis Z3A.33: Weeks Gestation of O24.414: Gestational diabetes mellitus in , insulin controlled Procedures 88700: Limited OB Ultrasound 17147: NST/ monitoring HISTORY OB History 3. Para [...] Note Reji Giraldo II, MD - 04/02/2020 [place] [facility] Pat. Name:THOMAS MAYBERRYJolanta Date:04/02/2020 10:54am Pat. NO: [id number] :TOM STALLWORTH [facility]Seema Harvey :1990Age:29 INDICATION Diabetes - Gestational (insulin) Insulin controlled gestational diabetes mellitus (GDM) in third trimester [O24.414(ICD-10-CM)]; High-risk in third trimester [O09.93 (ICD-10-CM)] CODING Diagnosis Z3A.33: Weeks Gestation of O24.414: Gestational diabetes mellitus in , insulin controlled Procedures 18766: Limited OB Ultrasound 01651: NST/ monitoring HISTORY OB History 3. Para [...] symptomatic. 04/04/2020 04/14/2020 05/04/2020 8: 09 PM MANGANESE WHEELER documented as of this encounter
--- OUTSIDE RECORDS SUMMARY | 2025-04-05 08:34 | XMS_ITS | Encounter Summary ---
Author Organization [facility] Address [address] [place] [address] Care Team Providers Care Cooker Casing Name Role Phone Unavailable Primary Care Provider Unavailabl e Encounter Details Date Type Department Care Team (Late st Contact Info) Description 03/18/2020 Ancillary Orders [facility] OBGYN [place] [address] [facility] [address] [place] [address] Tom Stallworth MD [address] [facility], [facility] [address] [place] [address] Gestational diabetes mellitus (GDM) in [...] declined 03/10/2020 How often do you attend presybeterian or worship serv ices? Patient declined 03/10/2020 Do you belong to any clubs o r organizations such as presybeterian groups, unions, fraternal or athletic groups, or [...] biophysical profile Narrative 03/26/2020 1:21 PM CDT [place] [facility]PP Pat. Name: THOMAS MAYBERRY Study Date: 03/26/2020 12:27pm Pat. NO: [id number] Referring MD: TOM STALLWORTH Site: [facility] Crawler Tractor Operator: Lora Kaufman : 1990 Age: 29 INDICATION High Risk Third Trimester Diabetes - Gestational (Diet) CODING Diagnosis O09.03: High Risk O24.410: Gestational diabetes mellitus in , diet controlled Z3A.32: Weeks Gestation of Procedures 31604: Limited OB Ultrasound 74266: NST/ monitoring HISTORY OB History 3. Para [...] Enzo LUNA, Reji Ramos MD - 03/26/2020 [place] [facility] Pat. Name:iTta MAYBERRYjose luislondon Date:03/26/2020 12:27pm Pat. NO: [id number] :TOM STALLWORTH [facility] Kauf[facility] :1990Age:29 INDICATION High Risk Third Trimester Diabetes - Gestational (Diet) CODING Diagnosis O09.03: High Risk O24.410: Gestational diabetes mellitus in , diet controlled Z3A.32: Weeks Gestation of Procedures 94469: Limited OB Ultrasound 47589: NST/ monitoring HISTORY OB History 3. Para [...] gestational age Narrative 03/19/2020 11:19 AM CDT [place] Follow Up Pat. Name: THOMAS MAYBERRY Study Date: 03/19/2020 8:16am Pat. NO: [id number] Referring MD: TOM STALLWORTH Site: [facility] Crawler Tractor Operator: Seema Harvey : 1990 Age: 29 INDICATION Diabetes - Gestational (unspecified) Gestational diabetes mellitus (GDM) in third trimester, gestational diabetes method of control unspecified [O24.419 (ICD-10-CM)]; High-risk in third trimester [O09.93 (ICD-10-CM)] CODING Diagnosis O24.419: Gestational diabetes mellitus in , unspecified control Z3A.31: Weeks Gestation of Procedures 03217: OB US Follow-up HISTORY OB History 3. [...] 3 lb 8 oz EFW by Hadlock ([id number]) Head / Face / Neck Biometry: Cephalic [...] Note Reji Giraldo II, MD - 03/19/2020 [place] Follow Up Pat. Name:Edy MAYBERRY Date:03/19/2020 8:16am Pat. NO: [id number] :TOM STALLWORTH [facility] :1990Age:29 INDICATION Diabetes - Gestational (unspecified) Gestational diabetes mellitus (GDM) in third trimester, gestational diabetes method of control unspecified [O24.419 (ICD-10-CM)]; High-risk in third trimester [O09.93 (ICD-10-CM)] CODING Diagnosis O24.419: Gestational diabetes mellitus in , unspecified control Z3A.31: Weeks Gestation of Procedures 98495: OB US Follow-up HISTORY OB History 3. [...] 3 lb 8 oz EFW by Hadlock ([id number]) Head / Face / Neck Biometry: Cephalic [...] symptomatic. 04/04/2020 04/14/2020 05/04/2020 8: 09 PM COMMUNITY SERVICE ORGANIZATION DIRECTOR documented as of this encounter
--- OUTSIDE RECORDS SUMMARY | 2025-04-05 08:34 | XMS_ITS | Clinical Summary ---
Author Organization [facility] Address [address] [place] [address] Phone Care Team Providers Care Laundry Operator Wash Room Name Role Phone Unavailable Primary Care Provider [...] Encounters Date Type Department Care Team Description 03/12/2025 External Device Data STL ABSTRACTION Provider, Abstract 02/12/2025 External Device Data STL ABSTRACTION Provider, Abstract 01/29/2025 External Device Data STL ABSTRACTION Provider, Abstract [...] declined 03/10/2020 How often do you attend scientologist or alevism serv ices? Patient declined 03/10/2020 Do you belong to any clubs o r organizations such as scientologist groups, unions, fraternal or athletic groups, or [...] on file Legal Sex Female 8:36 PM ACETYLENE TORCH SOLDERER Gender Identity Not on file Sexual Orientation Not on file Last Filed Vital Signs Vital Sign Reading Time Taken Comments Blood Pressure 95/59 06/13/2024 5:45 PM ACETYLENE TORCH SOLDERER Pulse 112 06/13/2024 5:45 PM ACETYLENE TORCH SOLDERER Temperature 36.7 C (98.1 F) 06/13/2024 5:45 PM ACETYLENE TORCH SOLDERER Respiratory Rate 19 06/13/2024 5:45 PM ACETYLENE TORCH SOLDERER Oxygen Saturation 98% 06/13/2024 5:45 PM ACETYLENE TORCH SOLDERER Inhaled Oxygen Concentration - - Weight 66.1 kg (145 lb 12.8 oz) 06/13/2024 3:02 PM ACETYLENE TORCH SOLDERER Height 154.9 cm (5' 1 ) 06/13/2024 3:02 PM ACETYLENE TORCH SOLDERER Body Mass Index 27.55 06/13/2024 3:02 PM ACETYLENE TORCH SOLDERER Plan of Treatment Health Maintenance Due Date Last Done Comments DTAP/TDAP/TD VACCINES (1 - Tdap) 2010 HEPATITIS B VACCINES (1 of 3 - 19+ 3-dose series) 2010 HPV/Cotest (21-29) 2012 HPV VACCINES (1 - 3-dose SCDM series) 2018 HPV/Cotest (30-65) 2021 CERVICAL CANCER SCREENING 11/14/2022 PAP SMEAR 11/14/2022 11/15/2019, 11/15/2019 INFLUENZA VACCINE (#1) 2025 Medical Devices Implanted Type Area Parachute Packer Device Identifier Shelf Expiration Date Model / Serial / Lot Steward/Stewardess Lounge Ligamax Endo Multi Clip 5mm El5ml - [id number] Implanted: by Karen Sapp MD (Quantity not on file) Clip N/A: Abdomen [employer]- [employer] [id number] 05/26/2024 [id number] / / [id number] Procedures Procedure Name Priority Date/Time Associated Diagnosis Comments CERV/VAG CYTO AGE BASED SCREEN PAP W CT/NG Routine 11/15/2019 4:47 PM CDT from Last 3 Months or Most Recently Relevant to Health Maintenance Results * CERV/VAG CYTO AGE BASED SCREEN PAP W CT/NG (11/15/2019 4:47 PM CDT) COMMENT (PAP): SEE COMMENT 0 1:51 PM CDT [facility] Comment: This order for age-based cervical cancer and STI screening follows ACOG guidelines(PB 168, 140, BIF653). See individual assays for performing site location. CLINICAL INFORMATION Information not provided 11/23/2019 1:51 PM CDT [facility] ST LAST MENSTRUAL PERIOD INFORMATION NOT PROVIDED 11/23/2019 1:51 PM CDT [facility] STLO PREV PAP: INFORMATION NOT PROVIDED 11/23/2019 1:51 PM CDT [facility] ST PREV BX: INFORMATION NOT PROVIDED 11/23/2019 1:51 PM CDT [facility] ST SOURCE Endocervix 11/23/2019 1:51 PM CDT [facility] ST ADEQUACY: SEE COMMENT 11/23/2019 1:51 PM CDT [facility] Comment: Satisfactory for evaluation. Endocervical/transformation zone component present. Age and/or menstrual status not provided PAP INTERP Negative for intraepithelial lesion or malignancy. 11/23/2019 1:51 PM CDT [facility] ST COMMENT This Pap test has been evaluated with computer assisted technology. 11/23/2019 1:51 PM CDT [facility] ADVERTISING INTERNSHIP: SEE COMMENT 2019 1:51 PM CDT [facility] Comment: YQ, CT(ASCP) CT screening location: [place] [address] [place] [address] EXPLANATORY NOTE SEE COMMENT 020 1:51 PM CDT [facility] Comment: EXPLANATORY NOTE: The Pap is a [...] PM CDT 11/21/2019 10:10 AM CDT Narrative [facility] - 11/23/2019 1:51 PM CDT Performing Organization Information: Site ID: [place] Name: [facility] Address: [address] [address] Director: Con Leonardo D.O., MPH Site ID: [place] [facility]: [facility] Address: [address] [place] [address] Director: Callum Harris us Yue Stallworth MD PATHOLOGY/CYTOLOGY ORDERAB LES Final Result [facility] [phone] [facility] from Last 3 Months or Most Recently Relevant to Health Maintenance Insurance * Guarantor: THOMAS MAYBERRY Account Type Relation to Patient Date of Phone Billing Address Personal/Family [address] [place] [address] RX INFOCROSSING Medicaid
--- OUTSIDE RECORDS SUMMARY | 2025-04-05 08:34 | XMS_ITS | Clinical Summary ---
Author Organization [facility] Address [address] [place] [address] Phone Care Team Providers Care Rn Staff Name Role Phone Unavailable Primary Care Provider [...] declined 03/10/2020 How often do you attend sikhism or restoration serv ices? 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 See individual assays for performing site location. [...] 11/23/2019 1:51 PM CDT [facility] NIPPLE THREADER: SEE COMMENT 2019 1:51 PM CDT [facility] Comment: YQ, CT(ASCP) CT screening location: [place] [address] [place] [address] EXPLANATORY NOTE SEE COMMENT 020 1:51 PM [...] Performing Organization Information: Site ID: [place] Name: [facility] Address: [address] [address] Director: Con Leonardo D.O., MPH Site ID: [place] [facility] Address: [address] [place] [address] Director: Callum Harris us Yue Stallworth MD PATHOLOGY/CYTOLOGY ORDERAB LES Final Result [facility] [phone] from Last 3 Months or Most Recently Relevant to Health Maintenance [place] [address] [place] [address] Member Subscriber Plan / Payer (Ef fective 2019-Present) Name:Thomas Mayberry Relation to Subscriber:Self Name:Thomas Mayberry Payer ID:[id number] (NAIC) Group ID:Not on file Type:Medicaid Managed Care Address: [place] [id number] PPO RX INFOCROSSING Medicaid Advance Directives For more information, please contact: [phone] * Full Code (Latest Code Status on [...]
--- OUTSIDE RECORDS SUMMARY | 2025-04-05 08:34 | XMS_ITS | Encounter Summary ---
Author Organization [facility] Address [address] [place] [address] Care Team Providers Care Flight Operations Engineer Name Role Phone Unavailable Primary Care Provider Unavailabl e Reason for Visit * Reason Onset Date Comments Vomiting 04/13/2020 Encounter Details Date Type Department Care Team ([facility] st Contact Info) Description 04/13/2020 Telephone [facility] Labor and Delivery [address] [place] [address] Yue Stallworth MD [address] [facility], [facility] [address] [place] [address] Vomiting Social History Tobacco Use [...] declined 03/10/2020 How often do you attend religious or restoration serv ices? Patient declined 03/10/2020 Do you belong to any clubs o r organizations such as religious groups, unions, fraternal or athletic groups, or [...] Present: no per BF Vaginal Bleeding: unknown [place]: N/A Last Vaginal Exam: na Complications with [...] symptomatic. 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
[2025-04-05 08:44] VITALS: BP 101/59; PULSE 81; RESP 18; TEMP 36.6; O2SAT 100
--- NOTE | 2025-04-05 09:11 | ED_ITS ---
HPI - General Adult General: Chief complaint: General Medical Stated complaint: R side upper Rib pain hard to breath Time Seen by Provider: 04/05/25 08:34 History of Present Illness: 34-year-old female presents emergency ro om complaining of left-sided rib pain. Initial triage notes a stated complaint of right confirmed to the patient it was left. Patient states she got drunk 2 days ago she fell on stairs she has some ecchymosis of her left lower eyelid she also complaining of left mid axillary line rib pain at the level of the 7th or 8th ribs she has has pain with deep inspiration. She denies any hemoptysis. She denies being assaulted. Associated symptoms: Reports chest pain; Deny dyspnea or rash Related Data Previous Rx's ?Medication ?Instructions ?Recorded naproxen 500 mg tablet (Naprosyn) 500 mg PO BID PRN pa in #20 tabs 07/26/24 albuterol sulfate 90 mcg/actuation 2 puff inhalation Q 6H PRN 03/20/25 aerosol inhaler shortness of breath or wheez ing #8.5 grams diclofenac sodium 75 mg 75 mg PO Q12H PRN pain #20 t abs 04/05/25 tablet,delayed release Allergies Allergy/AdvReac Type Severity Reaction Status Date / Time metoclopramide (From Reglan) Allergy ADR-Anxiety Verified 06/25/24 09:36 Review of Systems Const: Denies: fever(s) or chills Card: Reports: chest pain Resp: Denies: dyspnea GI: Denies: abdominal pain : Denies: dysuria, urinary frequency or urinary urgency Musc: Denies: neck pain or back pain Skin/Breast: Denies: rash PFSH ED PFSH: Medical History Cough Cerebrovascular accident Migraine headache Surgical History S/P section (04/27/20) RLTCS. Performed by Dr. Lopez at [facility] S/P laparoscopic cholecystectomy (~10/2019) Was at the time. S/P primary low transverse (08/03/14) Performed by Dr. Lopez at [facility] in [place], [place]. Confirmed LTCS with 2 layer closure. Family History Denies family history of Diabetes Anesthesia complication Bleeding disorder Hypertension Stroke Social History Smoking and tobacco/nicotine status: current every day tobacco/nicotine user (vapes daily) Quit status (tobacco/nicotine): has quit using Year quit tobacco: 04/2019 Former quit date comment: Was smoking 1 PPD until switched to vaping in 2017. Quit in 04/2019. Alcohol intake: never Substance/Drug Use: never Female Reproductive History: Para: 1 Spontaneous abortions: No Physical Exam Const: COMMON NORMALS: no acute distress GENERAL APPEARANCE: cooperative and comfortable ORIENTATION/CONSCIOUSNESS: Yes awake, Yes oriented to person, Yes oriented to place and Yes oriented to time HENMT: COMMON NORMALS: normocephalic, hearing grossly normal bilaterally, external ears normal, EAC's normal, TM's normal bilaterally and Normal nasal mucous membranes and turbinates present HEAD & SCALP: normocephalic NOSE: Normal nasal mucous membranes and turbinates present EXTERNAL EAR: Yes external ears normal EXTERNAL AUDITORY CANAL: EAC's normal TYMPANIC MEMBRANE: TM's normal bilaterally OTHER: Ecchymosis of the left lower eyelid no pain or crepitus to palpation in the inferior superior orbital ridges Eye: COMMON NORMALS: Equal, round and reactive pupils present, EOMs intact bilaterally, conjunctivae normal and no scleral icterus CONJUNCTIVA: Yes conjunctivae normal PUPIL: Yes Equal, round and reactive pupils present Neck/C-Spine: COMMON NORMALS: full ROM, no lymphadenopathy, supple and no JVD Chest: OTHER: Examination chest wall there is no evidence of subcutaneous emphysema no bruising. Mildly tender at the level of 6 seventh left ribs at the midaxillary line. Resp: COMMON NORMALS: normal respiratory effort, No retractions, No use of accessory muscles and clear to auscultation bilaterally AUSCULTATION: clear to auscultation bilaterally Cardio: COMMON NORMALS: no JVD, regular rate, regular rhythm and No murmurs p resent (Cardio) RATE: regular rate RHYTHM: regular rhythm GI: COMMON NORMALS: Soft to palpation and No hepatosplenomegaly present AUSCULTATION: Yes normoactive bowel sounds PALPATION: Yes Soft to palpation, No Tenderness to palpation present (GI), No Guarding due to palpation present (GI) and Yes No hepatosplenomegaly present Extremity: COMMON NORMALS: normal to inspection, capillary refill normal, no clubbing, cyanosis or edema, no calf tenderness and no pedal edema Neuro: SENSORIUM/ORIENTATION: Yes oriented to person, Yes oriented to place and Yes oriented to time Skin: COMMON NORMALS: no rashes or lesions noted GENERAL SKIN EXAM: no rashes or lesions noted Course Vital Signs: Vital signs: Vital Signs Temperature 97.8 F 04/05/25 08:44 Pulse Rate 81 04/05/25 08:44 Respiratory Rate 18 04/05/25 08:44 Blood Pressure 101/59 04/05/25 08:44 Pulse Oximetry 100 04/05/25 08:44 Oxygen Delivery Me thod Room Air 04/05/25 08:44 MDM - General Adult Medical Decision Making Rib contusion no fractures on x-ray. Neurologically patient intact no focal neurologic deficits are noted. She has not had any nausea or vomiting dizziness or vision changes since the fall. Reviewed findings with the patient will discharge home or follow-up as needed Medical Records I reviewed the patient's medical records. Lab Data I reviewed the patient's lab results. Radiology Impressions Ribs X-Ray 04/05/25 08:32 IMPRESSION: No acute findings. All radiology interpretation(s) finalized by discharge Discharge Plan Discharge Patient Disposition: Home Clinical Impression: Contusion of rib on left side Condition: Stable Prescriptions: New diclofenac sodium 75 mg tablet,delayed release (DR/EC) 75 mg PO Q12H PRN (Reason: pain) Qty: 20 0RF No Action albuterol sulfate 90 mcg/actuation HFA aerosol inhaler 2 puff inhalation Q6H PRN (Reason: shortness of breath or wheezing) Qty: 8.5 1RF naproxen [Naprosyn] 500 mg tablet 500 mg PO BID PRN (Reason: pain) Qty: 20 0RF Discharge Orders: Discharge ED (Routine); Ordered 04/05/25 Ordered By: Noah Steinberg Referrals: Steven Walker MD [Primary Care Provider, Family Practice] Discharge Diet: Usual diet Discharge Activity: Increase activity as tolerated Patient Instructions: Opioid Safety, Pain Management, Patient Portal & [place] Instructions Activity Restrictions/Additional Instructions: Thank you for choosing [facility] for your healthcare needs today. It is very important that you follow up as instructed or that you return to the Emergency Department should you have concerns or if your condition changes or worsens in any way. Emergency department visits are focused on emergent conditions, in some cases you may require further evaluation on an outpatient basis. You were seen in the emergency room complaining of left rib pain. Chest and rib x-rays appeared normal. You reported you had fallen and hit your ribs 2 days ago. You are given a prescription for diclofenac to use as needed. (Please note that included in your discharge packet is information concerning opoid safety and pain management. This information is given to all patients were discharged from the ER regardless of their discharge diagnosis or the medicines they usually take or are prescribed.) Print Language: Yoruba Coding Level of Care Code ED Medical Officer Psychiatry for Molly Miles
== END 2025-04-05 09:39 | disposition home or self-care (01) ==
PROVIDERS: Emergency Provider Family Medicine; PCP Family Medicine
DX: S20.212A Contusion of left front wall of thorax, initial encounter (principal); F17.290 Nicotine dependence, other tobacco product, uncomplicated; Z86.73 Personal history of transient ischemic attack (TIA), and cerebral infarction without residual deficits; W10.9XXA Fall (on) (from) unspecified stairs and steps, initial encounter
CPT/HCPCS: 71101; 99283